=== PATIENT | female | born 1965 | race Caucasian/White ===

== ENCOUNTER 2020-11-24 08:58 | Outpatient (CLI) | payer BC, SELFPAY ==
--- NOTE | ~2020-11-24 | US_ITS ---
US abdomen limited DATE: 11/24/2020 09:23 INDICATION: Epigastric and right upper quadrant abdominal pain TECHNIQUE: Real-time imaging of liver, pancreas, gallbladder areas COMPARISON: 02/21/[address] abdomen pelvis FINDINGS: There is no evidence of gallstones, gallbladder wall thickening or abnormal pericholecystic fluid collection. Negative sonographic Burns's sign. The common bile duct measures 5 mm, within nor mal limits. Hepatic steatosis. No hepatic space-occupying mass lesion is evident. Normal hepatopedal portal venou s flow direction. The pancreatic tail is obscured. The pancreas is otherwise unremarkable. IMPRESSION: Hepatic steatosis Negative gallbladder The pancreatic tail is obscured by bowel gas and not evaluated Reviewed, dictated and finalized at [facility]. Reviewed, dictated and finalized at [facility].
== END 2020-11-24 08:59 | disposition home or self-care (01) ==
PROVIDERS: PCP Internal Medicine; Visit Provider Internal Medicine
DX: R10.13 Epigastric pain (principal); K76.0 Fatty (change of) liver, not elsewhere classified
CPT/HCPCS: 76705

== ENCOUNTER → 2021-05-04 12:10 | Outpatient (CLI) | payer BC, SELFPAY ==
--- NOTE | ~2021-05-04 | MM_ITS ---
EXAMINATION: MM scrn blake implant BI w latanya HISTORY: Screening mammogram TECHNIQUE: Craniocaudal and mediolateral oblique 3-D tomosynthesis images with implant displacement a nd synthetic 2-D images were generated. Craniocaudal and mediolateral oblique views of the breasts wi thout implant displacement were obtained using full field digital mammography. CAD analysis was submi tted and interpreted. COMPARISON: 07/2011 bilateral implant screening mammogram BREAST PARENCHYMAL COMPOSITION: The breasts are heterogeneously dense, which may obscure small masses . FINDINGS: There are bilateral collapsed breast implants with some adjacent calcifications. Biopsy marker is present in the left breast; history of benign left breast stereotactic biopsy in 201 0. There is no evidence of suspicious mass, calcification, or architectural distortion to suggest mal ignancy in either breast. There has been no suspicious interval change. IMPRESSION: 1. No mammographic evidence of malignancy. 2. Recommend routine screening mammography in one year. BI-RADS Category 1: Negative Reviewed, dictated and finalized at location [facility].
== END ==
PROVIDERS: PCP Internal Medicine; Visit Provider Internal Medicine
DX: Z12.31 Encounter for screening mammogram for malignant neoplasm of breast (principal)
CPT/HCPCS: 77063; 77067

== ENCOUNTER 2021-08-16 00:08 | Day surgery (SDC) | payer OTHER, SELFPAY ==
[2021-08-11 09:38] VITALS: BMI 24.3
--- NOTE | 2021-08-11 09:39 | PC.NURSE ---
Report to the Outpatient Waiting Room, entrance under the green pavilion located off [facility], at time __1100__ on date __[id number]_. OR Time: _1300__. - You and your visitor will be asked a series of questions to screen for COVID 19 for your protection. - A mask is required within the hospital. - Only one visitor is allowed at this time. Patient visitors will be guided where to wait when not with patient. Preoperative COVID Testing Requirements: No COVID Test needed if: (proof is required; if not received patient will have Rapid Test prior to entry) - Patient has received COVID Vaccine at least 14 days prior to procedure date or - Patient has positive COVID test result within last 90 days of surgery date. COVID Test needed if above criteria is not met If not COVID vaccinated a COVID test must be conducted within 72 hours of surgery and patient is asked to isolate self from time of testing until procedure. You will go to the [facility] for your COVID testing. The [facility] site is located at the corner of [address] [facility]. You will only be called if COVID results are positive and your surgeon may reschedule your elective surgery date. Patients may have clear liquids (water, carbonated beverages, clear teas, apple juice) until 3 hours prior to surgery with a maximum of 20 ounces. - No food from midnight until time of surgery - Infants may have breast milk until 4 hours before surgery, infant formula 6 hours prior to surgery. - Children will be allowed to drink immediately following surgery. If applicable, please bring a bottle or sippy cup to assist with drinking. Juice, water, soda, and popsicles are readily available. For infants on formula, please bring formula the day of surgery. Pacifiers are allowed. Take the following medications with a SIP of water the morning of surgery: Medications to discontinue per physician Date to take last dose Please no make-up, nail bengali, hairspray, perfume, deodorant, or body powder the day of surgery. No jewelry (including any body piercings) or valuables the day of surgery, leave them at home. Please take a shower or bath the night before, or the morning of, surgery with an antibacterial soap. Wear comfortable, loose fitting clothing. Children are encouraged to wear pajamas. - Jewelry must be removed prior to entering the operating room. Rings and piercings that are not removed may be cut off. - The hospital will not accept responsibility for valuables. - Please leave all valuables, including medications, at home the day of surgery. If you are going home after surgery, a licensed delivery driver must drive you home. - NO public transportation without another adult. - We recommend that an adult stay with you for 24 hours following discharge. - We also recommend that you do not drive, make important decision, drink alcoholic beverages, or take any drugs that were not prescribed by your health care provider for at least 24 hours after your discharge time. For Pediatric surgeries, we recommend two adults accompany the child home (only one inside the building at this time). Follow any additional instructions given to you from your surgeon. Telephone instructions given to patient___and asked if any additional questions and then verbalized understanding. Patient advised to call surgeon office or pre surgery nurse liaison [phone] if any additional questions.
[2021-08-16] VITALS (9 sets, daily range): BP systolic 116–142; BP diastolic 74–87; PULSE 91–103; RESP 12–18; TEMP 36.4–36.9; O2SAT 93–100
[2021-08-16] MEDS: LACTATED RINGERS 1,000 ML 30 ML IV CONT ×2 (11:25→14:45)
[2021-08-16] MEDS: ONDANSETRON INJ 4 MG/2 ML VIAL IV PUSH (11:36)
[2021-08-16] MEDS: FAMOTIDINE 20 MG/2 ML VIAL IV PUSH (11:36)
--- NOTE | 2021-08-16 12:37 | P.PNAN_ITS ---
Anes - Initial Pre Proc Eval Procedure: Operation Date: 08/16/21 13:00 Proposed Procedures p Bilateral Breast Implant Exchange - Rey Stern MD Date/Time: 08/16/21 12:37 Surgeon: Rey Stern MD Pre Op Diagnosis: right breast implant rupture Patient Data Age: 56 Gender: F Height: 1.73 m Weight: 72 kg Last Vital Signs Temp 36.9 C 08/16/21 11:40 Pulse 97 08/16/21 11:40 Resp 16 08/16/21 11:40 BP 132/85 08/16/21 11:40 Pulse Ox 100 08/16/21 11:40 Allergies Allergy/AdvReac Type Severity Reaction Status Date / Time codeine AdvReac Mild Nausea Verified 08/16/21 11:05 prednisone AdvReac Mild Headache Verified 08/16/21 11:05 Home Medications Medication Instructions Recorded Confirmed Type meloxicam 15 mg tablet 15 mg PO DAILY tablet 07/29/20 08/11/21 History fenofibrate 160 mg tablet 160 mg PO DAILY #90 tablet 04/25/21 08/11/21 Rx acamprosate 333 mg tablet,delayed 666 mg PO TID #180 tablet 06/20/21 08/11/21 Rx release duloxetine 60 mg capsule,delayed 60 mg PO DAILY #30 cap 06/30/21 08/16/21 Rx release doxepin 10 mg capsule See Rx Instructions .ROUTE 07/18/21 08/11/21 Rx .COMPLEX #60 cap docusate sodium 100 mg capsule 100 mg PO DAILY #14 cap 08/02/21 08/11/21 Rx chlordiazepoxide HCl 25 mg capsule 25 mg PO BID PRN #50 cap 08/09/21 08/11/21 Rx Patient hx anesthesia problems: post op nausea/vomiting Family hx anesthesia problems: none Results Review: All pre-operative results and documents have been reviewed as part of the pre-operative evaluation. [facility] Past Medical History Medical History Alcoholism Anemia Colonic inertia Generalized anxiety disorder Hyperlipidemia Hypertension Liver lesion Vitamin D deficiency Surgical History Surgical History H/O breast augmentation 08/16/2021 H/O colectomy 2002 Family History Family History Father Family history of thyroid disease Mother Patient's mother is Sibling Asthma Social History Social History Social History: caffeine-daily Smoking status: Never smoker Alcohol intake: former Alcohol use details: Pt last drink was 06/25/2019 Living arrangements: alone Spiritual care concerns: No Anes - Eval Final PreProcedure Day of Procedure 08/16/21 12:37 Patient weight: normal Heart: regular rate and rhythm Lungs: clear to auscultation Airway: Mallampati scale class II Neurological: alert and oriented Last oral intake: >/= 8 hours ASA classification: III Emergent: no Anesthetic plan: proceed Anesthesia type and monitoring: general LMA and standard monitoring Results Review: All pre-operative results and documents have been reviewed as part of the pre-operative evaluation. Informed Consent: The patient's anesthetic plan and its attendant risks and benefits were discussed with the patient/family/POA. Questions were solicited and answers provided to the satisfaction of the patient/family/POA.
[2021-08-16] MEDS: SCOPOLAMINE 1.5 MG PATCH TRANSDERM (12:53)
--- NOTE | 2021-08-16 12:56 | WPDHPUPDATE1 ---
History and Physical Update Update Date/Time: 08/16/21 12:56 History and Physical has been reviewed, including an updated exam of the patient. There are NO changes in the patient's condition. Risks, benefits, and alternatives have been discussed and questions answered. Patient agrees to proceed with procedure.
--- NOTE | 2021-08-16 13:05 | W.PM.PROC2 ---
Procedure Note - Detailed Date of Procedure 08/16/21 Pre-op Diagnosis right breast implant rupture Post-op Diagnosis same Procedure Performed Bilateral breast implant exchange Surgeon Rey Stern MD Anesthesia general Findings Previous implants: Textured 300cc saline. Bilateral ruptured. New Implants: Bilateral Natrelle Saline Smooth 325cc filled to 340cc Right - REF# [id number] SN [id number] - REF# [id number] SN [id number] Description of Procedure Preoperatively the risks, benefits, alternatives were discussed in extensive detail. I wanted her to be very realistic about the risks involved as well as expectations. Made sure answered all of her questions to her satisfaction. She understands she has ptosis and will still have this ptosis. This does not correct that. We are simply replacing her previous implants. Further she understands I can never guarantee final size as we do not know her current implant size. There can be discrepancy because we do not have this information available. She would like to send capsules (at her expense) to pathology if textured. All questions were answered to her satisfaction today. Consent obtained. She was marked in the preoperative holding area with her verification. She was taken to the operating room placed supine on the operating table. Anesthesia provided by anesthesiology and prepped and draped in a standard sterile fashion. Surgical time-out was taken. 1% lidocaine and 0.25% Marcaine with epinephrine was used anesthetize as a field block. Fifteen blade used to make an incision at the previous IMF incision dissection was continued down to the pocket was identified. Implants removed. I copiously irrigated with 3 L of saline solution. Capsulotomy is were performed as necessary (subtotal) due to textured implants. The capsules were sent to pathology. No worrisome features. I then copiously irrigated with triple antibiotic Betadine solution. Wash my gloves. Throughout the procedure we had Tegaderm nipple Adam in place. On the back table I prepared the saline implant this was introduced into the pocket. We filled using a fill kit to the volumes as above. This was closed using 2-0 Vicryl followed by 3-0 Monocryl in a running subcuticular 4-0 Monocryl. Final closure was tissue glue. Estimated Blood Loss 30 Drains No Packing Yes (Bilateral capsules) Pathology none sent Complications No immediate complications Condition stable Disposition PACU
[2021-08-16] MEDS: MIDAZOLAM HCL (*CRX) 2 MG/2 ML VIAL IV PUSH (13:06)
[2021-08-16] MEDS: ceFAZolin 2 GM/D5W 50 ML 2 GM/50 ML BAG IVPB (13:33)
[2021-08-16] MEDS: BUPIVACAINE HCL 0.25% PF 30 ML VIAL INFILTRATE (14:00)
[2021-08-16] MEDS: LIDO 1%/EPINEPHRINE 1:100,000 50 ML VIAL INFILTRATE (14:00)
== END 2021-08-16 16:45 | disposition home or self-care (01) ==
PROVIDERS: PCP Internal Medicine; Visit Provider Surgery Plastic and Reconstructive Surgery
PROC: (CPT 19342; principal; 2021-08-16 13:00)
DX: T85.41XA Breakdown (mechanical) of breast prosthesis and implant, initial encounter (principal); Y83.8 Other surgical procedures as the cause of abnormal reaction of the patient, or of later complication, without mention of misadventure at the time of the procedure; I10 Essential (primary) hypertension; E78.5 Hyperlipidemia, unspecified; D64.9 Anemia, unspecified; F41.1 Generalized anxiety disorder; Z90.49 Acquired absence of other specified parts of digestive tract; F10.21 Alcohol dependence, in remission
CPT/HCPCS: 19370; 19325; 88304; A9270; J0171; J0690; J1580; J2250; J2270; J2405; J2704; J7120

== ENCOUNTER 2021-11-19 09:53 | Outpatient (CLI) | payer BC, SELFPAY ==
[2021-11-19 10:16] LABS: Basophils Percent Auto 1.2 % (0.2-1.2); Eosinophils Absolute Auto 0.2 K/mm3 (0-0.3); Eosinophils Percent Auto 5.6 % (0-4.4); Hematocrit 26.6 % (37.0-47.0); Hemoglobin 7.9 g/dL (12.0-15.0); Lymphocytes Absolute Auto 1.12 K/mm3 (0.9-3.2); Lymphocytes Percent Auto 33.1 % (18.3-44.2); Mean Corpuscular HGB Conc 29.7 g/dl (32-36); Mean Corpuscular Hemoglobin 22.6 pg (26-34); Monocytes Absolute Auto 0.5 K/mm3 (0.1-0.6); Monocytes Percent Auto 14.8 % (2.6-8.5); Neutrophils Absolute Auto 1.5 K/mm3 (1.3-6.7); Neutrophils Percent Auto 45.3 % (45.5-73.1); Platelet Count Result 213 k/mm3 (150-375); Red Cell Distribution Width 18.7 % (11.5-14.5); Reticulocyte Hemoglobin Conten 22.6 pg (28.2-35.7); Reticulocyte Percent 1.52 % (0.7-4.3); Reticulocytes Absolute 0.05 B/L (32.2-175.7); White Blood Count 3.4 K/mm3 (4.5-10.0)
[2021-11-19 10:30] LABS: Anisocytosis 1+ (NORMAL); Hypochromasia 2+ (NORMAL); Platelet Estimate Adequate (Adequate)
== END 2021-11-19 09:54 | disposition home or self-care (01) ==
LOC: ANHLAB 09:55
PROVIDERS: PCP Internal Medicine; Visit Provider Internal Medicine
DX: D64.9 Anemia, unspecified (principal)
CPT/HCPCS: 36415; 85025; 85046; 86850; 86900; 86901

== ENCOUNTER 2021-12-13 12:09 | Outpatient (CLI) | payer BC, SELFPAY ==
[2021-12-13 12:33] LABS: Basophils Absolute Auto 0.1 K/mm3 (0.0-0.1); Basophils Percent Auto 1.6 % (0.2-1.2); Eosinophils Absolute Auto 0.2 K/mm3 (0-0.3); Eosinophils Percent Auto 4.6 % (0-4.4); Hematocrit 23.6 % (37.0-47.0); Hemoglobin 7.3 g/dL (12.0-15.0); Immature Granulocyte Absolute 0.01 K/mm3 (0.00-0.031); Immature Granulocyte Percent A 0.2 % (0-0.5); Lymphocytes Absolute Auto 1.23 K/mm3 (0.9-3.2); Lymphocytes Percent Auto 24.5 % (18.3-44.2); Mean Corpuscular HGB Conc 30.9 g/dl (32-36); Mean Corpuscular Hemoglobin 23.6 pg (26-34); Mean Corpuscular Volume 76.4 fl (80-100); Mean Platelet Volume 9.2 fl (7.4-10.4); Monocytes Absolute Auto 0.8 K/mm3 (0.1-0.6); Monocytes Percent Auto 15.7 % (2.6-8.5); Neutrophils Absolute Auto 2.7 K/mm3 (1.3-6.7); Neutrophils Percent Auto 53.4 % (45.5-73.1); Platelet Count Result 330 k/mm3 (150-375); Red Blood Count 3.09 M/mm3 (4.2-5.4); Red Cell Distribution Width 21.4 % (11.5-14.5)
== END 2021-12-13 12:10 | disposition home or self-care (01) ==
LOC: ANHLAB 12:11
PROVIDERS: PCP Internal Medicine; Visit Provider Internal Medicine
DX: D64.9 Anemia, unspecified (principal)
CPT/HCPCS: 36415; 85025

== ENCOUNTER 2021-12-14 08:49 | Outpatient (RCR) | payer BC, SELFPAY ==
[2021-12-14 09:08] LABS: Hematocrit 26.7 % (37.0-47.0); Hemoglobin 7.7 g/dL (12.0-15.0)
[2021-12-14] MEDS: SODIUM CHLORIDE 0.9% IV 250 ML 30 ML IV CONT (10:33)
[2021-12-14 10:38] VITALS: BP 141/91; PULSE 85; RESP 18; TEMP 36.4; O2SAT 100
[2021-12-14 10:53] VITALS: BP 140/89; PULSE 87; RESP 18; TEMP 36.7; O2SAT 100
[2021-12-14 11:53] VITALS: BP 142/91; PULSE 84; RESP 16; TEMP 36.8; O2SAT 100
[2021-12-14 12:53] VITALS: BP 144/92; PULSE 79; RESP 18; TEMP 36.5; O2SAT 100
[2021-12-14 13:32] VITALS: BP 147/88; PULSE 81; RESP 18; TEMP 36.7; O2SAT 100
== END 2022-03-14 23:59 | disposition home or self-care (01) ==
LOC: ANHCPCTRAN 08:49
PROVIDERS: PCP Internal Medicine; Visit Provider Internal Medicine
DX: D64.9 Anemia, unspecified (principal)
CPT/HCPCS: 36415; 36430; 85014; 85018; 86850; 86900; 86901; 86920; J7050; P9016

== ENCOUNTER 2021-12-15 01:01 | Day surgery (SDC) | payer BC, SELFPAY ==
[2021-11-30 10:35] VITALS: BMI 24.5
--- NOTE | 2021-11-30 10:38 | PC.NURSE ---
Patient has not received a call from [facility] yet. Provided phone number of pharmacy for patient to follow up.
[2021-12-15 09:35] VITALS: BP 166/81; PULSE 97; RESP 18; TEMP 36.6; O2SAT 99; BMI 24.7
[2021-12-15] MEDS: LACTATED RINGERS 1,000 ML 150 ML IV CONT (10:03)
--- NOTE | 2021-12-15 10:21 | PM.HPGS ---
History of Present Illness History of Present Illness Consent: Risks, benefits, and alternatives have been discussed and questions answered. Patient agrees to proceed with procedure. Chief complaint: anemia Narrative: Rama Sol is a 56 year old female was found to be anemic. Her hemoglobin has dropped to 7.3. Last year her hemoglobin was greater than 11. At that time a ferritin level was normal. She does have a history of heavy alcohol abuse Review of Systems Review of Systems: All systems reviewed & are unremarkable except as noted in HPI and below PMFSH Past Medical History Medical History Alcoholism Anemia Colonic inertia Generalized anxiety disorder Hyperlipidemia Hypertension Liver lesion Vitamin D deficiency Surgical History Surgical History H/O breast augmentation 08/16/2021 H/O colectomy 2002 Family History Family History Father Family history of thyroid disease Mother Patient's mother is Sibling Asthma Social History Social History Social History: caffeine-daily Smoking status: Never smoker Alcohol intake: former Substance use: never Substance use type: does not use Living arrangements: alone Spiritual care concerns: No Meds Home Medications and Allergies Home Medications Medication Instructions Recorded Confirmed Type meloxicam 15 mg tablet 15 mg PO DAILY 07/29/20 12/15/21 History fenofibrate 160 mg tablet 160 mg PO DAILY #90 tabs 04/25/21 12/15/21 Rx acamprosate 333 mg tablet,delayed 666 mg PO TID #180 tabs 09/19/21 12/15/21 Rx release duloxetine 60 mg capsule,delayed 60 mg PO DAILY #90 caps 10/19/21 12/15/21 Rx release chlordiazepoxide HCl 25 mg capsule 25 mg PO TID PRN anxiety and 11/01/21 12/15/21 Rx alcohol cravings #50 caps sodium sul 1.479 gram-potas ch See Rx Instructions PO PER PKG DIR 11/21/21 12/15/21 Rx 0.188 gram-magnes sul 0.225 gram #24 tabs tablet (Sutab) doxepin 10 mg capsule 20 mg PO HS PRN Insomnia 11/30/21 12/15/21 History Allergies Allergy/AdvReac Type Severity Reaction Status Date / Time propofol AdvReac Intermediate Confusion Verified 12/15/21 09:49 codeine AdvReac Mild Nausea Verified 12/15/21 09:49 prednisone AdvReac Mild Headache Verified 12/15/21 09:49 Vital Signs Vital Signs - 24 hr 12/15/21 09:35 Temperature 36.6 C Pulse Rate 97 Respiratory Rate 18 Blood Pressure 166/81 H Pulse Oximetry 99 Oxygen Delivery Room Air Exam Const: General: alert Orientation/consciousness: patient oriented x3 Resp: Auscultation: clear to auscultation bilaterally Cardio: Rhythm: regular rhythm GI: GI Palp: Yes Soft to palpation and No Tenderness to palpation present (GI) Neuro: General: patient oriented x3 Assessment and Plan Assessment and plan (1) Iron deficiency anemia: Code(s): D50.9 - Iron deficiency anemia, unspecified Status: Acute Assessment and Plan: EGD with possible biopsy or dilatation or cautery. Colonoscopy with possible biopsy or polypectomy or cautery or injection of substances.
--- NOTE | 2021-12-15 10:24 | WPDANESEPPF ---
Anes - Initial Pre Proc Eval Procedure: Operation Date: 12/15/21 11:00 Proposed Procedures p Esophagogastroduodenoscopy & Colonoscopy - Ross Peacock MD Date/Time: 12/15/21 10:24 Surgeon: Ross Peacock MD Pre Op Diagnosis: anemia Patient Data Age: 56 Gender: F Height: 1.73 m Weight: 73.8 kg Last Vital Signs Temp 97.9 F 12/15/21 09:35 Pulse 97 12/15/21 09:35 Resp 18 12/15/21 09:35 BP 166/81 H 12/15/21 09:35 Pulse Ox 99 12/15/21 09:35 O2 Del Method Room Air 12/15/21 09:35 Allergies Allergy/AdvReac Type Severity Reaction Status Date / Time propofol AdvReac Intermediate Confusion Verified 12/15/21 09:49 codeine AdvReac Mild Nausea Verified 12/15/21 09:49 prednisone AdvReac Mild Headache Verified 12/15/21 09:49 Home Medications Medication Instructions Recorded Confirmed Type meloxicam 15 mg tablet 15 mg PO DAILY 07/29/20 12/15/21 History fenofibrate 160 mg tablet 160 mg PO DAILY #90 tabs 04/25/21 12/15/21 Rx acamprosate 333 mg tablet,delayed 666 mg PO TID #180 tabs 09/19/21 12/15/21 Rx release duloxetine 60 mg capsule,delayed 60 mg PO DAILY #90 caps 10/19/21 12/15/21 Rx release chlordiazepoxide HCl 25 mg capsule 25 mg PO TID PRN anxiety and 11/01/21 12/15/21 Rx alcohol cravings #50 caps sodium sul 1.479 gram-potas ch See Rx Instructions PO PER PKG DIR 11/21/21 12/15/21 Rx 0.188 gram-magnes sul 0.225 gram #24 tabs tablet (Sutab) doxepin 10 mg capsule 20 mg PO HS PRN Insomnia 11/30/21 12/15/21 History Patient hx anesthesia problems: none Family hx anesthesia problems: none Results Review: All pre-operative results and documents have been reviewed as part of the pre-operative evaluation. [facility] Past Medical History Medical History Alcoholism Anemia Colonic inertia Generalized anxiety disorder Hyperlipidemia Hypertension Liver lesion Vitamin D deficiency Surgical History Surgical History H/O breast augmentation 08/16/2021 H/O colectomy 2002 Family History Family History Father Family history of thyroid disease Mother Patient's mother is Sibling Asthma Social History Social History Social History: caffeine-daily Smoking status: Never smoker Alcohol intake: former Substance use: never Substance use type: does not use Living arrangements: alone Spiritual care concerns: No Anes - Eval Final PreProcedure Day of Procedure 12/15/21 10:24 Patient weight: overweight Heart: regular rate and rhythm Lungs: clear to auscultation Neurological: alert and oriented Last oral intake: >/= 8 hours ASA classification: II Emergent: no Anesthetic plan: proceed Anesthesia type and monitoring: general GIVS and standard monitoring Results Review: All pre-operative results and documents have been reviewed as part of the pre-operative evaluation. Informed Consent: The patient's anesthetic plan and its attendant risks and benefits were discussed with the patient/family/POA. Questions were solicited and answers provided to the satisfaction of the patient/family/POA.
--- NOTE | 2021-12-15 10:44 | SUR.OPER ---
EGD ended at 1042, Colonoscopy began at 1048.
[2021-12-15 10:56] VITALS: BP 134/83; PULSE 76; RESP 17; O2SAT 99
[2021-12-15 11:06] VITALS: BP 137/90; PULSE 76; RESP 19; O2SAT 100
[2021-12-15 11:16] VITALS: BP 150/88; PULSE 73; RESP 15; O2SAT 100
== END 2021-12-15 11:25 | disposition home or self-care (01) ==
PROVIDERS: PCP Internal Medicine; Visit Provider Internal Medicine Gastroenterology
PROC: 0DJ08ZZ Inspection of Upper Intestinal Tract, Via Natural or Artificial Opening Endoscopic (ICD-10-PCS; CPT 43235; principal; 2021-12-15 11:00)
DX: D50.9 Iron deficiency anemia, unspecified (principal); K64.8 Other hemorrhoids; Z98.0 Intestinal bypass and anastomosis status; Z90.49 Acquired absence of other specified parts of digestive tract; K21.9 Gastro-esophageal reflux disease without esophagitis; K29.70 Gastritis, unspecified, without bleeding; K31.7 Polyp of stomach and duodenum; I10 Essential (primary) hypertension; E78.5 Hyperlipidemia, unspecified; E55.9 Vitamin D deficiency, unspecified; F41.1 Generalized anxiety disorder; F10.20 Alcohol dependence, uncomplicated
CPT/HCPCS: 43239; 45330; 87081; 88305; J2704; J7120

== ENCOUNTER 2022-01-12 13:47 | Outpatient (CLI) | payer BC, SELFPAY ==
[2022-01-12 14:04] LABS: Basophils Absolute Auto 0.1 K/mm3 (0.0-0.1); Basophils Percent Auto 1.6 % (0.2-1.2); Eosinophils Absolute Auto 0.3 K/mm3 (0-0.3); Eosinophils Percent Auto 4.8 % (0-4.4); Hematocrit 29.1 % (37.0-47.0); Hemoglobin 8.8 g/dL (12.0-15.0); Immature Granulocyte Absolute 0.01 K/mm3 (0.00-0.031); Immature Granulocyte Percent A 0.2 % (0-0.5); Lymphocytes Absolute Auto 1.71 K/mm3 (0.9-3.2); Lymphocytes Percent Auto 30.7 % (18.3-44.2); Mean Corpuscular HGB Conc 30.2 g/dl (32-36); Mean Corpuscular Hemoglobin 25.3 pg (26-34); Mean Corpuscular Volume 83.6 fl (80-100); Mean Platelet Volume 9.9 fl (7.4-10.4); Monocytes Absolute Auto 0.9 K/mm3 (0.1-0.6); Monocytes Percent Auto 16.2 % (2.6-8.5); Neutrophils Absolute Auto 2.6 K/mm3 (1.3-6.7); Neutrophils Percent Auto 46.5 % (45.5-73.1); Platelet Count Result 277 k/mm3 (150-375); Red Blood Count 3.48 M/mm3 (4.2-5.4); Red Cell Distribution Width 20.9 % (11.5-14.5); White Blood Count 5.6 K/mm3 (4.5-10.0)
[2022-01-12 17:02] LABS: Iron 32 ug/dL (37-170)
[2022-01-12 17:04] LABS: Alanine Aminotransferase 16 U/L (6-35); Albumin Level 4.8 g/dL (3.5-5.1); Alkaline Phosphatase 36 U/L (38-126); Anion Gap 11 mmol/L (8-16); Aspartate Amino Transferase 29 U/L (14-36); Bilirubin,Total 0.3 mg/dL (0.2-1.3); Blood Urea Nitrogen 13 mg/dL (7-17); Calcium 9.5 mg/dL (8.4-10.2); Carbon Dioxide 22 mmol/L (22-30); Chloride 107 mmol/L (98-107); Estimated Glomerular Filt Rate > 60; Glucose 86 mg/dL (65-110); Lactate Dehydrogenase 555 U/L (313-618); Sodium 140 mmol/L (137-145)
[2022-01-12 17:14] LABS: Percent Iron Saturation 6 % (20-50)
[2022-01-12 19:38] LABS: Folic Acid 6.5 ng/mL (2.76->20)
== END 2022-01-12 13:48 | disposition home or self-care (01) ==
LOC: ANHLAB 13:48
PROVIDERS: PCP Internal Medicine; Visit Provider Internal Medicine Hematology & Oncology
DX: D64.9 Anemia, unspecified (principal)
CPT/HCPCS: 36415; 80053; 82607; 82728; 82746; 83540; 83550; 83615; 85025

== ENCOUNTER 2022-01-14 09:20 | Emergency (ER) | payer BC, SELFPAY ==
[2022-01-14 09:30] VITALS: BP 152/91; PULSE 77; RESP 18; TEMP 36.4; O2SAT 100
[2022-01-14 09:46] LABS: Basophils Absolute Auto 0.1 K/mm3 (0.0-0.1); Eosinophils Absolute Auto 0.3 K/mm3 (0-0.3); Eosinophils Percent Auto 5.6 % (0-4.4); Hematocrit 29.7 % (37.0-47.0); Hemoglobin 8.8 g/dL (12.0-15.0); Immature Granulocyte Absolute 0.01 K/mm3 (0.00-0.031); Immature Granulocyte Percent A 0.2 % (0-0.5); Lymphocytes Absolute Auto 1.31 K/mm3 (0.9-3.2); Lymphocytes Percent Auto 26.4 % (18.3-44.2); Mean Corpuscular HGB Conc 29.6 g/dl (32-36); Mean Corpuscular Volume 84.4 fl (80-100); Mean Platelet Volume 9.8 fl (7.4-10.4); Monocytes Absolute Auto 0.8 K/mm3 (0.1-0.6); Monocytes Percent Auto 16.1 % (2.6-8.5); Neutrophils Absolute Auto 2.5 K/mm3 (1.3-6.7); Neutrophils Percent Auto 49.7 % (45.5-73.1); Platelet Count Result 318 k/mm3 (150-375); Red Blood Count 3.52 M/mm3 (4.2-5.4); Red Cell Distribution Width 20.5 % (11.5-14.5)
[2022-01-14 09:56] LABS: Alanine Aminotransferase 13 U/L (6-35); Albumin Level 4.6 g/dL (3.5-5.1); Alkaline Phosphatase 32 U/L (38-126); Anion Gap 9 mmol/L (8-16); Aspartate Amino Transferase 27 U/L (14-36); Bilirubin,Total 0.2 mg/dL (0.2-1.3); Blood Urea Nitrogen 11 mg/dL (7-17); Calcium 9.4 mg/dL (8.4-10.2); Carbon Dioxide 24 mmol/L (22-30); Chloride 109 mmol/L (98-107); Estimated CRCL calculation 62 ml/min; Estimated Glomerular Filt Rate > 60; Glucose 88 mg/dL (65-110); Potassium 4.1 mmol/L (3.4-5.0); Sodium 142 mmol/L (137-145)
[2022-01-14 10:08] LABS: Anisocytosis 1+ (NORMAL); Platelet Estimate Adequate (Adequate); Spherocytes 1+ (NORMAL)
[2022-01-14 10:20] VITALS: BP 149/61; PULSE 69; PULSE 70; RESP 18; O2SAT 100
--- NOTE | 2022-01-14 10:30 | ED.WEAKNESS ---
HPI - Weakness General Chief complaint: Weakness Stated complaint: low hgb Time Seen by Provider: 01/14/22 10:25 History of Present Illness HPI Narrative: pt long h/o anemia and iron defiency sent in by Dr Horn for infusion due to weakness labs 01/12 hgb low and iron low no other new issues long h/o black stools recent w/u neg for lesions Related Data Home Medications Medication Instructions Recorded Confirmed meloxicam 15 mg tablet 15 mg PO DAILY 07/29/20 12/15/21 Allergies Allergy/AdvReac Type Severity Reaction Status Date / Time propofol AdvReac Intermediate Confusion Verified 12/15/21 09:49 codeine AdvReac Mild Nausea Verified 12/15/21 09:49 prednisone AdvReac Mild Headache Verified 12/15/21 09:49 Review of Systems Constitutional: Comments: CONSTITUTIONAL: Denies fever, chills, or sweats. EYES: Denies visual changes, redness, or discharge. ENT: Denies rhinorrhea, congestion, sore throat, or otalgia. CARDIOVASCULAR: Denies chest pain, palpitations, or edema. RESPIRATORY: Denies cough or dyspnea. GASTROINTESTINAL: Denies abdominal pain, nausea, vomiting, or diarrhea. GENITOURINARY: Denies dysuria or hematuria. SKIN: Denies rash or itching. MUSCULOSKELETAL: Denies back pain, joint pain, or myalgia. NEUROLOGIC: Denies headache, numbness, has weakness. PSYCHIATRIC: Denies anxiety or depression. [facility] Past Medical History Medical History Alcoholism Anemia Colonic inertia Generalized anxiety disorder Hyperlipidemia Hypertension Liver lesion Vitamin D deficiency Surgical History Surgical History H/O breast augmentation 08/16/2021 H/O colectomy 2002 Family History Family History Father Family history of thyroid disease Mother Patient's mother is Sibling Asthma Social History Social History Social History: caffeine-daily Smoking status: Never smoker Alcohol intake: former Substance use: never Substance use type: does not use Spiritual care concerns: No Exam Const: Other: APPEARANCE: Well appearing, no pain in distress, well-nourished. Head normocephalic atraumtaic. EYES: PERRLA/EOMI, conjunctivae very clear. NOSE: Normal no drainage EARS:TMS clear Irene Sigala, with good light reflex. THROAT: Pharynx clear, no exudate. NECK: Supple. No adenopathy, no masses. RESPIRATORY: Airway patent, repsirations nonlabored. Clear to auscultation bilaterally, no rales, rhonchi, wheezing. CARDIOVASCULAR: Regular rate and rhythm without murmurs rubs or gallops. ABDOMINAL: Soft, nontender, nondistended, no hepatosplenomegally MUSCULOSKELETAl: Moves all extremities. Strenght/ROM intact, No edema, No calf tenderness. NEURO: Alert. Cranial nerves II through XII intact. Good gait. Good coordination SKIN:: Warm, dry. Normal Color PSYCHIATRIC: Normal affect/mood, normal interaction with parents. Course Course Emergency Course: taked with Dr Horn says with hgb same just give 500mg iv iron then send home and he will f/u in office at [facility] explkained to pt good with plan Vital Signs Vital signs: Vital Signs Temperature 36.4 C L 01/14/22 09:30 Pulse Rate 77 01/14/22 09:30 Respiratory Rate 18 01/14/22 09:30 Blood Pressure 152/91 H 01/14/22 09:30 Pulse Oximetry 100 01/14/22 09:30 Oxygen Delivery Room Air 01/14/22 09:30 Temperature 36.4 C L 01/14/22 09:30 Pulse Rate 69 01/14/22 10:20 Respiratory Rate 18 01/14/22 10:20 Blood Pressure 149/61 H 01/14/22 10:20 Pulse Oximetry 100 01/14/22 10:20 Oxygen Delivery Room Air 01/14/22 09:30 MDM - Weakness Lab Data Result diagrams: 01/14/22 09:39 01/14/22 09:39 Labs: Lab Results 01/14/22 01/14/22 01/14/22 Range/Units 09:39 09:39 09:39 WBC 5.0 (4.5
[2022-01-14] MEDS: IRON SUCROSE COMPLEX 500 MG in SODIUM CHLORIDE 0.9% IV 250 ML 78.57 MG IVPB (11:38)
[2022-01-14 12:17] LABS: Appearance Urine Clear (Clear); Bilirubin Urine Negative (Negative); Blood Urine Negative (Negative); Color Urine Yellow (Yellow); Glucose Urine UA Negative (Negative); Ketones Urine Negative (Negative); Leukocyte Esterase Ur Negative LEU/UL (Negative); Nitrate Urine Negative (Negative); Protein Urine Negative (Negative); Urobilinogen Urine 0.2 mg/dL (<2.0)
[2022-01-14 12:23] LABS: Add Urine Microscopic? NO
[2022-01-14 14:20] LABS: SARS-CoV-2 RNA PCR Negative
[2022-01-14 16:19] VITALS: PULSE 82; RESP 18; O2SAT 98
== END 2022-01-14 16:20 | disposition home or self-care (01) ==
PROVIDERS: Emergency Provider Emergency Medicine; PCP Internal Medicine
DX: D50.9 Iron deficiency anemia, unspecified (principal); R53.1 Weakness; E78.5 Hyperlipidemia, unspecified; I10 Essential (primary) hypertension; Z79.1 Long term (current) use of non-steroidal anti-inflammatories (NSAID); Z20.822 Contact with and (suspected) exposure to COVID-19
CPT/HCPCS: 36415; 80053; 81003; 84443; 85025; 86850; 86900; 86901; 96365; 96366; 99284; C9803; J1756; J7050; U0003; U0005

== ENCOUNTER 2022-02-07 19:05 | Emergency (ER) | payer BC, SELFPAY ==
--- NOTE | ~2022-02-07 | XR_ITS ---
EXAMINATION: XR chest 2V Exam Date/Time: 02/07/2022 19:35 CDT HISTORY: chest pain Comparison: None available. RESULT: Lines, tubes, and devices: None. Lungs and pleura: Subsegmental bibasilar opacities. Cardiomediastinal silhouette: Unremarkable. Other: No acute osseous or upper abdominal finding. IMPRESSION: Likely bibasilar atelectasis. Otherwise no acute cardiac pulmonary process. Infection not excluded. Reviewed, dictated and finalized at location K. IMPRESSION: Likely bibasilar atelectasis. Otherwise no acute cardiac pulmonary process. Inf ection not excluded.
[2022-02-07 19:07] VITALS: BP 138/92; PULSE 96; RESP 18; TEMP 36.3; O2SAT 98
--- NOTE | 2022-02-07 19:17 | ECG_ITS ---
Measurements Intervals [place] Rate: 85 P: 24 FL: 161 QRS: 19 QRSD: 95 T: 57 QT: 383 QTc: 458 Interpretive Statements SINUS RHYTHM BORDERLINE ST-T WAVE ABNORMALITY- ANT/HIGH LAT LEADS BASELINE WANDER- III, V2 BORDERLINE ECG Electronically Signed On 02-07-2022 20:15:21 CDT by Qasim Coto D.O.
[2022-02-07 19:35] VITALS: PULSE 86
[2022-02-07] MEDS: ASPIRIN 81 MG CHEWABLE TABLET 324 MG PO (19:39)
[2022-02-07 19:45] LABS: Basophils Absolute Auto 0.1 K/mm3 (0.0-0.1); Basophils Percent Auto 1.6 % (0.2-1.2); Eosinophils Absolute Auto 0.3 K/mm3 (0-0.3); Eosinophils Percent Auto 3.5 % (0-4.4); Hematocrit 32.6 % (37.0-47.0); Hemoglobin 10.6 g/dL (12.0-15.0); Immature Granulocyte Absolute 0.03 K/mm3 (0.00-0.031); Immature Granulocyte Percent A 0.4 % (0-0.5); Lymphocytes Absolute Auto 1.49 K/mm3 (0.9-3.2); Mean Corpuscular HGB Conc 32.5 g/dl (32-36); Mean Corpuscular Hemoglobin 28.3 pg (26-34); Mean Corpuscular Volume 87.2 fl (80-100); Mean Platelet Volume 11.3 fl (7.4-10.4); Monocytes Absolute Auto 1.1 K/mm3 (0.1-0.6); Monocytes Percent Auto 14.6 % (2.6-8.5); Neutrophils Absolute Auto 4.5 K/mm3 (1.3-6.7); Neutrophils Percent Auto 59.9 % (45.5-73.1); Platelet Count Result 204 k/mm3 (150-375); Red Blood Count 3.74 M/mm3 (4.2-5.4); Red Cell Distribution Width 24.3 % (11.5-14.5); White Blood Count 7.5 K/mm3 (4.5-10.0)
--- NOTE | 2022-02-07 19:53 | ED.GENADULT ---
HPI - General Adult General Chief complaint: Chest Pain <Arron Cabral MD - Last Filed: 02/07/22 22:10> Stated complaint: chest pain <Arron Cabral MD - Last Filed: 02/07/22 22:10> Time Seen by Provider: 02/07/22 19:19 <Arron Cabral MD - Last Filed: 02/07/22 22:10> History of Present Illness HPI narrative: 56-year-old female presented to the emergency department for evaluation of a perioral rash and chest pain. Patient states she has had a very stressful week due to loss of a close friend. Patient states approximately 3 days ago, immediately after the news of the loss of her friend, she began developing both the rash and the chest pain. Patient states she has been using Aquaphor, Blistex and Vaseline on her lips. Patient reports epigastric chest pain without radiation to her neck or back. Patient denies any prior cardiac history. Patient denies any new medications. <Arron Cabral MD - Last Filed: 02/07/22 22:10> Related Data Home medications: Home Medications Medication Instructions Recorded Confirmed meloxicam 15 mg tablet 15 mg PO DAILY 07/29/20 01/27/22 <Arron Cabral MD - Last Filed: 02/07/22 22:10> Allergies/adverse reactions: Allergies Allergy/AdvReac Type Severity Reaction Status Date / Time propofol AdvReac Intermediate Confusion Verified 02/07/22 19:37 codeine AdvReac Mild Nausea Verified 02/07/22 19:37 prednisone AdvReac Mild Headache Verified 02/07/22 19:37 <Arron Cabral MD - Last Filed: 02/07/22 22:10> Review of Systems Review of Systems: CONSTITUTIONAL: Denies fever, chills, or sweats. EYES: Denies visual changes, redness, or discharge. ENT: Denies rhinorrhea, congestion, sore throat, or otalgia. CARDIOVASCULAR: See HPI RESPIRATORY: Denies cough or dyspnea. GASTROINTESTINAL: Denies abdominal pain, nausea, vomiting, or diarrhea. GENITOURINARY: Denies dysuria or hematuria. SKIN: Denies rash or itching. MUSCULOSKELETAL: Denies back pain, joint pain, or myalgia. NEUROLOGIC: Denies headache, numbness, or weakness. PSYCHIATRIC: Anxiety <Arron Cabral MD - Last Filed: 02/07/22 22:10> [facility] Past Medical History Medical History: Medical History Alcoholism Anemia Colonic inertia Generalized anxiety disorder Hyperlipidemia Hypertension Liver lesion Vitamin D deficiency <Arron Cabral MD - Last Filed: 02/07/22 22:10> Surgical History Surgical History: Surgical History H/O breast augmentation 08/16/2021 H/O colectomy 2002 <Arron Cabral MD - Last Filed: 02/07/22 22:10> Family History Family History: Family History Father Family history of thyroid disease Mother Patient's mother is Sibling Asthma <Arron Cabral MD - Last Filed: 02/07/22 22:10> Social History Social History: Social History Social History: caffeine-daily Smoking status: Never smoker Alcohol intake: former Substance use: never Substance use type: does not use Spiritual care concerns: No <Arron Cabral MD - Last Filed: 02/07/22 22:10> Exam Narrative: APPEARANCE: Well appearing, no pain, no distress, well-nourished. HEAD: normocephalic, atraumatic. EYES: PERRLA/EOMI, conjunctivae clear. NOSE: Normal no drainage EARS:TMS clear with good light reflex. THROAT: Pharynx clear, no exudate. NECK: Supple. No adenopathy, no masses. RESPIRATORY: Airway patent, respirations nonlabored. Clear to auscultation bilaterally, no rales, rhonchi, wheezing. CARDIOVASCULAR: Regular rate and rhythm without murmurs rubs or gallops. ABDOMINAL: Soft, nontender, nondistended, normal bowel sounds MUSCULOSKELETAL: Moves all extremities. Strength/ROM intact, No edema, No calf tenderness. NEURO: Alert.
[2022-02-07 19:56] LABS: Alanine Aminotransferase 24 U/L (6-35); Albumin Level 5.3 g/dL (3.5-5.1); Alkaline Phosphatase 44 U/L (38-126); Anion Gap 15 mmol/L (8-16); Aspartate Amino Transferase 50 U/L (14-36); Bilirubin,Total 0.5 mg/dL (0.2-1.3); Blood Urea Nitrogen 8 mg/dL (7-17); Calcium 9.4 mg/dL (8.4-10.2); Carbon Dioxide 22 mmol/L (22-30); Chloride 102 mmol/L (98-107); Estimated CRCL calculation 78 ml/min; Estimated Glomerular Filt Rate > 60; Glucose 100 mg/dL (65-110); Lipase 258 U/L (23-300); Potassium 4.2 mmol/L (3.4-5.0); Sodium 139 mmol/L (137-145)
[2022-02-07 19:58] LABS: Partial Thromboplastin Time 24.3 SECONDS (22.3-36.8)
[2022-02-07 20:07] LABS: Anisocytosis 1+ (NORMAL); Hypochromasia 1+ (NORMAL); Ovalocytes 1+ (NORMAL); Platelet Estimate Adequate (Adequate); Target Cells 1+ (NORMAL); Troponin I 0.013 ng/mL (0.000-0.034)
[2022-02-07] MEDS: LORazepam INJ (*CRX) 2 MG/ML VIAL 1 MG IV PUSH (20:08)
--- NOTE | 2022-02-07 20:15 | PC.NURSE ---
Pt calling out stating she her lips her are hurting really bad. No new orders at this time
[2022-02-07 20:22] LABS: SARS-CoV-2 RNA PCR Negative
[2022-02-07 20:40] VITALS: BP 119/85; PULSE 83; RESP 18; O2SAT 97
--- NOTE | 2022-02-07 21:00 | PC.NURSE ---
Pt calling out c/o of severe burning and pain to her lips
--- NOTE | 2022-02-07 21:20 | PC.NURSE ---
Pt c/o severe lip pain. notified
[2022-02-07] MEDS: HYDROmorphone HCL INJ (*CRX) 1 MG/ML SYR IV PUSH (21:28)
[2022-02-07 22:46] VITALS: BP 115/77; PULSE 90; RESP 18; O2SAT 94
[2022-02-07 22:59] LABS: Troponin I < 0.012 ng/mL (0.000-0.034)
== END 2022-02-07 23:14 | disposition home or self-care (01) ==
PROVIDERS: Emergency Provider Emergency Medicine; PCP Internal Medicine
DX: L71.0 Perioral dermatitis (principal); R07.9 Chest pain, unspecified; Z20.822 Contact with and (suspected) exposure to COVID-19; D64.9 Anemia, unspecified; E78.5 Hyperlipidemia, unspecified; I10 Essential (primary) hypertension; E55.9 Vitamin D deficiency, unspecified; Z90.49 Acquired absence of other specified parts of digestive tract; R94.31 Abnormal electrocardiogram [ECG] [EKG]
CPT/HCPCS: 36415; 71046; 80053; 83690; 84484; 85025; 85610; 85730; 93005; 96374; 96375; 99284; A9270; C9803; J1170; J2060; U0003; U0005

== ENCOUNTER 2022-04-07 12:26 | Emergency (ER) | payer BC, SELFPAY ==
[2022-04-07] VITALS (15 sets, daily range): BP systolic 114–132; BP diastolic 82–95; PULSE 87–106; RESP 11–22; TEMP 36.6; O2SAT 96–100
--- NOTE | ~2022-04-07 | XR_ITS ---
XR chest 2V DATE: 04/07/2022 13:40 INDICATION: Chest pain. History of alcoholism. TECHNIQUE: PA and lateral views COMPARISON: 02/07/2022 PA and lateral views FINDINGS: Normal heart size. No hilar or mediastinal enlargement. No pulmonary infiltrate or consolid ation, pleural effusion or pulmonary vascular congestion or pneumothorax. IMPRESSION: No active cardiopulmonary disease Reviewed, dictated and finalized at location B.
--- NOTE | 2022-04-07 12:29 | ECG_ITS ---
Measurements Intervals [place] Rate: 100 P: 42 CT: 138 QRS: 50 QRSD: 87 T: 66 QT: 363 QTc: 468 Interpretive Statements SINUS TACHYCARDIA BASELINE WANDER- AVF BORDERLINE ECG COMPARED TO ECG 02/07/2022 19:25:32 SINUS TACHYCARDIA NOW PRESENT Electronically Signed On 04-07-2022 13:00:33 CDT by Qasim Coto D.O.
[2022-04-07 12:54] LABS: Basophils Absolute Auto 0.1 K/mm3 (0.0-0.1); Basophils Percent Auto 1.1 % (0.2-1.2); Eosinophils Absolute Auto 0.1 K/mm3 (0-0.3); Eosinophils Percent Auto 1.9 % (0-4.4); Hematocrit 34.2 % (37.0-47.0); Hemoglobin 11.5 g/dL (12.0-15.0); Immature Granulocyte Absolute 0.02 K/mm3 (0.00-0.031); Immature Granulocyte Percent A 0.4 % (0-0.5); Lymphocytes Absolute Auto 1.36 K/mm3 (0.9-3.2); Lymphocytes Percent Auto 28.8 % (18.3-44.2); Mean Corpuscular HGB Conc 33.6 g/dl (32-36); Mean Corpuscular Volume 92.2 fl (80-100); Mean Platelet Volume 11.1 fl (7.4-10.4); Monocytes Absolute Auto 0.5 K/mm3 (0.1-0.6); Monocytes Percent Auto 10.1 % (2.6-8.5); Neutrophils Absolute Auto 2.7 K/mm3 (1.3-6.7); Neutrophils Percent Auto 57.7 % (45.5-73.1); Platelet Count Result 113 k/mm3 (150-375); Red Blood Count 3.71 M/mm3 (4.2-5.4); Red Cell Distribution Width 17.1 % (11.5-14.5); White Blood Count 4.7 K/mm3 (4.5-10.0)
[2022-04-07 13:04] LABS: Alanine Aminotransferase 32 U/L (6-35); Albumin Level 4.8 g/dL (3.5-5.1); Alkaline Phosphatase 38 U/L (38-126); Anion Gap 15 mmol/L (8-16); Aspartate Amino Transferase 52 U/L (14-36); Bilirubin,Total 0.3 mg/dL (0.2-1.3); Blood Urea Nitrogen 12 mg/dL (7-17); Carbon Dioxide 24 mmol/L (22-30); Chloride 105 mmol/L (98-107); Estimated Glomerular Filt Rate > 60; Glucose 102 mg/dL (65-110); Lipase 355 U/L (23-300); Potassium 4.3 mmol/L (3.4-5.0); Sodium 144 mmol/L (137-145)
[2022-04-07 13:08] LABS: INR 1.1; Prothrombin Time 13.3 Seconds (11.1-14.7)
[2022-04-07 13:09] LABS: Partial Thromboplastin Time 25.3 SECONDS (22.3-36.8)
[2022-04-07 13:15] LABS: Troponin I < 0.012 ng/mL (0.000-0.034)
--- NOTE | 2022-04-07 13:17 | PC.NURSE ---
EDP at bedside to assess pt.
--- NOTE | 2022-04-07 13:33 | ED.GENADULT ---
HPI - General Adult General Chief complaint: Chest Pain Stated complaint: chest pain Time Seen by Provider: 04/07/22 13:08 History of Present Illness HPI narrative: This is a 57-year-old female with a history of alcohol use disorder presenting to the ED with multiple complaints. Patient states that for last 2 days she has been feeling weak. she has also been having intermittent chest pain that she says started 2 days ago but has been going on for months. Feels like someone is sitting on her chest, it is nonradiating, 8/10 intensity and comes and goes. His experiences many times in the past was never had it checked out. There are no exacerbating or alleviating factors. She has had multiple episodes of nausea and vomiting. She has also had some diarrhea. It is not associated with diaphoresis or exertion. It is heavily associated with drinking and anxiety. Patient also notes that she has some epigastric abdominal discomfort. patient has no history of pancreatitis. Patient drank 2 bottles of wine this morning. She was found sleeping in the bathroom of our lobby. Patient notes that she has withdrawal when she stops drinking. Related Data Home Medications Medication Instructions Recorded Confirmed meloxicam 15 mg tablet 15 mg PO DAILY 07/29/20 04/06/22 Allergies Allergy/AdvReac Type Severity Reaction Status Date / Time No Known Allergies Allergy Unverified 04/06/22 13:14 Review of Systems Review of Systems: CONSTITUTIONAL: Denies night sweats. EYES: No eye pain ENT: Denies rhinorrhea CARDIOVASCULAR: Denies palpitations RESPIRATORY: Denies hemoptysis GASTROINTESTINAL: Denies hematemesis GENITOURINARY: Denies hematuria. SKIN: Denies rash MUSCULOSKELETAL: Denies myalgia. NEUROLOGIC: Denies weakness. PSYCHIATRIC: Denies delusions PMFSH Past Medical History Medical History Alcoholism Anemia Colonic inertia Generalized anxiety disorder Hyperlipidemia Hypertension Liver lesion Vitamin D deficiency Surgical History Surgical History H/O breast augmentation 08/16/2021 H/O colectomy 2002 Family History Family History Father Family history of thyroid disease Mother Patient's mother is Sibling Asthma Social History Social History Social History: caffeine-daily Smoking status: Never smoker Alcohol intake: former Substance use: never Substance use type: does not use Spiritual care concerns: No Exam Narrative: APPEARANCE: No apparent distress. Patient is intoxicated Head atraumatic. EYES: PERRLA/EOMI, NOSE: Normal no drainage NECK: Supple, Trachea midline RESPIRATORY: CTAB, No increased work of breathing. CARDIOVASCULAR: S1S2 appreciated , normal heart rate, no peripheral edema ABDOMINAL: patient has mild tenderness in the epigastric area. The rest her abdomen is soft nontender with no guarding or rebound. MUSCULOSKELETAl: No obvious deformities NEURO: Alert. Moving 4/4 extremities SKIN:: Warm, dry. Normal color PSYCHIATRIC: Normal affect Course Vital Signs Vital signs: Vital Signs Temperature 97.8 F 04/07/22 12:59 Pulse Rate 102 H 04/07/22 12:59 Respiratory Rate 16 04/07/22 12:59 Blood Pressure 132/83 04/07/22 12:59 Pulse Oximetry 100 04/07/22 12:59 Temperature 97.8 F 04/07/22 12:59 Pulse Rate 97 04/07/22 13:18 Respiratory Rate 16 04/07/22 12:59 Blood Pressure 132/83 04/07/22 12:59 Pulse Oximetry 97 04/07/22 13:20 Oxygen Delivery Room Air 04/07/22 13:20 Medical Decision Making MDM Narrative Medical decision making narrative: this is a 57-year-old female with alcohol use disorder presenting to ED with multiple complaints. Patient is complaining of chest pain although that has now resolved.
--- NOTE | 2022-04-07 13:36 | PC.NURSE ---
Patient off unit to radiology.
[2022-04-07] MEDS: chlordiazePOXIDE (*CRX) 25 MG CAPSULE PO (13:54)
[2022-04-07 14:46] LABS: Ethanol 416 mg/dL (<10)
[2022-04-07] MEDS: HALOPERIDOL LACTATE 5 MG/ML VIAL IM (15:16)
[2022-04-07 15:57] LABS: Troponin I 0.014 ng/mL (0.000-0.034)
== END 2022-04-07 16:20 | disposition home or self-care (01) ==
PROVIDERS: Emergency Medicine; Emergency Provider Emergency Medicine; PCP Internal Medicine
DX: K86.0 Alcohol-induced chronic pancreatitis (principal); F10.20 Alcohol dependence, uncomplicated; Y90.8 Blood alcohol level of 240 mg/100 ml or more; D64.9 Anemia, unspecified; E78.5 Hyperlipidemia, unspecified; I10 Essential (primary) hypertension; E55.9 Vitamin D deficiency, unspecified; F41.1 Generalized anxiety disorder; R00.0 Tachycardia, unspecified
CPT/HCPCS: 36415; 71046; 80053; 80307; 83690; 84484; 85025; 85610; 85730; 93005; 96372; 99284; A9270; J1630

== ENCOUNTER 2022-05-22 08:40 | Outpatient (CLI) | payer BC, SELFPAY ==
[2022-05-22 12:07] LABS: Cholesterol 287 mg/dL (0-200); HDL Direct 96 mg/dL; Triglycerides 99 mg/dL (<150)
[2022-05-22 12:18] LABS: LDL Cholesterol Direct 150 mg/dL
[2022-05-22 12:29] LABS: Vitamin D 25 Hydroxy 44.8 ng/mL
== END 2022-05-22 08:41 | disposition home or self-care (01) ==
LOC: ANHLAB 08:41
PROVIDERS: PCP Internal Medicine; Visit Provider Nurse Practitioner
DX: E78.5 Hyperlipidemia, unspecified (principal); E55.9 Vitamin D deficiency, unspecified
CPT/HCPCS: 36415; 80061; 82306

== ENCOUNTER 2023-10-23 08:42 | Outpatient (CLI) | payer BC, SELFPAY ==
[2023-10-23 18:52] LABS: Basophils Absolute Auto 0.1 K/mm3 (0.0-0.1); Basophils Percent Auto 1.1 % (0.2-1.2); Eosinophils Absolute Auto 0.5 K/mm3 (0-0.3); Eosinophils Percent Auto 7.7 % (0-4.4); Hemoglobin 9.4 g/dL (12.0-15.0); Immature Granulocyte Absolute 0.01 K/mm3 (0.00-0.031); Immature Granulocyte Percent A 0.2 % (0-0.5); Lymphocytes Absolute Auto 1.68 K/mm3 (0.9-3.2); Lymphocytes Percent Auto 26.8 % (18.3-44.2); Mean Corpuscular HGB Conc 30.3 g/dl (32-36); Mean Corpuscular Hemoglobin 25.5 pg (26-34); Mean Corpuscular Volume 84.2 fl (80-100); Mean Platelet Volume 10.5 fl (7.4-10.4); Monocytes Absolute Auto 0.7 K/mm3 (0.1-0.6); Monocytes Percent Auto 11.5 % (2.6-8.5); Neutrophils Absolute Auto 3.3 K/mm3 (1.3-6.7); Neutrophils Percent Auto 52.7 % (45.5-73.1); Platelet Count Result 369 k/mm3 (150-375); Red Blood Count 3.68 M/mm3 (4.2-5.4); Red Cell Distribution Width 16.3 % (11.5-14.5); White Blood Count 6.3 K/mm3 (4.5-10.0)
[2023-10-23 20:06] LABS: Alanine Aminotransferase 14 U/L (6-35); Albumin Level 4.9 g/dL (3.5-5.1); Alkaline Phosphatase 73 U/L (38-126); Anion Gap 13 mmol/L (4-12); Aspartate Amino Transferase 34 U/L (14-36); Bilirubin,Total 0.3 mg/dL (0.2-1.3); Blood Urea Nitrogen 15 mg/dL (7-17); Calcium 10.2 mg/dL (8.4-10.2); Carbon Dioxide 22 mmol/L (22-30); Chloride 108 mmol/L (98-107); Cholesterol 204 mg/dL (0-200); Estimated Glomerular Filt Rate 57; Glucose 73 mg/dL (65-110); HDL Direct 80 mg/dL; Potassium 4.4 mmol/L (3.4-5.0); Sodium 143 mmol/L (137-145); Triglycerides 78 mg/dL (<150)
[2023-10-23 20:17] LABS: LDL Cholesterol Direct 101 mg/dL
[2023-10-23 21:16] LABS: Hemoglobin A1C 5.5 % (<5.7)
[2023-10-23 21:18] LABS: Vitamin D 25 Hydroxy 15.5 ng/mL
== END 2023-10-23 08:43 | disposition home or self-care (01) ==
PROVIDERS: PCP Internal Medicine; Visit Provider Nurse Practitioner
DX: F10.20 Alcohol dependence, uncomplicated (principal); E78.5 Hyperlipidemia, unspecified; D50.9 Iron deficiency anemia, unspecified; E55.9 Vitamin D deficiency, unspecified
CPT/HCPCS: 36415; 80053; 80061; 82306; 82728; 83036; 85025

== ENCOUNTER 2024-02-19 15:08 | Outpatient (CLI) | payer BC, SELFPAY ==
[2024-02-19 15:24] LABS: Basophils Absolute Auto 0.1 K/mm3 (0.0-0.1); Basophils Percent Auto 1.1 % (0.2-1.2); Eosinophils Absolute Auto 0.3 K/mm3 (0-0.3); Eosinophils Percent Auto 3.6 % (0-4.4); Hematocrit 30.6 % (37.0-47.0); Hemoglobin 9.7 g/dL (12.0-15.0); Immature Granulocyte Absolute 0.04 K/mm3 (0.00-0.031); Immature Granulocyte Percent A 0.5 % (0-0.5); Lymphocytes Absolute Auto 2.52 K/mm3 (0.9-3.2); Lymphocytes Percent Auto 28.6 % (18.3-44.2); Mean Corpuscular HGB Conc 31.7 g/dl (32-36); Mean Corpuscular Hemoglobin 24.1 pg (26-34); Mean Corpuscular Volume 76.1 fl (80-100); Monocytes Absolute Auto 0.8 K/mm3 (0.1-0.6); Monocytes Percent Auto 9.4 % (2.6-8.5); Neutrophils Percent Auto 56.8 % (45.5-73.1); Platelet Count Result 390 k/mm3 (150-375); Red Blood Count 4.02 M/mm3 (4.2-5.4); Red Cell Distribution Width 18.3 % (11.5-14.5); White Blood Count 8.8 K/mm3 (4.5-10.0)
[2024-02-19 15:30] LABS: Hypochromasia 1+; Platelet Estimate Adequate (Adequate); Schistocytes None Seen
[2024-02-19 16:36] LABS: Iron 30 ug/dL (37-170)
[2024-02-19 16:44] LABS: Alanine Aminotransferase 11 U/L (6-35); Albumin Level 4.5 g/dL (3.5-5.1); Alkaline Phosphatase 45 U/L (38-126); Anion Gap 12 mmol/L (4-12); Aspartate Amino Transferase 21 U/L (14-36); Bilirubin,Total 0.2 mg/dL (0.2-1.3); Blood Urea Nitrogen 16 mg/dL (7-17); Calcium 9.5 mg/dL (8.4-10.2); Carbon Dioxide 23 mmol/L (22-30); Chloride 102 mmol/L (98-107); Estimated Glomerular Filt Rate 57; Glucose 115 mg/dL (65-110); Sodium 137 mmol/L (137-145)
[2024-02-19 16:46] LABS: Percent Iron Saturation 6 % (20-50)
[2024-02-19 17:12] LABS: Ferritin 8.73 ng/mL (11.1-264)
[2024-02-19 23:14] LABS: Folic Acid 5.4 ng/mL (2.76->20)
== END 2024-02-19 15:09 | disposition home or self-care (01) ==
LOC: ANHLAB 15:10
PROVIDERS: PCP Internal Medicine; Visit Provider Internal Medicine Hematology & Oncology
DX: D64.9 Anemia, unspecified (principal)
CPT/HCPCS: 36415; 80053; 82607; 82728; 82746; 83540; 83550; 85025

== ENCOUNTER 2025-01-14 07:52 | Outpatient (CLI) | payer BC, SELFPAY ==
--- NOTE | ~2025-01-14 | US_ITS ---
EXAMINATION: US carotid duplex BI DATE: 01/14/2025 14:01 CDT INDICATION: Syncope TECHNIQUE: Grayscale, color Doppler, and pulsed Doppler images of the cervical carotid arteries were obtained. The degree of vessel stenosis is placed in one of the following categories: normal, <50%, 50-69%, >=7 0% but less than near-occlusion, near-occlusion, or total occlusion. Note that percent stenosis relative to normal distal artery lumen diameter is indirectly measured fro m velocity measurements as described originally by Guille, et al. Radiology 2003; 229:340-346 and upda jolene by Fabio Quigley et al STROKE 2012;43(3);915-921. COMPARISON: None. FINDINGS: There is mild atherosclerosis of both carotid arteries. Peak systolic velocity (in cm/s) is detailed below RIGHT: Right common carotid artery (CCA): 80 cm/s. Right internal carotid artery (ICA) PSV: 69 cm/s. Right ICA end-diastolic velocity (EDV): 29 cm/s. Right ICA/CCA PSV ratio is 0.9. Right external carotid artery (ECA): 61cm/s. There is antegrade flow in the right vertebral artery LEFT: Left common carotid artery (CCA): 66 cm/s. Left internal carotid artery (ICA) PSV: 65 cm/s. Left ICA end-diastolic velocity (EDV): 31 cm/s. Left ICA/CCA PSV ratio is 1.0. Left external carotid artery (ECA): 61cm/s. There is antegrade flow in the left vertebral artery. IMPRESSION: 1. Less than 50% stenosis in the right internal carotid artery. 2. Less than 50% stenosis in the left internal carotid artery. Reviewed, dictated and finalized at location A.
--- OUTSIDE RECORDS SUMMARY | 2025-01-14 07:55 | XMS_ITS | Clinical Summary ---
Demographics Address [address] [place] [address] [address] [place] [address] Home Phone Email Address m Preferred Language Unknown Marital Status Yazidism Affiliation Unknown Race White Ethnic Group Unknown Author Organization [facility] Address [address] [place] [address] [place] [id number] Care Team Providers Care Human Resources Office Assistant Name Role Phone Unavailable Primary Care Provider Unavailabl e Allergies Active Allergy Reactions Criticality Noted Date Comments Prednisone Nausea and Vomiting,Other (See Comments) Medium 08/08/2016 Shaky and anxiety Shaky and anxiety, elevated BP, migraine Medications pantoprazole (PROTONIX) 40 mg Tablet, Delayed Release (E.C.) Take 40 mg by mouth daily. Active Fenofibrate Nanocrystallized 160 mg Tablet Take by mouth. Active DULoxetine (CYMBALTA) 30 mg Capsule, Delayed Release(E.C.) Take 30 mg by mouth daily. Active Phentermine 15 mg Capsule Take by mouth. Active acamprosate (CAMPRAL) 333 mg Tablet, Delayed Release (E.C.) TAKE 2 TABLETS BY MOUTH THREE TIMES DAILY 12/21/19 22 Active chlordiazePOXIDE (LIBRIUM) 25 mg capsule TAKE 1 CAPSULE BY MOUTH THREE TIMES DAILY NEEDED FOR ANXIETY AND ALCOHOL CRAVING. NOT FOR EVERY DAY USE 01/03/20 22 Active clindamycin phosphate (CLEOCIN) 1 % Lotion APPLY TOPICALLY TO THE AFFECTED AREA TWICE DAILY 10/26/19 22 Active donepeziL (ARICEPT) 5 mg tablet Take 5 mg by mouth. 08/25/19 20 Active doxepin (SINEquan) 10 mg capsule 01/14/20 22 Active famotidine (PEPCID) 20 mg tablet Take 20 mg by mouth 2 times daily. 07/02/20 19 Active fenofibrate (LOFIBRA) 160 mg Tablet Take 160 mg by mouth daily. 11/23/19 22 Active meloxicam (MOBIC) 15 mg tablet Take 15 mg by mouth daily. 01/13/20 Active minocycline (MINOCIN) 50 mg capsule Take 50 mg by mouth daily. 12/10/19 Active naltrexone (DEPADE) 50 mg tablet Take 50 mg by mouth daily. 11/02/19 Active folic acid (FOLVITE) 1 mg tablet 02/18/20 Active hydrocortisone (HYTONE) 2.5 % Cream APPLY TOPICALLY TO THE AFFECTED AREA TWICE DAILY FOR 5 DAYS 02/18/20 Active hydrocortisone (HYTONE) 2.5 % Ointment APPLY TOPICALLY TO THE AFFECTED AREA OF LIPS TWICE DAILY UNTIL GONE. RUB IN WELL 02/10/20 Active hydrOXYzine HCL (ATARAX) 25 mg tablet Take 25 mg by mouth 3 times daily as needed. 03/03/20 Active hydrOXYzine pamoate (VISTARIL) 25 mg capsule 02/18/20 Active LORazepam (ATIVAN) 0.5 mg tablet 02/25/20 Active ondansetron (ZOFRAN) 4 mg Tablet 02/26/20 Active predniSONE (DELTASONE) 10 mg tablet TAKE 1 TABLET BY MOUTH EVERY MORNING FOR 14 DAYS 02/25/20 Active sertraline (ZOLOFT) 50 mg tablet Take 50 mg by mouth daily. 02/25/20 Active sertraline (ZOLOFT) 25 mg tablet Take 25 mg by mouth daily. 02/25/20 Active tacrolimus (PROTOPIC) 0.1 % Ointment 02/25/20 Active triamcinolone acetonide (KENALOG) 0.1 % Ointment APPLY TOPICALLY TO THE AFFECTED AREA TWICE DAILY FOR 5 DAYS 02/18/20 Active Active Problems Problem Noted Date Diagnosed Date Iron deficiency anemia 01/12/2022 Other dietary vitamin B12 deficiency anemia 12/16 S/P colectomy 05/01/2013 Abdominal pain 05/01/2013 Chest pain 05/01/2013 Encounters Date Type Department Care Team Description 01/06/2025 External Device Data [facility] Provider, Abstract 12/09/2024 External Device Data [facility] Provider, Abstract 12/02/2024 External Device Data [facility] Provider, Abstract from Last 3 Months Family History Medical History Relation Name Comments Healthy Father Hypertension Mother Other Mother COPD Relation Name Status Comments Father Alive Mother Alive Social History Tobacco Use Types Packs/Day Years Used Date Smoking Tobacco: Never Tobacco Cessation:Counseling Given: Not Answered Alcohol Use Standard Drinks/Week Comments Not Asked 11.7 (1 standard drink = 0.6 oz pure alcohol) 2 glasses wine daily Comments No Sex and Gender Information Value Date Recorded Sex Assigned at Not on file Legal Sex Female 3:41 AM [employer] Gender Identity Not on file Sexual Orientation Not on file Occupation Industry Job Start Date Job End Date Not on file Not on file Not on file Not on file Last Filed Vital Signs Vital Sign Reading Time Taken Comments Blood Pressure 121/79 02/21/2024 9:43 AM CDT Pulse 106 02/21/2024 9:43 AM CDT Temperature 36.8 C (98.2 F) 02/21/2024 9:43 AM CDT Respiratory Rate 16 02/21/2024 9:43 AM CDT Oxygen Saturation 96% 02/21/2024 9:43 AM CDT Inhaled Oxygen Concentration - - Weight 82.6 kg (182 lb) 02/21/2024 9:43 AM CDT Height 172.7 cm (5' 8) 03/07/2022 3:00 PM CDT Body Mass Index 27.67 03/07/2022 3:00 PM CDT Plan of Treatment Health Maintenance Due Date Last Done Comments Pre-Diabetes and Diabetes Screening 1965 DTAP/TDAP/TD VACCINES (1 - Tdap) 1984 HEPATITIS B VACCINES (1 of 3 - 19+ 3-dose series) 11/1983 HPV/Cotest (21-29) 1986 CERVICAL CANCER SCREENING 1995 HPV/Cotest (30-65) 1995 PAP SMEAR 1995 BREAST CANCER SCREENING 2005 COLORECTAL SCREENING 2010 Colorectal Cancer Screening 2010 FIT-DNA Q 3 years 2010 FIT/FOBT Q 1 year 2010 Flex Sig/CT Colonography Q 5 years 2010 ZOSTER VACCINE (1 of 2) 2015 INFLUENZA VACCINE (#1) 2024 Insurance BC[employer] BLUE ACCESS/TRUE BLUE PPO BC[employer] BLUE ACCESS/TRUE BLUE PPO Advance Directives For more information, please contact: [phone] * Full Code (Latest Code Status on File) Date Activated Date Inactivated Comments 05/01/2013 5:12 PM 05/02/2013 3:24 PM
--- OUTSIDE RECORDS SUMMARY | 2025-01-14 07:55 | XMS_ITS | Clinical Summary ---
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 11/23/2024 3:14 PM CDT [facility] ABS. LYMPHOCYTES 1.85 0.80 - 4.70 x10'3/uL 11/23/2024 3:14 PM CDT [facility] ABS. MONOCYTES 0.76 0.00 - 1.50 x10'3/uL 11/23/2024 3:14 PM CDT [facility] ABS. EOSINOPHILS 0.21 0.00 - 0.40 x10'3/uL 11/23/2024 3:14 PM CDT [facility] ABS. BASOPHILS 0.06 0.00 - 0.20 x10'3/uL 11/23/2024 3:14 PM CDT [facility] ABS. IMMATURE GRANULOCYTES 0.03 0.00 - 0.03 x10'3/uL 11/23/2024 3:14 PM CDT [facility] ABS. NUCLEATED RBC'S 0.00 0.00 - 0.01 x10'3/uL 11/23/2024 3:14 PM CDT [facility] NRBC % 0.0 % 11/23/2024 3:14 PM CDT [facility] ALCOHOL S/P/B ZERO 0 G/DL 11/23/2024 3:28 PM CDT [facility] SODIUM S/P/B 138 136 - 145 MMOL/L 11/23/2024 3:30 PM CDT [facility] POTASSIUM S/P/B 3.7 3.5 - 5.1 MMOL/L 11/23/2024 3:30 PM CDT [facility] CHLORIDE S/P/B 108 97 - 115 MMOL/L 11/23/2024 3:30 PM CDT [facility] CO2 21.5 21.0 - 32.0 MMOL/L 11/23/2024 3:30 PM CDT [facility] GLUCOSE 102 74 - 106 MG/DL 11/23/2024 3:30 PM CDT [facility] BUN 15 7 - 18 MG/DL 11/23/2024 3:30 PM CDT [facility] CREATININE S/P/B 0.73 0.55 - 1.02 MG/DL 11/23/2024 3:30 PM CDT [facility] CALCIUM S/P/B 9.0 8.5 - 10.1 MG/DL 11/23/2024 3:30 PM CDT [facility] ANION GAP 8.5 2.0 - 10.0 MMOL/L 11/23/2024 3:30 PM T [facility] OSMOLALITY (CALC) 287 MOSM/KG 11/23/2024 3:30 PM T [facility] Comment:REFERENCE RANGE NOT ESTABLISHED GFR ESTIMATE >90 >90 ML/MIN/1 .73 M2 11/23/2024 3:30 PM T [facility] GFR NOTES GFR REFERENCES: 3:30 PM T [facility] Comment: THE ESTIMATED GFR IS CALCULATED USING THE 2020 CKD-EPI EQUATION. THE FOLLOWING CATEGORIES FOR GRADING RENAL FUNCTION ARE RECOMMENDED BY THE INTERNATIONAL SOCIETY OF NEPHROLOGY (KDIGO 2012 CLINICAL PRACTICE GUIDELINE). G1,NORMAL OR HIGH: >89 ml/min/1.73 m2 G2,MILDLY DECREASED: 60-89 ml/min/1.73 m2 G3A,MILDLY TO MODERATELY DECREASED: 45-59 ml/min/1.73 m2 G3B,MODERATELY TO SEVERELY DECREASED: 30-44 ml/min/1.73 m2 G4,SEVERELY DECREASED: 15-29 ml/min/1.73 m2 G5,KIDNEY FAILURE: <15 ml/min/1.73 m2 11/23/2024 2:48 PM CDT us Reed Dyson MD LABORATORY Final Result Performing Organization Address [facility] Co de Phone Number [facility] [address] [place] [address], [place] [phone] * TYPE & SCREEN (11/23/2024 2:48 PM CDT) Pathologist [facility] ABO/RH A POSITIVE 11/23/2024 3:51 PM CDT [facility] ANTIBODY SCREEN NEGATIVE 11/23/2024 3:51 PM CDT [facility] SAMPLE EXPIRATION 11/26/2024,2 359 11/23/2024 3:10 PM CDT [facility] 11/23/2024 2:48 PM CDT Jean Scruggs MD BLOOD BANK TEST ORDERABLES Final Result Performing Organization Address [facility] de Phone Number [facility] [address] [place] [address], [place] [phone] * HEPATITIS PANEL,ACUTE (01/27/2018 4:28 AM CDT) HEPATITIS B SURFACE AG NON-REACTI VE NON-REACTI VE 01/27/2018 5:55 AM CDT [facility] HEP B CORE IGM NON-REACTI VE NON-REACTI VE 01/27/2018 6:28 AM CDT [facility] HAV IGM NON-REACTI VE NON-REACTI VE 01/27/2018 6:28 AM CDT [facility] HEPATITIS C AB NON-REACTI VE NON-REACTI VE 01/27/2018 6:28 AM CDT [facility] 01/27/2018 4:28 AM CDT Natalia Hogan SIGNAL INTELLIGENCE ANALYST LABORATORY Final Resul t [facility] [address] [place] [address], from Last 3 Months or Most Recently Relevant to Health Maintenance Insurance [facility] Member Subscriber Plan / Payer ( fective 2017-Present) Name:AMAIRANI SOL Relation to Subscriber:Self Name:Rama Sol Payer ID:Not on file Type:Not on file Address: [address] [employer] Advance Directives * Full Code (Latest Code Status on File) Date Activated Date Inactivated Comments 02/14/2022 4:50 PM 02/17/2022 12:02 PM * Full Code Date Activated Date Inactivated Comments 01/07/2019 7:36 AM 01/08/2019 2:53 PM Care Teams Metal Bonder Relationship Specialty Start Date End Date Sachin Nguyen, [address] [place] [address] PCP - General INTERNAL MEDICINE 06/12/17
--- OUTSIDE RECORDS SUMMARY | 2025-01-14 07:56 | XMS_ITS | Patient Health Record ---
Author Organization [employer] Address [address] [facility] [address] [place] [address] Care Team Providers Care Boat Builder And Repairer Name Role Phone Sachin Nguyen DO Primary Care Provider Dane elkins Juan Barrios Unavailable [phone] Reason For Referral No Information Medications Medication SIG (Take, Route, Frequency, Duration) Notes Start Date End Date Status Fenofibrate Active Cymbalta Active Desipramine HCl 10 MG 1 tablet Orally On ce a day for 30 day(s) Unknown Lopreeza Active Omeprazole Unknown Ibuprofen Unknown Lopreeza Active Dexilant 60 MG 1 capsule Orally Onc e a day for 30 day(s) Unknown Protonix 40 MG 1 tablet Orally Once a day Active Esomeprazole Magnesium 40 MG 1 capsule Orally Once a day for 30 day(s) 12/04/2016 Unknown Social History Tobacco Use: Social History Observation Description Date Details (start date - stop date) Never Smoker NA - NA Tobacco Use/Smoking Question Answer Notes Are you a nonsmoker Problems Problem Type SNOMED Code ICD Code Onset Dates Problem Status W/U Status Risk Notes Problem 38386406 Slow transit constipation (K59.01) Active confirmed Problem 084029033 Right upper quadrant pain (R10.11) Active confirmed Problem 24996868 Epigastric pain (R10.13) Active confirmed Problem 897443908 Fatty liver (K76.0) Active confirmed Problem 129125789 Colon cancer screening (Z12.11) Active confirmed Problem 78323957 Nausea and vomiting (R11.2) Active confirmed Problem 440765262 Hepatic lesion (K76.9) Active confirmed Plan Of Treatment Pending Test Test Name Order Date Flexible Sigmoidoscopy 11/27/2016 Insurance Providers Payer Name Payer Address Payer Phone Subscriber Number Group Number Insured Name Patient Relationship to Insured Coverage Start Date Coverage End Date Blue Access PPO E2 [address] [place] [address] [id number] Rama Sol Self - patient is the insured Medical (General) History Medical History History ICD Code Ulcers GERD Fatty liver disease Bacterial overgrowth 2014- negative Surgical History Surgery Date(Month/Year) Flexible sigmoidoscopy 11/2016 Upper GI Endoscopy 12/2014 Colectomy 2003 Sinus surgery
--- OUTSIDE RECORDS SUMMARY | 2025-01-14 07:56 | XMS_ITS | Encounter Summary ---
Author Organization [facility] Address 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 Gender Identity Not on file Sexual Orientation Not on file documented as of this encounter Plan of Treatment Not on file documented as of this encounter Procedures Procedure Name Priority Date/Time Associated Diagnosis Comments US ABDOMEN LIMITED Timed Study 08/10/2008 8: 43 AM BUILDING RENTAL SUPERINTENDENT documented in this encounter Results * US ABDOMEN LIMITED (08/10/2008 8:43 AM BUILDING RENTAL SUPERINTENDENT) Anatomical Region Laterality Modality Abdomen Other 08/10/2008 8:43 AM BUILDING RENTAL SUPERINTENDENT Narrative 08/10/2008 3:10 PM BUILDING RENTAL SUPERINTENDENT [facility] [address] [place], [place] [address] Admit Date: 08/10/2008 JORDEN SOL Sex: F Admit Prov: JUAN ARAMBULA Date: 1965 Primary Care Prov: PCP , NONE CMRN: [id number] Room: [facility] SSN: [id number] IMAGING SERVICES Ordering Prov: N/A Accession Number: [id number] Interpretation ULTRASOUND ABDOMEN LIMITED, 08/10/2008 Clinical History: Midepigastric pain and nausea. Sagittal and transverse real-time examination reveals the visualized portions of the pancreas to appear normal. The gallbladder appears sonographically normal without evidence for gallstones or gallbladder wall thickening. The common bile duct is 4 mm in diameter and is not dilated. Occluded images of the right kidney were normal. Within the periphery of the right lobe of the liver adjacent to the diaphragm, there is an ill-defined hypoechoic area measuring about 2.1 x 1.9 cm in size. Hemangiomas can occasionally have this appearance. However, the patient's recent CT with contrast of 07/02/2008 was carefully evaluated in the region of the suspected ultrasound abnormality and no CT abnormality could be discerned. The significance of the questioned ultrasound abnormality is therefore uncertain. The liver otherwise appears unremarkable. Included images of the right kidney fail to reveal hydronephrosis. There is normal color-flow signal in the portal and hepatic veins. Conclusion: Normal gallbladder ultrasound. Ill-defined 2 cm lucency at the periphery of the liver, not reproduced on recent CT of 07/02/08, and therefore of questionable significance. Consider MRI if further investigation is thought to be indicated. . Dictated by: CHYNA ALMEIDA 08/10/2008 09:30 Electronically signed by: CHYNA ALMEIDA 08/10/2008 15:09 Transcribed: 08/10/2008 13:10 SMM Procedure Note Provider, Historical - 08/10/2008 [facility] [address] [place], [place] [address] Admit Date: 08/10/2008 JORDEN SOL Sex: F Admit Prov: JUAN ARAMBULA Date: 1965 Primary Care Prov: PCP , NONE CMRN: [id number] Room: [facility] SSN: [id number] IMAGING SERVICES Ordering Prov: N/A Interpretation ULTRASOUND ABDOMEN LIMITED, 08/10/2008 Clinical History: Midepigastric pain and nausea. Sagittal and transverse real-time examination reveals thevisualized portions of the pancreas to appear normal. The gallbladder appears sonographically normal without evidence for gallstones or gallbladderwall thickening. The common bile duct is 4 mm in diameter and is notdilated. Occluded images of the right kidney were normal. Within the periphery of the right lobe of the liver adjacent to the diaphragm, there is an ill-defined hypoechoic area measuring about2.1 x 1.9 cm in size. Hemangiomas can occasionally have this appearance.However, the patient's recent CT with contrast of 07/02/2008 was carefullyevaluated in the region of the suspected ultrasound abnormality and no CTabnormality could be discerned. The significance of the questioned ultrasound abnormality is therefore uncertain. The liver otherwise appears unremarkable. Included images of the right kidney fail to reveal hydronephrosis. There is normal color-flow signal in the portal andhepatic veins. Conclusion: Normal gallbladder ultrasound. Ill-defined 2 cm lucency at the periphery of the liver, notreproduced on recent CT of 07/02/08, and therefore of questionable significance. Consider MRI if further investigation is thought to be indicated. . Dictated by: CHYNA ALMEIDA 08/10/2008 09:30 Electronically signed by: CHYNA ALMEIDA 08/10/2008 15:09 Transcribed: 08/10/2008 13:10 [facility] us Juan Arambula MD ORDERABLES Final Result documented in this encounter Visit Diagnoses Diagnosis Nausea with vomiting documented in this encounter Care Teams Chaperone Relationship Specialty Start Date End Date Sachin Nguyen DO PCP - General Internal Medicine 05/01/13 documented as of this encounter
--- OUTSIDE RECORDS SUMMARY | 2025-01-14 07:56 | XMS_ITS | Encounter Summary ---
Author Organization [facility] Address [address] [place] [address] Care Team Providers Care Paratransit Operator Name Role Phone Sachin Nguyen DO Primary Care Provider Unavailable Encounter Details Date Type Department Care Team (Latest Contact Info) Description 07/30/2008 Outpatient Historical [facility], [address] Juan Arambula MD [address] [place] [address] Other Specified Gastritis without Mention of Hemorrhage Social History Tobacco Use Types Packs/Day Years Used Date Smoking Tobacco: Never Assessed Comments Unknown Sex and Gender Information Value Date Recorded Sex Assigned at Not on file Legal Sex Female 3:41 AM INSTALLATION COORDINATOR Gender Identity Not on file Sexual Orientation Not on file documented as of this encounter Plan of Treatment Not on file documented as of this encounter Procedures Procedure Name Priority Date/Time Associated Diagnosis Comments PATHOLOGY Routine 07/30/2008 3:35 PM INSTALLATION COORDINATOR documented in this encounter Results * PATHOLOGY (07/30/2008 3:35 PM INSTALLATION COORDINATOR) FINAL REPORT [address] [address] Patient: JORDEN SOL : 1965 Procedure Date: 07/30/2008 Accession Date: 07/30/2008 Case No: [id number] Ordering Dr: JUAN ARAMBULA Case types AW, BW, FW, NW and SH are performed by [facility], [place], [place] SURGICAL PATHOLOGY & NON-GYNECOLOGIC CYTOPATHOLOGY REPORT DIAGNOSIS STOMACH, ANTRUM, ENDOSCOPIC BIOPSY: - CHRONIC GASTRITIS, MILD. Specimen Description: Antrum. Operative Procedure: EGD. Patient Information/Histor y/Diagnosis: Abdominal pain, rule out H. pylori infection. Gross: Received in a single container and labeled Jorden Sol, antrum is a 0.2 x 0.1 x 0.1-cm egan piece of tissue. The entire specimen is submitted in cassette A1. LWL/PJS 07.31.2008 06:42 am Microscopic: Received are slides labeled [id number] Jorden Sol. Sections of antrum sample antral mucosa. There are mild, reactive epithelial changes. Surface epithelium is intact. There are patchy, mild subepithelial infiltrates of chronic inflammatory cells. Substantial acute inflammatory changes are absent. Organisms characteristics of Helicobacter pylori are not identified on H&E-stained sections. PJC/SREE 07.31.2008 11:39 am Staging Form: No. ELECTRONIC SIGNATURE FOR LISSY GALLO M.D.- 07/31/08 12:18 pm INTERFACE SYSTEM 07/30/2008 3:35 PM INSTALLATION COORDINATOR us Juan Arambula MD PATHOLOGY/CYTOLOGY ORDERABLE S Final Result INTERFACE SYSTEM Refer to clinic/hospital department documented in this encounter Visit Diagnoses Diagnosis Other specified gastritis without mention of hemorrhage documented in this encounter Care Teams Paratransit Operator Relationship Specialty Start Date End Date Sachin Nguyen DO PCP - General Internal Medicine 05/01/13 documented as of this encounter
--- OUTSIDE RECORDS SUMMARY | 2025-01-14 07:56 | XMS_ITS | Encounter Summary ---
Author Organization [facility] Address [address] [place] [address] Care Team Providers Care Facilities Plant Engineer Name Role Phone Neida Nguyen DO Primary Care Provider Unavailable Encounter Details Date Type Department Care Team (Late st Contact Info) Description 07/02/2008 Outpatient Historical [facility] [place], Authorized P NO ADDRESS ON FILE Leoncio Pham MD [address] [place] [address] Farrah Corbin [place] [id number] [address] Unspecified Intestinal Obstruction (CMS/HCC) Social History Tobacco Use Types Packs/Day Years Used Date Smoking Tobacco: Never Assessed Comments Unknown Sex and Gender Information Value Date Recorded Sex Assigned at Not on file Legal Sex Female 3:41 AM TANK CALIBRATOR Gender Identity Not on file Sexual Orientation Not on file documented as of this encounter Plan of Treatment Not on file documented as of this encounter Procedures Procedure Name Priority Date/Time Associated Diagnosis Comments CBC WITH DIFFERENTIAL Routine 07/04/2008 6:45 AM TANK CALIBRATOR BASIC METABOLIC PANEL Routine 07/04/2008 6:45 AM TANK CALIBRATOR XR SMALL BOWEL Routine 07/03/2008 8:05 AM TANK CALIBRATOR CBC WITH DIFFERENTIAL Routine 07/03/2008 4:55 AM TANK CALIBRATOR C-REACTIVE PROTEIN Timed Study 07/03/2008 4: 55 AM TANK CALIBRATOR BASIC METABOLIC PANEL Routine 07/03/2008 4:[address] ABDOMEN PELVIS W CONTRAST Stat 07/02/2008 8:11 PM TANK CALIBRATOR URINALYSIS WITH REFLEX CULTURE Stat 07/02/2008 5:56 PM TANK CALIBRATOR URINALYSIS W/REFLEX MICROSCOPIC Stat 07/02/2008 5:56 PM TANK CALIBRATOR CBC WITH DIFFERENTIAL Stat 07/02/2008 5:40 PM TANK CALIBRATOR C-REACTIVE PROTEIN Stat 07/02/2008 5: 40 PM TANK CALIBRATOR LIPASE Stat 07/02/2008 5:40 PM TANK CALIBRATOR AMYLASE Stat 07/02/2008 5:40 PM TANK CALIBRATOR COMPREHENSIVE METABOLIC PANEL Stat 07/02/2008 5:40 PM TANK CALIBRATOR documented in this encounter Results * (ABNORMAL) BASIC METABOLIC PANEL (07/04/2008 6:45 AM TANK CALIBRATOR) CALCIUM 9.1 8.6 - 10.2 mg/dL [facility] CO2 26 22 - 30 mmol/L [facility] POTASSIUM 4.2 3.5 - 4.9 mmol/L [facility] GLUCOSE 106(H) 65 - 99 mg/dL [facility] BUN 3(L) 6 - 20 mg/dL [facility] CHLORIDE 102 96 - 108 mmol/L [facility] CREATININE 0.63 0.51 - 0.95 mg/dL [facility] SODIUM 136 135 - 145 mmol/L [facility] GFR, >60 >=60 mL/min/1. 7 sq meter [facility] GFR >60 >=60 mL/min/1. 7 sq meter [facility] Comment: ansiModification of Diet in Renal Disease (MDRD) study formula. Estimated GFR rate interpretative information for both Americans and non- Americans is available on the [facility] Intranet at: [email or web address] Select: Lab Policies and Procedures Select: Reference Ranges - GFR Blood specimen (specimen) 07/04/2008 6:45 AM TANK CALIBRATOR 07/04/2008 7:34 AM TANK CALIBRATOR us Leoncio Pham MD CHEMISTRY ORDERABLES Edited INTERFACE SYSTEM Refer to clinic/hospital department [facility] CLIA# [id number] [address] [place] [address] * (ABNORMAL) CBC WITH DIFFERENTIAL (07/04/2008 6:45 AM TANK CALIBRATOR) HEMATOCRIT 36.5 35.5 - 44.0 % [facility] RDW-STDEV 43.4 37.1 - 48.7 fL [facility] RBC 3.80(L) 3.90 - 4.90 M/uL [facility] MCHC 33.4 31.5 - 35.5 % [facility] MCV 96.1 82.0 - 99.0 fL [facility] PLATELETS 242 140 - 350 K/uL [facility] HEMOGLOBIN 12.2 11.8 - 14.8 g/dL [facility] RDW 12.6 11.5 - 14.5 % [facility] WBC 6.7 4.0 - 9.8 K/uL [facility] MCH 32.1 27.2 - 32.6 pg [facility] MPV 10.7 9.3 - 12.4 fL [facility] BASOPHILS 0 0 - 2 % [facility] BASOPHILS ABSOLUTE 0.01 0.00 - 0.20 K/uL [facility] MONOCYTES 12 3 - 13 % [facility] MONOCYTE ABSOLUTE 0.83 0.10 - 1.30 K/uL [facility] NEUTROPHILS 63 45 - 70 % [facility] NEUTROPHIL ABSOLUTE 4.25 1.90 - 7.00 K/uL [facility] EOSINOPHILS 5 0 - 7 % [facility] EOSINOPHIL ABSOLUTE 0.34 0.00 - 0.70 K/uL [facility] LYMPHOCYTES 19 16 - 45 % [facility] LYMPHOCYTE ABSOLUTE 1.30 0.70 - 4.50 K/uL [facility] Blood specimen (specimen) 07/04/2008 6:45 AM TANK CALIBRATOR 07/04/2008 7:34 AM TANK CALIBRATOR us Leoncio Pham MD HEMATOLOGY ORDERABLES Edited INTERFACE SYSTEM Refer to clinic/hospital department [facility] CLIA# [id number] [address] [facility] [place] [address] * XR SMALL BOWEL (07/03/2008 8:05 AM TANK CALIBRATOR) Anatomical Region Laterality Modality Abdomen Other 07/03/2008 8:05 AM TANK CALIBRATOR Narrative 07/03/2008 11:16 AM TANK CALIBRATOR [facility] [address] [place], [place] [address] Admit Date: 07/02/2008 JORDEN SOL Sex: F Admit Prov: LEONCIO PHAM Date: 1965 Primary Care Prov: PCP , NONE CMRN: [id number] Room: [address] [place] [address] SSN: [id number] IMAGING SERVICES Ordering Prov: N/A Accession Number: [id number] Interpretation Small bowel follow-through Jul 03, 2008 10:46:24 AM History: 43-year-old female with history of colonic resection with chronic abdominal pain. CT from the previous day suggested a small bowel obstruction. A steel inspector radiograph reveals oral contrast in the rectum and distal small bowel. There is contrast in the urinary bladder. This is presumably from previous CT. A nasogastric tube is present in the stomach. There is mild dilatation of the mid small bowel loops, but contrast does reach the distal small bowel within 90 minutes and reaches the rectum within 2 hours. There is mild gaseous distention of the rectum. No obvious filling defects are seen, aside from the expected stool. There is change from near-complete colectomy with only the distal rectosigmoid remaining. The surgical anastomosis is grossly unremarkable. Impression: Contrast reaches the rectum within 2 hours suggesting absence of high-grade bowel obstruction. . Dictated by: NEIDA NJ 07/03/2008 11:10 Electronically signed by: NEIDA NJ 07/03/2008 11:14 Procedure Note Neida Nj - 07/03/2008 [id number] [place], [place] [address] Admit Date: 07/02/2008 JORDEN SOL Sex: F Admit Prov: LEONCIO PHAM Date: 1965 Primary Care Prov: PCP , NONE CMRN: [id number] Room: [address] [place] [address] SSN: [id number] IMAGING SERVICES Ordering Prov: N/A Interpretation Small bowel follow-through Jul 03, 2008 10:46:24 AM History: 43-year-old female with history of colonic resection withchronic abdominal pain. CT from the previous day suggested a small bowel obstruction. A steel inspector radiograph reveals oral contrast in the rectum and distalsmall bowel. There is contrast in the urinary bladder. This is presumablyfrom previous CT. A nasogastric tube is present in the stomach. There ismild dilatation of the mid small bowel loops, but contrast does reach thedistal small bowel within 90 minutes and reaches the rectum within 2 hours.There is mild gaseous distention of the rectum. No obvious filling defectsare seen, aside from the expected stool. There is change fromnear-complete colectomy with only the distal rectosigmoid remaining. The surgical anastomosis is grossly unremarkable. Impression: Contrast reaches the rectum within 2 hours suggesting absence ofhigh-grade bowel obstruction. . Dictated by: NEIDA NJ 07/03/2008 11:10 Electronically signed by: NEIDA NJ 07/03/2008 11:14 us Leoncio Pham MD DIAGNOSTIC IMAGING ORDERABLES Final Result * C-REACTIVE PROTEIN (07/03/2008 4:55 AM TANK CALIBRATOR) Pathologist [facility] CRP <0.2 0.0 - 0.8 mg/dL [facility] Blood specimen (specimen) 07/03/2008 4:55 AM TANK CALIBRATOR 07/03/2008 5:48 AM TANK CALIBRATOR us Authorized P Er CHEMISTRY ORDERABLES Final Resul t INTERFACE SYSTEM Refer to clinic/hospital department [facility] CLIA# [id number] [address] [place] [address] * (ABNORMAL) BASIC METABOLIC PANEL (07/03/2008 4:55 AM TANK CALIBRATOR) Pathologist [facility] CALCIUM 8.9 8.6 - 10.2 mg/dL [facility] CO2 25 22 - 30 mmol/L [facility] CREATININE 0.64 0.51 - 0.95 mg/dL [facility] POTASSIUM 4.0 3.5 - 4.9 mmol/L [facility] BUN 7 6 - 20 mg/dL [facility] CHLORIDE 102 96 - 108 mmol/L [facility] GLUCOSE 148(H) 65 - 99 mg/dL [facility] SODIUM 137 135 - 145 mmol/L [facility] GFR, >60 >=60 mL/min/1. 7 sq meter [facility] GFR >60 >=60 mL/min/1. 7 sq meter [facility] Comment: Modification of Diet in Renal Disease (MDRD) study formula. Estimated GFR rate interpretative information for both Americans and non- Americans is available on the [facility] Intranet at: [email or web address] Select: Lab Policies and Procedures Select: Reference Ranges - GFR Blood specimen (specimen) 07/03/2008 4:55 AM TANK CALIBRATOR 07/03/2008 5:48 AM TANK CALIBRATOR us Authorized P Er CHEMISTRY ORDERABLES Edited INTERFACE SYSTEM Refer to clinic/hospital department [facility] CLIA# [id number] [address] [place] [address] * (ABNORMAL) CBC WITH DIFFERENTIAL (07/03/2008 4:55 AM TANK CALIBRATOR) MCV 93.8 82.0 - 99.0 fL [facility] PLATELETS 268 140 - 350 K/uL [facility] HEMOGLOBIN 12.6 11.8 - 14.8 g/dL [facility] RDW 12.4 11.5 - 14.5 % [facility] WBC 10.0(H) 4.0 - 9.8 K/uL [facility] MCH 32.3 27.2 - 32.6 pg [facility] MPV 11.0 9.3 - 12.4 fL [facility] HEMATOCRIT 36.6 35.5 - 44.0 % [facility] RDW-STDEV 42.3 37.1 - 48.7 fL [facility] RBC 3.90 3.90 - 4.90 M/uL [facility] MCHC 34.4 31.5 - 35.5 % [facility] EOSINOPHILS 2 0 - 7 % [facility] EOSINOPHIL ABSOLUTE 0.22 0.00 - 0.70 K/uL [facility] LYMPHOCYTES 18 16 - 45 % [facility] LYMPHOCYTE ABSOLUTE 1.79 0.70 - 4.50 K/uL [facility] BASOPHILS 0 0 - 2 % [facility] BASOPHILS ABSOLUTE 0.03 0.00 - 0.20 K/uL [facility] MONOCYTES 8 3 - 13 % [facility] MONOCYTE ABSOLUTE 0.83 0.10 - 1.30 K/uL [facility] NEUTROPHILS 71(H) 45 - 70 % [facility] NEUTROPHIL ABSOLUTE 7.15(H) 1.90 - 7.00 K/uL [facility] Blood specimen (specimen) 07/03/2008 4:55 AM TANK CALIBRATOR 07/03/2008 5:48 AM TANK CALIBRATOR us Authorized P Er HEMATOLOGY ORDERABLES Edited INTERFACE SYSTEM Refer to clinic/hospital department [facility] CLIA# [id number] [address] [place] [address] * CT ABDOMEN PELVIS W CONTRAST (07/02/2008 8:11 PM TANK CALIBRATOR) Anatomical Region Laterality Modality Abdomen Other 07/02/2008 8:11 PM TANK CALIBRATOR Narrative 07/03/2008 1:34 AM TANK CALIBRATOR [facility] [address] [place], [place] [address] Admit Date: 07/02/2008 JORDEN SOL Sex: F Admit Prov: LEONCIO PHAM Date: 1965 Primary Care Prov: PCP , NONE CMRN: [id number] Room: [address] [place] [address] SSN: [id number] IMAGING SERVICES Ordering Prov: N/A Accession Number: [id number] Interpretation CT ABDOMEN AND PELVIS WITH INTRAVENOUS CONTRAST 07/02/2008 History: Abdominal pain. Technique: Helical images through the abdomen and pelvis following oral and intravenous contrast administration. Findings: Bilateral breast prostheses are present. The lung bases, liver, gallbladder, spleen, pancreas, kidneys and adrenal glands are normal. There is no hydronephrosis, hydroureter or free intraperitoneal air. There is a trace amount of free pelvic fluid. Moderately distended loops of proximal jejunum are present. Transition point is noted in the left midabdomen. Distal loops of small bowel are not distended. Surgical bowel anastomosis is noted at the sigmoid colon. The patient appears status post subtotal colectomy. There is no abnormal mass or fluid collection. Impression: 1. High grade mid small bowel obstruction with transition point, likely secondary to adhesions. 2. No significant abnormality otherwise. . Dictated by: WILLIAM KATZ 07/02/2008 20:34 Electronically signed by: WILLIAM KATZ 07/03/2008 01:32 Transcribed: 07/02/2008 20:45 SJ Procedure Note William Katz MD - 07/03/2008 [facility] [address] [place], [place] [address] Admit Date: 07/02/2008 JORDEN SOL Sex: F Admit Prov: LEONCIO PHAM Date: 1965 Primary Care Prov: PCP , NONE CMRN: [id number] Room: [address] [place] [address] SSN: [id number] IMAGING SERVICES Ordering Prov: N/A Interpretation CT ABDOMEN AND PELVIS WITH INTRAVENOUS CONTRAST 07/02/2008 History: Abdominal pain. Technique: Helical images through the abdomen and pelvis followingoral and intravenous contrast administration. Findings: Bilateral breast prostheses are present. The lung bases,liver, gallbladder, spleen, pancreas, kidneys and adrenal glands are normal.There is no hydronephrosis, hydroureter or free intraperitoneal air. Thereis a trace amount of free pelvic fluid. Moderately distended loops ofproximal jejunum are present. Transition point is noted in the leftmidabdomen. Distal loops of small bowel are not distended. Surgical bowelanastomosis is noted at the sigmoid colon. The patient appears status postsubtotal colectomy. There is no abnormal mass or fluid collection. Impression: 1. High grade mid small bowel obstruction with transition point,likely secondary to adhesions. 2. No significant abnormality otherwise. . Dictated by: WILLIAM KATZ 07/02/2008 20:34 Electronically signed by: WILLIAM KATZ 07/03/2008 01:32 Transcribed: 07/02/2008 20:45 SJ O[address] Young MD CT ORDERABLES Final Result * (ABNORMAL) URINALYSIS (07/02/2008 5:56 PM TANK CALIBRATOR) PH UA 5.0 5.0 - 8.0 [facility] KETONES UA Trace(A) Negative [facility] RBC UA <1 0 - 4 /HPF [facility] CLARITY UA Clear Clear [facility] PROTEIN UA Negative Negative [facility] BILIRUBIN UA Negative Negative [facility] LEUKOCYTE ESTERASE UA Negative Negative [facility] BACTERIA UA 1+(A) None Seen /HPF [facility] SPECIFIC GRAVITY UA 1.005 1.001 - 1.035 [facility] BLOOD UA Trace(A) Negative [facility] GLUCOSE UA Negative Negative [facility] COLOR UA Pale Yellow [facility] NITRITE UA Negative Negative [facility] UROBILINOGEN UA <1 <=1 mg/dL [facility] EPITHELIAL CELLS, URINE 2-5 /HPF [facility] 07/02/2008 5:56 PM TANK CALIBRATOR 07/02/2008 7:23 PM TANK CALIBRATOR Omid Young MD URINE ORDERABLES Final Resul t INTERFACE SYSTEM Refer to clinic/hospital department [facility] CLIA# [id number] [address] [place] [address] * URINALYSIS WITH REFLEX CULTURE (07/02/2008 5:56 PM TANK CALIBRATOR) URINE CULTURE ORDER Not indicated [facility] Comment: Criteria for a reflex culture include one or more of the following: Abnormal nitrite, leukocyte esterase, WBCs or RBCs. Lack of qualifying criteria does not exclude the possiblity of a urinary tract infection. Dilute urine, drug interference, etc. may decrease the sensitivity of the criteria analytes. Urine specimen (specimen) 07/02/2008 5:56 PM TANK CALIBRATOR 07/02/2008 7:23 PM TANK CALIBRATOR Omid Young MD URINE ORDERABLES Final Resul t Performing Organization Address [facility] Phone Number INTERFACE SYSTEM Refer to clinic/hospital department [facility] CLIA# [id number] [address] [place] [address] * LIPASE (07/02/2008 5:40 PM TANK CALIBRATOR) LIPASE 47 13 - 60 U/L [facility] Blood specimen (specimen) 07/02/2008 5:40 PM TANK CALIBRATOR 07/02/2008 6:01 PM TANK CALIBRATOR Omid Young MD CHEMISTRY ORDERABLES Final R esult Performing Organization Address [facility] Phone Number INTERFACE SYSTEM Refer to clinic/hospital department [facility] CLIA# [id number] [address] [place] [address] * C-REACTIVE PROTEIN (07/02/2008 5:40 PM TANK CALIBRATOR) CRP <0.2 0.0 - 0.8 mg/dL [facility] Blood specimen (specimen) 07/02/2008 5:40 PM TANK CALIBRATOR 07/02/2008 6:01 PM TANK CALIBRATOR Omid Young MD CHEMISTRY ORDERABLES Final R esult INTERFACE SYSTEM Refer to clinic/hospital department [facility] CLIA# [id number] [address] [place] [address] * (ABNORMAL) COMPREHENSIVE METABOLIC PANEL (07/02/2008 5:40 PM TANK CALIBRATOR) POTASSIUM 3.4(L) 3.5 - 4.9 mmol/L [facility] TOTAL PROTEIN 7.3 6.3 - 8.6 g/dL [facility] GLUCOSE 81 65 - 99 mg/dL [facility] AST 21 12 - 32 U/L [facility] BUN 10 6 - 20 mg/dL [facility] CALCIUM 9.7 8.6 - 10.2 mg/dL [facility] ALBUMIN 4.5 3.4 - 4.8 g/dL [facility] CHLORIDE 100 96 - 108 mmol/L [facility] CREATININE 0.66 0.51 - 0.95 mg/dL [facility] ALT 17 0 - 31 U/L [facility] SODIUM 136 135 - 145 mmol/L [facility] ALKALINE PHOSPHATASE 59 35 - 104 U/L [facility] CO2 23 22 - 30 mmol/L [facility] BILIRUBIN TOTAL 0.3 0.2 - 1.0 mg/dL [facility] GFR, >60 >=60 mL/min/1. 7 sq meter [facility] GFR >60 >=60 mL/min/1. 7 sq meter [facility] Comment: Modification of Diet in Renal Disease (MDRD) study formula. Estimated GFR rate interpretative information for both Americans and non- Americans is available on the [facility] Intranet at: [email or web address] Select: Lab Policies and Procedures Select: Reference Ranges - GFR Blood specimen (specimen) 07/02/2008 5:40 PM TANK CALIBRATOR 07/02/2008 6:01 PM TANK CALIBRATOR Omid Young MD CHEMISTRY ORDERABLES Edited INTERFACE SYSTEM Refer to clinic/hospital department [facility] CLIA# [id number] [address] [place] [address] * (ABNORMAL) CBC WITH DIFFERENTIAL (07/02/2008 5:40 PM TANK CALIBRATOR) RBC 3.75(L) 3.90 - 4.90 M/uL [facility] MCHC 35.0 31.5 - 35.5 % [facility] MCV 92.3 82.0 - 99.0 fL [facility] PLATELETS 277 140 - 350 K/uL [facility] HEMOGLOBIN 12.1 11.8 - 14.8 g/dL [facility] RDW 12.2 11.5 - 14.5 % [facility] WBC 7.7 4.0 - 9.8 K/uL [facility] MCH 32.3 27.2 - 32.6 pg [facility] MPV 10.8 9.3 - 12.4 fL [facility] HEMATOCRIT 34.6(L) 35.5 - 44.0 % [facility] RDW-STDEV 41.4 37.1 - 48.7 fL [facility] MONOCYTE ABSOLUTE 0.93 0.10 - 1.30 K/uL [facility] NEUTROPHILS 56 45 - 70 % [facility] NEUTROPHIL ABSOLUTE 4.32 1.90 - 7.00 K/uL [facility] EOSINOPHILS 5 0 - 7 % [facility] EOSINOPHIL ABSOLUTE 0.36 0.00 - 0.70 K/uL [facility] LYMPHOCYTES 27 16 - 45 % [facility] LYMPHOCYTE ABSOLUTE 2.08 0.70 - 4.50 K/uL [facility] BASOPHILS 1 0 - 2 % [facility] BASOPHILS ABSOLUTE 0.04 0.00 - 0.20 K/uL [facility] MONOCYTES 12 3 - 13 % [facility] Blood specimen (specimen) 07/02/2008 5:40 PM TANK CALIBRATOR 07/02/2008 6:01 PM TANK CALIBRATOR Omid Young MD HEMATOLOGY ORDERABLES Edited Performing Organization Address [facility] de Phone Number INTERFACE SYSTEM Refer to clinic/hospital department [facility] CLIA# [id number] [address] [place] [address] * AMYLASE (07/02/2008 5:40 PM TANK CALIBRATOR) AMYLASE 77 28 - 100 U/L [facility] Blood specimen (specimen) 07/02/2008 5:40 PM TANK CALIBRATOR 07/02/2008 6:01 PM TANK CALIBRATOR Omid Young MD CHEMISTRY ORDERABLES Final R esult Performing Organization Address [facility] de Phone Number INTERFACE SYSTEM Refer to clinic/hospital department [facility] CLIA# [id number] [address] [place] [address] documented in this encounter Visit Diagnoses Diagnosis Unspecified intestinal obstruction (CMS/HCC) Unspecified intestinal obstruction documented in this encounter Care Teams Facilities Plant Engineer Relationship Specialty Start Date End Date Neida Nguyen DO PCP - General Internal Medicine 05/01/13 documented as of this encounter
--- OUTSIDE RECORDS SUMMARY | 2025-01-14 07:56 | XMS_ITS | Clinical Summary ---
Author Organization [facility] Address [address] [place] [address] Care Team Providers Care Engineer Conductor Name Role Phone Sachin Nguyen DO Primary Care Provider [phone] Allergies No known active allergies Medications fenofibrate (TRIGLIDE) 160 mg tablet Take 1 tablet (160 mg total) by mouth every morning 3 Active amitriptyline (ELAVIL) 50 mg tablet Take 2 tablets (100 mg total) by mouth nightly 3 Active hydrOXYzine (ATARAX) 50 mg tablet TAKE 2 TABLETS BY MOUTH DAILY NEEDED FOR ANXIETY 4 Active pregabalin (LYRICA) 100 mg capsule Take 1 capsule (100 mg total) by mouth 2 (two) times a day Active acetaminophen (TYLENOL) 325 mg tabletIndications: Fever,Pain Take 2 tablets (650 mg total) by mouth every 4 (four) hours as needed for pain, headaches or fever 4 Active amLODIPine (NORVASC) 5 mg tabletIndications: hypertension Take 1 tablet (5 mg total) by mouth daily 4 025 Active atorvastatin (LIPITOR) 20 mg tablet Take 1 tablet (20 mg total) by mouth daily 4 025 Active cetirizine (ZyrTEC) 10 mg tabletIndications: Allergic Rhinitis Take 1 tablet (10 mg total) by mouth daily 4 025 Active magnesium oxide (MAG-OX) 400 mg (241.3 mg elemental magnesium) tabletIndications: hypomagnesemia Take 2 tablets (800 mg total) by mouth 2 (two) times a day 4 Active miconazole 2 % powder Apply topically 2 (two) times a day 4 Active sodium chloride (OCEAN) 0.65 % nasal spray Administer 2 sprays into each nostril every hour as needed for congestion [address] (PROTONIX) 40 mg EC tabletIndications: Treatment of Non-Bleeding Gastric Disorder Take 1 tablet (40 mg total) by mouth daily 4 Active al & mag hydroxide simethicone-diphen hydramine-lidocain e-nystatin (MAGIC MOUTHWASH) suspension Swish and spit 15 mL every 4 (four) hours as needed (mucositis) [address] (CYMBALTA) 60 mg capsule Take 1 capsule (60 mg total) by mouth daily Active ergocalciferol (VITAMIN D) 50,000 unit capsule Take 1 capsule (50,000 Units total) by mouth once a week 8 capsule 5 Active benzocaine-menthoL (CHLORASEPTIC) 6-10 mg lozenge Take 1 lozenge by mouth every 4 (four) hours as needed for sore throat 100 tablet 1 5 Active chlordiazePOXIDE (LIBRIUM) 25 mg capsuleIndications :Alcohol Withdrawal Assessment Scale score Take 1 capsule (25 mg total) by mouth 3 (three) times a day as needed for withdrawal symptoms for up to 7 days 21 capsule 5 Active folic acid (FOLVITE) 1 mg tabletIndications: Treatment of known or suspected Wernicke's Encephalopathy Take 1 tablet (1 mg total) by mouth daily for 2 doses 2 tablet 5 Active naltrexone (DEPADE) 50 mg tablet Take 1 tablet (50 mg total) by mouth daily 30 tablet 11 5 026 Active thiamine (VITAMIN B1) 100 mg tablet Take 1 tablet (100 mg total) by mouth daily 30 tablet 11 5 026 Active Active Problems Problem Noted Date Diagnosed Date Alcoholic intoxication without complication 07/17 Unsteady gait 05/03/2024 Pre-syncope 05/03/2024 Hypokalemia 05/03/2024 Elevated liver enzymes 05/03/2024 Elevated lipase 05/03/2024 Leukopenia 05/03/2024 Thrombocytopenia 05/03/2024 Anxiety and depression 05/03/2024 Hyperlipidemia 05/03/2024 Bacteremia 05/03/2024 SBO (small bowel obstruction) 02/07/2024 Closed fracture of shaft of left humerus with no nunion 08/23/2023 Hypomagnesemia 07/10/2023 Fungal dermatitis 05/23/2023 Uncontrolled hypertension 05/23/2023 Alcohol withdrawal syndrome without complication 05/22/2023 Closed fracture of shaft of left humerus, unspecified fracture morphology, initial encounter 08/04/2022 Alcohol intoxication 02/14/2022 Iron deficiency anemia 01/12/2022 Other dietary vitamin B12 deficiency anemia 12/16 Major neurocognitive disorder 07/07/2019 Substance use disorder 06/26/2019 Vitamin D deficiency 01/10/2019 Alcohol use disorder, severe, dependence 019 Generalized anxiety disorder 01/09/2019 Recurrent major depressive disorder 01/09/2019 Anemia 01/25/2018 GERD (gastroesophageal reflux disease) 8 Hepatic steatosis 01/25/2018 Hydronephrosis 01/25/2018 Pyelonephritis 01/25/2018 Ureteropelvic junction (UPJ) obstruction, right 01/25/2018 Abdominal pain 05/01/2013 S/P colectomy 05/01/2013 Resolved Problems Problem Noted Date Diagnosed Date Resolved Date Acute cystitis without hematuria 08/06/2022 05/23/2023 Surgical History Surgery Date Site/Laterality Comments COLON SURGERY ROTATOR CUFF REPAIR Right Medical History Medical History Date Comments Chronic hypokalemia ETOH abuse 2001 Confusion 2013 Closed fracture of left humerus 08/03/2022 Sharft of left humerus Alcohol withdrawal syndrome without complication (HCC) 08/03/2022 Substance abuse (HCC) 02/2022 Depression 2019 Vertigo 2014 PONV (postoperative nausea and vomiting) nausea only Family History Medical History Relation Name Comments Asthma Brother Pulmonary embolism Father COPD Mother No Known Problems Sister Anesthesia problems Neg Hx Relation Name Status Comments Brother Alive Father Mother Sister Alive Social History Tobacco Use Types Packs/Day Years Used Date Smoking Tobacco: Never Smokeless Tobacco: Never Tobacco Cessation:Counseling Given: Not Answered OASIS D0700: Social Isolation Answer Da te Recorded Frequency of experiencing loneliness or isolatio n Rarely 05/19/2024 [facility] Utilities Answer Date Recorded In the past 12 months has th e electric, gas, oil, or water company threatened to shut off services in your home? No 08/11/2024 Social Connection and Isolat ion Panel [NHANES] Answer Date Recorded In a typical week, how many times do you talk on the phone with family, friends, or neighbors? More than three times a week 08/11/2024 How often do you get togethe r with friends or relatives? More than three times a week 08/11/2024 How often do you attend chur ch or taoist services? Never 08/11/2024 Do you belong to any clubs o r organizations such as rastafari groups, unions, fraternal or athletic groups, or school groups? No 08/11/2024 How often do you attend meet ings of the clubs or organizations you belong to? Never 08/11/2024 Are you , , di vorced, , never , or living with a partner? 08/11/2024 AUDIT-C Answer Date Recorded Q1: How often do you have a drink containing alcohol? 4 or more times a week 08/10/2024 Q2: How many drinks containi ng alcohol do you have on a typical day when you are drinking? 10 or more Q3: How often do you have si x or more drinks on one occasion? Daily or almost daily 08/10/2024 Overall Financial Resource Strain (CARDIA) Answe r Date Recorded How hard is it for you to pa y for the very basics like food, housing, medical care, and heating? Not very hard 08/11/2024 PHQ-2 Answer Date Recorded PHQ-2 Total Score 6 05/06/2024 Hunger Vital Sign Answer Date Recorded Within the past 12 months, y ou worried that your food would run out before you got the money to buy more. Never true 08/11/19 25 Within the past 12 months, t he food you bought just didn't last and you didn't have money to get more. Never true 08/11/2024 PRAPARE - Transportation Answer Date Re corded In the past 12 months, has l ack of transportation kept you from medical appointments or from getting medications? No 07/17 In the past 12 months, has l ack of transportation kept you from meetings, work, or from getting things needed for daily living? No 08/11/2024 Housing Stability Vital Sign Answer Albert e Recorded In the last 12 months, was t here a time when you were not able to pay the mortgage or rent on time? No 07/10/2023 In the last 12 months, how many places have you lived? 1 07/10/2023 In the last 12 months, was t here a time when you did not have a steady place to sleep or slept in a longterm (including now)? No 07/10/2023 PHQ-9 Answer Date Recorded PHQ-9 Total Score 14 05/06/2024 Housing Stability Vital Sign Answer Albert e Recorded In the last 12 months, was t here a time when you were not able to pay the mortgage or rent on time? No 08/11/2024 In the past 12 months, how m any times have you moved where you were living? 0 08/11/2024 At any time in the past 12 m [facility], were you homeless or living in a longterm (including now)? No 08/11/2024 Personal Safety Answer Date Recorded Have you ever been in or are you currently in a harmful physical or emotional relationship or is someone making you feel afraid or unsafe? Denies 08/10/2024 Comments No Sex and Gender Information Value Date Recorded Sex Assigned at Not on file Legal Sex Female 3:57 AM SEED POTATO CUTTER Gender Identity Female 09/27/2023 5:34 PM CDT Sexual Orientation Straight 01/27/2024 10 :28 AM CDT Obstetrics History Last Filed Vital Signs Vital Sign Reading Time Taken Comments Blood Pressure 136/91 08/13/2024 12:26 PM SEED POTATO CUTTER Pulse 73 08/13/2024 12:26 PM SEED POTATO CUTTER Temperature 36.5 C (97.7 F) 08/13/2024 12:26 PM SEED POTATO CUTTER Respiratory Rate 18 08/13/2024 12:26 PM SEED POTATO CUTTER Oxygen Saturation 98% 08/13/2024 12:26 PM SEED POTATO CUTTER Inhaled Oxygen Concentration - - Weight 88.1 kg (194 lb 4.8 oz) 08/10/2024 9:36 P M SEED POTATO CUTTER Height 170.2 cm (5' 7) 08/10/2024 9:36 PM SEED POTATO CUTTER Body Mass Index 30.43 08/10/2024 9:36 PM SEED POTATO CUTTER Plan of Treatment Health Maintenance Due Date Last Done Comments Breast Cancer Screening-Mammogram 1965 Cervical Cancer Screening 1965 Colon Cancer Screening-Colonoscopy 1965 DTaP/Tdap/Td Vaccine (1 - Tdap) 1976 Hepatitis B Screening 1983 Regular Well Visit/Exam 18-64 1983 Pneumococcal vaccine <65 (1 of 2 - PCV) 1984 Zoster Vaccine (1 of 2) 2015 Influenza Vaccine (Season Ended) 2025 Depression Screening 05/03/2025 05/03/2024, 05/03/20 24 Hepatitis C Screening Completed 05/04/2024 Medical Devices Implanted Type Area Form Grader Operator Device Identifier Shelf Expiration Date Model / Serial / Lot Breast-08/04/19 18 Implanted:07/17 (Quantity not on file) Breast Bilateral: Breast Synthes 3.5mm 6mm 28mm 2.5mm Self Tap Small Hexagonal Socket Low Profile 204.828 - [id number] Implanted:Qty: 1 on 09/11/2023 by Berta Avalos MD at [facility] Left: Arm Synthes I 204.828 / / Synthes 3.5mm 2.9mm 28mm Self Tap Lock Stardrive Conical Head T15 Full 212.110 - [id number] Implanted:Qty: 2 on 09/11/2023 by Berta Avalos MD at [facility] Left: Arm Synthes I 212.110 / / Synthes 3.5mm 6mm 24mm 2.5mm Self Tap Small Hexagonal Socket Low Profile 204.824 - [id number] Implanted:Qty: 1 on 09/11/2023 by Berta Avalos MD at [facility] [place] Left: Arm Synthes I 204.824 / / Synthes Lcp 67mm 7 Hole Low Profile Cut To Length Plate Bone Stainless 249.683 - [id number] Implanted:Qty: 1 on 09/11/2023 by Berta Avalos MD at [facility] Left: Arm Synthes I 249.683 / / Synthes 2.7mm 5mm 34mm 2.5mm Self Tap Stardrive Cortical T8 Screw Bone 202.894 - [id number] Implanted:Qty: 2 on 09/11/2023 by Berta Avalos MD at [facility] Left: Arm Synthes I 202.894 / / Synthes 2.7mm 5mm 36mm 2.5mm Self Tap Stardrive Cortical T8 Screw Bone 202.896 - [id number] Implanted:Qty: 1 on 09/11/2023 by Berta Avalos MD at [facility] Left: Arm Synthes I 202.896 / / Synthes 2.7mm 5mm 28mm 2.5mm Self Tap Stardrive Cortical T8 Screw Bone 202.888 - [id number] Implanted:Qty: 1 on 09/11/2023 by Berta Avalos MD at [facility] Left: Arm Synthes I 202.888 / / Synthes Lcp Combi [id number] 12 Hole Limit Contact Taper End Plate Bone 223.621 - [id number] Implanted:Qty: 1 on 09/11/2023 by Berta Avalos MD at [facility] Left: Arm Synthes I 223.621 / / Synthes 3.5mm 6mm 26mm 2.5mm Self Tap Small Hexagonal Socket Low Profile 204.826 - [id number] Implanted:Qty: 1 on 09/11/2023 by Berta Avalos MD at [facility] Left: Arm Synthes I 204.826 / / Synthes 3.5mm 6mm 32mm 2.5mm Self Tap Small Hexagonal Socket Low Profile 204.832 - [id number] Implanted:Qty: 1 on 09/11/2023 by Berta Avalos MD at [facility] Left: Arm Synthes I 204.832 / / Synthes 3.5mm 6mm 22mm 2.5mm Self Tap Small Hexagonal Socket Low Profile 204.822 - [id number] Implanted:Qty: 1 on 09/11/2023 by Berta Avalos MD at [facility] Left: Arm Synthes I 204.822 / / Procedures Procedure Name Priority Date/Time Associated Diagnosis Comments HEPATITIS C ANTIBODY Routine 05/04/2024 3:32 PM CDT from Last 3 Months or Most Recently Relevant to Health Maintenance Results * Hepatitis C antibody Blood (05/04/2024 3:32 PM CDT) Hep C Ab Nonreactive Nonreactive Comment: Antibodies to HCV not detected. Does NOT exclude the possibility of recent exposure to HCV. Current interpretive data was last revised on 22 Interpretive Data Nonreactive: Antibodies to HCV not detected. Does NOT exclude the possibility of recent exposure to HCV. Equivocal: Equivocal for HCV antibodies. Supplemental molecular testing will be automatically performed to determine infection status in accordance with current CDC screening recommendations. Reactive: Positive for HCV antibodies. This may represent current or past HCV infection. Supplemental molecular testing will be automatically performed to determine current infection status in accordance with current CDC screening recommendations. Interpretive data was last revised on 2019. Blood 05/04/2024 3:32 PM CDT 05/04/2024 6:52 PM CDT us Sintia Shi NP LAB MICROBIOLOGY - GENERAL O RDERABLES Final Result [facility] [address] [facility] Department [place] [address] from Last 3 Months or Most Recently Relevant to Health Maintenance Insurance [employer] OOS BL CHOICE PRF [place] Advance Directives For more information, please contact: [phone] Documents on File Type Date Recorded Patient Supervisor Inspection Department Expl anation ADVANCE DIRECTIVE 08/11/2024 2:35 PM Power of Director Sales And Marketing-Medical ADVANCE DIRECTIVE 02/07/2024 2:35 PM Power of Director Sales And Marketing-Medical * Full Code (Latest Code Status on File) Date Activated Date Inactivated Comments 08/10/2024 7:57 AM 08/13/2024 6:36 PM * Full Code Date Activated Date Inactivated Comments 05/03/2024 5:59 PM 05/18/2024 6:46 PM * Full Code Date Activated Date Inactivated Comments 02/07/2024 7:09 AM 02/09/2024 4:21 PM * Full Code Date Activated Date Inactivated Comments 07/09/2023 1:05 AM 07/10/2023 7:22 PM * Full Code Date Activated Date Inactivated Comments 05/22/2023 9:52 PM 05/25/2023 2:09 PM Care Teams Engineer Conductor Relationship Specialty Start Date End Date Sachin Nguyen DO PCP - General 08/11/15
--- OUTSIDE RECORDS SUMMARY | 2025-01-14 07:56 | XMS_ITS | Encounter Summary ---
Author Organization [facility] Address [address] [place] [address] Care Team Providers Care K 9 Police Officer Name Role Phone Sachin Nguyen DO Primary Care Provider Unavailable Encounter Details Date Type Department Care Team (Late st Contact Info) Description 08/12/2008 Outpatient Historical [facility] Juan Arambula MD [address] [place] [address] Abdominal Pain, Epigastric Social History Tobacco Use Types Packs/Day Years Used Date Smoking Tobacco: Never Assessed Comments Unknown Sex and Gender Information Value Date Recorded Sex Assigned at Not on file Legal Sex Female 3:41 AM HOGSHEAD MAT ASSEMBLER Gender Identity Not on file Sexual Orientation Not on file documented as of this encounter Plan of Treatment Not on file documented as of this encounter Procedures Procedure Name Priority Date/Time Associated Diagnosis Comments XR SMALL BOWEL Timed Study 08/12/2008 8:50 AM HOGSHEAD MAT ASSEMBLER documented in this encounter Results * XR SMALL BOWEL (08/12/2008 8:50 AM HOGSHEAD MAT ASSEMBLER) Anatomical Region Laterality Modality Abdomen Other 08/12/2008 8:50 AM HOGSHEAD MAT ASSEMBLER Narrative 08/13/2008 7:47 AM HOGSHEAD MAT ASSEMBLER [address] [place], [place] [address] Admit Date: 08/12/2008 JORDEN SOL Sex: F Admit Prov: JUAN ARAMBULA Date: 1965 Primary Care Prov: CMRN: [id number] [id number] Ordering Prov: N/A Accession Number: [id number] Interpretation SMALL BOWEL SERIES 08/12/2008 Clinical history: Mid epigastric abdominal pain, previous colectomy. Findings: A preliminary abdominal cupola patcher helper radiograph is not remarkable. Following oral administration of barium a series of abdominal radiographs were obtained up to 2.5 hours at which time definitive contrast arrives within the patient's rectum. The patient has had a previous subtotal colectomy with a small bowel rectosigmoid anastomosis. The small bowel is normal in caliber and shows a normal mucosal pattern throughout. No intrinsic or extrinsic small bowel radiographic abnormality is seen. There is no evidence of obstruction. Impression: Previous subtotal colectomy. Radiographically normal small bowel findings with contrast in the rectum at 2.5 hours. No evidence of obstruction. . Dictated by: PERCY FRANCO 08/12/2008 11:45 Electronically signed by: PERCY FRANCO 08/13/2008 07:46 Transcribed: 08/12/2008 12:42 LE Procedure Note Percy Franco MD - 08/13/2008 [facility] [address] [place], [place] [address] Admit Date: 08/12/2008 JORDEN SOL Sex: F Admit Prov: JUAN ARAMBULA Date: 1965 Primary Care Prov: CMRN: [id number] [id number] IM[facility] Ordering Prov: N/A Interpretation SMALL BOWEL SERIES 08/12/2008 Clinical history: Mid epigastric abdominal pain, previouscolectomy. Findings: A preliminary abdominal cupola patcher helper radiograph is notremarkable. Following oral administration of barium a series of abdominalradiographs were obtained up to 2.5 hours at which time definitive contrastarrives within the patient's rectum. The patient has had a previoussubtotal colectomy with a small bowel rectosigmoid anastomosis. The smallbowel is normal in caliber and shows a normal mucosal pattern throughout. No intrinsic or extrinsic small bowel radiographic abnormality is seen.There is no evidence of obstruction. Impression: Previous subtotal colectomy. Radiographically normal small bowelfindings with contrast in the rectum at 2.5 hours. No evidence ofobstruction. . Dictated by: PERCY FRANCO 08/12/2008 11:45 Electronically signed by: PERCY FRANCO 08/13/2008 07:46 Transcribed: 08/12/2008 12:42 LE Juan Arambula MD DIAGNOSTIC IMAGING ORDERABLE S Final Result documented in this encounter Visit Diagnoses Diagnosis Abdominal pain, epigastric documented in this encounter Care Teams K 9 Police Officer Relationship Specialty Start Date End Date Sachin Nguyen DO PCP - General Internal Medicine 05/01/13 documented as of this encounter
--- OUTSIDE RECORDS SUMMARY | 2025-01-14 07:56 | XMS_ITS | Encounter Summary ---
Author Organization [facility] Address [facility] [place] [address] Care Team Providers Care Wrapper Hands Sprayer Name Role Phone Sachin Nguyen DO Primary Care Provider [phone] Encounter Details Date Type Department Care Team (Late st Contact Info) Description 01/17/2019 Hospital Follow-up Call [facility] Telemetry Unit B [facility] [address] [place] [address] Lara Pastrana Social History Tobacco Use Types Packs/Day Years Used Date Smoking Tobacco: Never Smokeless Tobacco: Never Alcohol Use Standard Drinks/Week Comments Yes 0 (1 standard drink = 0.6 oz pur e alcohol) Daily Comments No Sex and Gender Information Value Date Recorded Sex Assigned at Female 02/14/2022 5:52 PM CDT Legal Sex Female 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 Answer Date of Assessment Author Status No 01/07/2019 12:03 PM CDT Acti ve * Do you have serious difficulty walking or climbing stairs? Answer Date of Assessment Author Status No 01/07/2019 12:03 PM CDT Rama Jones RN Active * Do you have difficulty dressing or bathing? Answer Date of Assessment Author Status No 01/07/2019 12:03 PM Rama Palomino RN Active * Because of a physical, mental, or emotional condition, do you have difficulty doing errands alone such as visiting a doctor's office or shopping? Answer Date of Assessment Author Status No 01/07/2019 12:03 PM Rama Palomino RN Active documented as of this encounter Mental Status * Because of a physical, mental, or emotional condition, do you have serious difficulty concentrating, remembering, or making decisions? Answer Entry Date Author Status No 01/07/2019 12:03 PM Rama Palomino RN Active documented in this encounter Plan of Treatment Not on file documented as of this encounter Visit Diagnoses Not on filedocumented in this encounter Care Teams Wrapper Hands Sprayer Relationship Specialty Start Date End Date Sachin Nguyen DO [address] [place] [address] PCP - General INTERNAL MEDICINE 06/12/17 documented as of this encounter
--- OUTSIDE RECORDS SUMMARY | 2025-01-14 07:56 | XMS_ITS | Referral Summary ---
Author Organization [facility] Address [address] [place] [address] Care Team Providers Care Medical Or Surgical Instrument Maker Name Role Phone Sachin Nguyen DO Primary Care Provider [phone] Allergies No known active allergies Medications fenofibrate [...] Date Acute cystitis without hematuria 08/06/2022 05/23/2023 Social History Tobacco Use Types Packs/Day Years Used Date Smoking Tobacco: Never Smokeless Tobacco: Never Tobacco Cessation:Counseling Given: Not Answered OASIS D0700: Social Isolation Answer Da te Recorded Frequency of experiencing loneliness or isolatio n Rarely 05/19/2024 [facility] Utilities Answer Date Recorded In the past [...] often do you attend chur ch or amish services? Never 08/11/2024 Do you belong to any clubs o r organizations such as temple groups, unions, fraternal or athletic groups, or [...] place to sleep or slept in a fpc (including now)? No 07/10/2023 PHQ-9 Answer Date [...] any time in the past [address] [facility], were you homeless or living in a fpc (including now)? No 08/11/2024 Personal Safety Answer Date Recorded Have you ever been in or are you currently in a harmful physical or emotional relationship or is someone making you feel afraid or unsafe? Denies 08/10/2024 Comments No Sex and Gender Information Value Date Recorded Sex Assigned at Not on file Legal Sex Female 3:57 AM COUNTER TENDER Gender Identity Female 09/27/2023 5:34 PM CDT Sexual Orientation Straight 01/27/2024 10 :28 AM CDT Last Filed Vital Signs Vital Sign Reading Time Taken Comments Blood Pressure 136/91 08/13/2024 12:26 PM COUNTER TENDER Pulse 73 08/13/2024 12:26 PM COUNTER TENDER Temperature 36.5 C (97.7 F) 08/13/2024 12:26 PM COUNTER TENDER Respiratory Rate 18 08/13/2024 12:26 PM COUNTER TENDER Oxygen Saturation 98% 08/13/2024 12:26 PM COUNTER TENDER Inhaled Oxygen Concentration - - Weight 88.1 kg (194 lb 4.8 oz) 08/10/2024 9:36 P M COUNTER TENDER Height 170.2 cm (5' 7) 08/10/2024 9:36 PM COUNTER TENDER Body Mass Index 30.43 08/10/2024 9:36 PM COUNTER TENDER Plan of Treatment Not on file Medical Devices Implanted Type Area Segment Block Layer Device Identifier Shelf Expiration Date Model / Serial / Lot Breast-08/04/19 18 Implanted:07/17 (Quantity not on file) Breast Bilateral: Breast Synthes 3.5mm 6mm 28mm 2.5mm Self Tap Small Hexagonal Socket Low Profile 204.828 - [id number] Implanted:Qty: 1 on 09/11/2023 by Berta Avalos MD at [facility] Left: Arm Synthes I 204.828 / / Synthes 3.5mm 2.9mm 28mm Self Tap Lock Stardrive Conical Head T15 Full 212.110 - [id number] Implanted:Qty: 2 on 09/11/2023 by Berta Avalos MD at [facility] Left: Arm Synthes I 212.110 / / Synthes 3.5mm 6mm 24mm 2.5mm Self Tap Small Hexagonal Socket Low Profile 204.824 - [id number] Implanted:Qty: 1 on 09/11/2023 by Berta Avalos MD at [facility] Left: Arm Synthes I 204.824 / / Synthes Lcp 67mm 7 Hole Low Profile Cut To Length Plate Bone Stainless 249.683 - [id number] Implanted:Qty: 1 on 09/11/2023 by Berta Avalos MD at [facility] Left: Arm Synthes I 249.683 / / Synthes 2.7mm 5mm 34mm 2.5mm Self Tap Stardrive Cortical T8 Screw Bone 202.894 - [id number] Implanted:Qty: 2 on 09/11/2023 by Berta Avalos MD at [facility] Left: Arm Synthes I 202.894 / / Synthes 2.7mm 5mm 36mm 2.5mm Self Tap Stardrive Cortical T8 Screw Bone 202.896 - [id number] Implanted:Qty: 1 on 09/11/2023 by Berta Avalos MD at [facility] Left: Arm Synthes I 202.896 / / Synthes 2.7mm 5mm 28mm 2.5mm Self Tap Stardrive Cortical T8 Screw Bone 202.888 - [id number] Implanted:Qty: 1 on 09/11/2023 by Berta Avalos MD at [facility] Left: Arm Synthes I 202.888 / / Synthes Lcp Combi [id number] 12 Hole Limit Contact Taper End Plate Bone 223.621 - [id number] Implanted:Qty: 1 on 09/11/2023 by Berta Avalos MD at [facility] Left: Arm Synthes I 223.621 / / Synthes 3.5mm 6mm 26mm 2.5mm Self Tap Small Hexagonal Socket Low Profile 204.826 - [id number] Implanted:Qty: 1 on 09/11/2023 by Berta Avalos MD at [facility] Left: Arm Synthes I 204.826 / / Synthes 3.5mm 6mm 32mm 2.5mm Self Tap Small Hexagonal Socket Low Profile 204.832 - [id number] Implanted:Qty: 1 on 09/11/2023 by Berta Avalos MD at [facility] Left: Arm Synthes I 204.832 / / Synthes 3.5mm 6mm 22mm 2.5mm Self Tap Small Hexagonal Socket Low Profile 204.822 - [id number] Implanted:Qty: 1 on 09/11/2023 by Berta Avalos MD at [facility] Left: Arm Synthes I 204.822 / / [...] 3:32 PM CDT 05/04/2024 6:52 PM CDT Sintia Shi METAL SOLDERER LAB MICROBIOLOGY - GENERAL O RDERABLES Final Result [facility] [address] [facility] Department [place] [address] from Last 3 Months or Most Recently Relevant to Health Maintenance Insurance BLUE ACCESS OOS BL CHOICE [place]F [place] Advance Directives For more information, please contact: [phone] Documents on File Type Date Recorded Patient Drafter Chief Design Expl anation ADVANCE DIRECTIVE 08/11/2024 2:35 PM Power of Vp [employer] Partnerships-Medical ADVANCE DIRECTIVE 02/07/2024 2:35 PM Power of Vp [employer] Partnerships-Medical * Full Code (Latest Code Status on [...] 9:52 PM 05/25/2023 2:09 PM Care Teams Medical Or Surgical Instrument Maker Relationship Specialty Start Date End Date Sachin Nguyen DO PCP - General 08/11/15
--- OUTSIDE RECORDS SUMMARY | 2025-01-14 07:56 | XMS_ITS | Encounter Summary ---
Author Organization [facility] Address [address] [place] [address] Care Team Providers Care Dry Cleaning Supervisor Name Role Phone Sachin Nguyen DO Primary Care Provider Unavailable Encounter Details Date Type Department Care Team (Late st Contact Info) Description 11/17/2004 [facility] [address] [place] [id number] SURGERY FOLLOWUP, OTHER (Primary Dx) Social History Tobacco Use Types Packs/Day Years Used Date Smoking Tobacco: Never Assessed Comments Unknown Sex and Gender Information Value Date Recorded Sex Assigned at Not on file Legal Sex Female 3:41 AM PASTRY WRAPPER Gender Identity Not on file Sexual Orientation Not on file documented as of this encounter Plan of Treatment Not on file documented as of this encounter Visit Diagnoses Diagnosis Follow-up examination, following other surgery- Primary documented in this encounter Care Teams Dry Cleaning Supervisor Relationship Specialty Start Date End Date Sachin Nguyen DO PCP - General Internal Medicine 05/01/13 documented as of this encounter
--- OUTSIDE RECORDS SUMMARY | 2025-01-14 07:56 | XMS_ITS | Clinical Summary ---
Author Organization [facility] Address [address] [place] [address] Care Team Providers Care Energy Rater Name Role Phone Scahin Nguyen DO Primary Care Provider Source Comments [facility],non-owned Affiliates and Associated Physician Practices is amultiple site organization consisting of ambulatory clinics and hospital sitesin [place], [place], [place] and [place]. This disclosure is being madepursuant to the Care Everywhere program and may not contain all information available regarding this patient. Last updated 18.[facility] Allergies Active Allergy Reactions Criticality Noted Date Comments Augmentin Rash Medium 08/09/2016 Prednisone Psychiatric Medium 08/08/2016 Shaky and anxiety Medications * This document contains information received from the source organization and may not represent a complete record from that organization. * Be aware that medications may not be up to date on this document. Alwaysverify current medications with the patient. fenofibrate (LOFIBRA) 160 MG tabletIndicatio ns:Hyperlipidem ia Take 1 tablet by mouth once daily Take with largest meal of the day. Reasons: High Amount of Fats in the Blood 30 tablet 9 Active DULoxetine (CYMBALTA) 60 MG capsuleIndicati ons:Depression Take 1 capsule by mouth 2 times daily Reasons: Depression 60 capsule 9 Active folic acid (FOLVITE) 1 MG tabletIndicatio ns:Folate Deficiency Anemia Take 1 tablet by mouth once daily Reasons: Anemia From Inadequate Folic Acid 30 tablet 9 Active famotidine (PEPCID) 20 MG tabletIndicatio ns:Heartburn Take 1 tablet by mouth 2 times daily Reasons: Heartburn 60 tablet 9 Active thiamine 100 MGIndications:T hiamine Deficiency Take 1 tablet by mouth once daily Reasons: Deficiency of Vitamin B1 30 tablet 9 Active vitamin D3-cholecalcife rol (CHOLECALCIFERO L) 25 MCG (1000 UNITS) tabletIndicatio ns:Vitamin D Deficiency Take 1 tablet by mouth once daily Reasons: Vitamin D Deficiency 30 tablet 9 Active meloxicam (MOBIC) 7.5 MG tabletIndicatio ns:Osteoarthrit is Take 1 tablet by mouth once daily Reasons: Joint Damage causing Pain and Loss of Function 30 tablet 9 Active hydrOXYzine hcl (ATARAX) 25 MG tabletIndicatio ns:Anxiety Take 1 tablet by mouth at bedtime Reasons: Feeling Anxious 30 tablet 0 Active donepezil (ARICEPT) 5 MG tabletIndicatio ns:Alzheimer's Disease Take 1 tablet by mouth at bedtime Reasons: Alzheimer's Disease 30 tablet 0 Active acamprosate calcium EC (CAMPRAL) 333 MG tabletIndicatio ns:Alcoholism Take 2 tablets by mouth 3 times daily Reasons: Excessive Use of Alcohol 90 tablet 0 Active Active Problems Problem Noted Date Diagnosed Date Major neurocognitive disorder 07/07/2019 Substance use disorder 06/26/2019 Vitamin D deficiency 01/10/2019 Alcohol use disorder, severe, dependence 019 Recurrent major depressive disorder 01/09/2019 Generalized anxiety disorder 01/09/2019 Resolved Problems Problem Noted Date Diagnosed Date Resolved Date Alcohol dependence with with drawal with perceptual disturbance 01/11/2019 Family History Medical History Relation Name Comments Negative Family History Father Negative Family History Mother Relation Name Status Comments Father Mother Social History Tobacco Use Types Packs/Day Years Used Date Smoking Tobacco: Never Smokeless Tobacco: Never Tobacco Cessation:Counseling Given: Yes Alcohol Use Standard Drinks/Week Comments Yes 175 (1 standard drink = 0.6 oz p ure alcohol) Comments No Sex and Gender Information Value Date Recorded Sex Assigned at Not on file Legal Sex Female 6:19 AM PATTERN MECHANIC Gender Identity Not on file Sexual Orientation Not on file Last Filed Vital Signs Vital Sign Reading Time Taken Comments Blood Pressure 128/85 07/10/2019 7:10 AM PATTERN MECHANIC Pulse 82 07/10/2019 7:10 AM PATTERN MECHANIC Temperature 36.6 C (97.9 F) 07/10/2019 7:10 AM PATTERN MECHANIC Respiratory Rate 18 07/10/2019 7:10 AM PATTERN MECHANIC Oxygen Saturation 100% 07/10/2019 7:10 AM PATTERN MECHANIC Inhaled Oxygen Concentration - - Weight 74.4 kg (164 lb) 07/10/2019 10:31 AM PATTERN MECHANIC Height 172.7 cm (5' 8) 07/10/2019 10:31 AM PATTERN MECHANIC Body Mass Index 24.94 07/10/2019 10:31 AM PATTERN MECHANIC Plan of Treatment Health Maintenance Due Date Last Done Comments COLOGUARD (AGES 45-75) - COL ON CA SCREENING 1965 COLON MONITORING 1965 COLONOSCOPY - COLON CA SCREENING 1965 CT COLONOGRAPHY - COLON CA SCREENING 1965 Colorectal Cancer Screening 1965 FIT - COLON CA SCREENING 1965 FLEX SIG - COLON CA SCREENING 1965 MAMMOGRAM 1965 HIV SCREENING 1980 DTAP/TDAP/TD VACCINES (1 - Tdap) 1984 HEPATITIS B VACCINE (1 of 3 - 19+ 3-dose series) 1984 PAP SMEAR 1986 PNEUMOCOCCAL VACCINE 50+ (1 of 1 - PCV) 2015 ZOSTER VACCINE (1 of 2) 2015 COVID-19 VACCINE ( - 2023-2 5 season) 2024 LIPID TESTING 06/27/2024 06/27/2019, 01/10/2019 DEPRESSION SCREENING 07/16/2024 INFLUENZA VACCINE (Season Ended) 2025 HEPATITIS C SCREENING Completed 01/27/2018 , 01/26/2018 HIB VACCINE Aged Out No longer eligi ble based on patient's age to complete this topic HPV VACCINE Aged Out No longer eligi ble based on patient's age to complete this topic MENINGOCOCCAL (Group B) VACCINE SHARED DECISION-MAKING Aged Out No longer eligible based on patient's age to complete this topic MENINGOCOCCAL GROUPS A/C/Y/W VACCINE Aged Out No longer eligible b ased on patient's age to complete this topic Procedures Procedure Name Priority Date/Time Associated Diagnosis Comments LIPID PROFILE AM Draw 06/27/2019 5:44 AM PATTERN MECHANIC from Last 3 Months or Most Recently Relevant to Health Maintenance Results * (ABNORMAL) LIPID PROFILE (06/27/2019 5:44 AM PATTERN MECHANIC) Cholesterol 225(H) <200 mg/dL 06/27/2019 6:18 AM PATTERN MECHANIC [facility] Triglycerides 52 <150 mg/dL 06/27/2019 6:18 AM [facility] HDL Cholesterol 104 >40 mg/dL 9 6:18 AM PATTERN MECHANIC [facility] LDL Calculated 111 <130 mg/dL 06/27/2019 6:18 AM PATTERN MECHANIC [facility] VLDL Calculated 10 <=30 mg/dL 9 6:18 AM [facility] Chol HDL Ratio 2.2 <4.5 06/27/2019 6:18 AM [facility] LDL/HDL Ratio 1.1 <5.0 06/27/2019 6:18 AM [facility] Blood BLOOD SPECIMEN / Unknown Lab Venipuncture / Unknown 06/27/2019 5:44 AM PATTERN MECHANIC 06/27/2019 5:48 AM PATTERN MECHANIC us Peter Baez MD LAB - CHEMISTRY ORDERABLES Fin al Result [facility] [address] [place] [address] from Last 3 Months or Most Recently Relevant to Health Maintenance Advance Directives * Full Code (Latest Code Status on File) Date Activated Date Inactivated Comments 06/26/2019 12:15 PM 07/10/2019 5:02 PM * Full Code Date Activated Date Inactivated Comments 01/09/2019 12:03 PM 01/22/2019 7:13 PM Care Teams Energy Rater Relationship Specialty Start Date End Date Sachin Nguyen DO PCP - General Internal Medicine 08/08/16
--- OUTSIDE RECORDS SUMMARY | 2025-01-14 07:56 | XMS_ITS | Encounter Summary ---
Author Organization [facility] Address [address] [place] [address] Care Team Providers Care Travel Specialist Name Role Phone Sachin Nguyen DO Primary Care Provider Unavailable Encounter Details Date Type Department Care Team (Late st Contact Info) Description 12/13/2002 Outpatient Historical [facility] [place], Authorized P NO ADDRESS ON FILE DERMATITIS NOS (Primary Dx) Social History Tobacco Use Types Packs/Day Years Used Date Smoking Tobacco: Never Assessed Comments Unknown Sex and Gender Information Value Date Recorded Sex Assigned at Not on file Legal Sex Female 3:41 AM FORENSIC SCIENCE EXAMINER Gender Identity Not on file Sexual Orientation Not on file documented as of this encounter Plan of Treatment Not on file documented as of this encounter Visit Diagnoses Diagnosis Contact dermatitis and other eczema, due to unspecified cause- Primary documented in this encounter Care Teams Travel Specialist Relationship Specialty Start Date End Date Sachin Nguyen DO PCP - General Internal Medicine 05/01/13 documented as of this encounter
--- OUTSIDE RECORDS SUMMARY | 2025-01-14 07:56 | XMS_ITS | Encounter Summary ---
Author Organization [facility] Address [address] [place] [address] Care Team Providers Care Diversified Crops Ii Farmworker Name Role Phone Sachin Nguyen DO Primary Care Provider [phone] Encounter Details Date Type Department Care Team (Late st Contact Info) Description 01/30/2018 Hospital Follow-up Call [facility] Med/Surg [address] [place] [address] Angélica Andino, RN Social History Tobacco Use Types Packs/Day Years Used Date Smoking Tobacco: Never Smokeless Tobacco: Never Alcohol Use Standard Drinks/Week Comments Yes 0 (1 standard drink = 0.6 oz pur e alcohol) social Comments No Sex and Gender Information Value Date Recorded Sex Assigned at Female 02/14/2022 5:52 PM CDT Legal Sex Female 3:05 PM SCAFFOLD BUILDER Gender Identity Female 02/14/2022 5:52 PM CDT Sexual Orientation Straight 02/14/2022 5: 52 PM CDT documented as of this encounter Plan of Treatment Not on file documented as of this encounter Visit Diagnoses Not on filedocumented in this encounter Care Teams Diversified Crops Ii Farmworker Relationship Specialty Start Date End Date Sachin Nguyen DO [address] [place] [address] PCP - General INTERNAL MEDICINE 06/12/17 documented as of this encounter
--- NOTE | 2025-01-14 08:07 | ECHO_ITS ---
Patient Info Name: Rama Sol Age: 59 years : 1965 Gender: Female Ht: 67 in Wt: 200 lbs BSA: 2.10 m2 HR: 99 bpm BP: 149 / 117 mmHg Technical Quality: Good Exam Date: 01/14/2025 8:13 AM Patient Status: O Admit Date: 01/14/2025 Exam Type: CA echo doppler color flow Complete two-dimensional, color flow and Doppler transthoracic echocardiogram is performed. [place] Administrator: Camille Peraza Attending Provider: Hrariet Do Summary 1. Complete two-dimensional, color flow and Doppler transthoracic echocardiogram is performed. 2. Left ventricular chamber dimension is normal. 3. Left ventricular systolic function is normal, estimated at 55-60. 4. The left ventricular diastolic function is abnormal. 5. E/e' 17 is elevated. 6. There is trace aortic valve regurgitation. 7. There is trace mitral valve regurgitation. 8. There is trace tricuspid valve regurgitation. 9. No pulmonary hypertension, estimated pulmonary arterial systolic pressure is 24 mmHg. Left Ventricle E/e' 17 is elevated. Left ventricular chamber dimension is normal. Left ventricular systolic function is normal, estimated at 55-60. The left ventricular diastolic function is abnormal. Right Ventricle Right ventricular chamber dimension is normal. Right ventricular systolic function is normal. Left Atria Left atrial chamber dimension is normal. Right Atria Right atrial chamber dimension is normal. Aortic Valve The aortic valve is trileaflet. There is no aortic valve stenosis. There is trace aortic valve regurgitation. Pulmonic Valve There is no pulmonic regurgitation. Mitral Valve There is no mitral valve stenosis. There is trace mitral valve regurgitation. Tricuspid Valve There is trace tricuspid valve regurgitation. No pulmonary hypertension, estimated pulmonary arterial systolic pressure is 24 mmHg. Pericardium/Pleural There is no pericardial effusion. Inferior Vena Cava Normal inferior vena cava with >50% collapse upon inspiration consistent with normal right atrial pressure, 5 mmHg. Aorta The aortic root size at the sinus of Valsalva is normal. Left Ventricular Outflow Tract Name Value Normal LVOT 2D LVOT Diameter 2.0 cm LVOT Doppler LVOT Peak Velocity 93 cm/s LVOT Peak Gradient 3 mmHg LVOT Mean Gradient 2 mmHg LVOT VTI 17 cm LVOT VTI/AV VTI Ratio 0.7 LVOT Stroke Volume 50 ml LVOT CO 5.0 l/min LVOT CI 2.4 l/min/m2 Pulmonic Valve Name Value Normal RVOT Doppler RVOT Peak Velocity 71 cm/s RVOT Peak Gradient 2 mmHg PV Doppler PV Peak Velocity 76 cm/s PV Peak Gradient 2 mmHg Mitral Valve Name Value Normal MV Diastolic Function MV E Peak Velocity 90 cm/s MV A Peak Velocity 50 cm/s MV E/A 1.8 MV Decel Time (PW) 82 ms MV Annular TDI MV E/e' (Septal) 22.5 MV E/e' (Lateral) 14.6 MV E/e' (Average) 18.6 Tricuspid Valve Name Value Normal TV Regurgitation Doppler TR Peak Velocity 215 cm/s TR Peak Gradient 19 mmHg Estimated PAP/RSVP RA Pressure 5 mmHg <=5 PA Systolic Pressure 24 mmHg <36 RV Systolic Pressure 24 mmHg <36 TV Annular TDI TV Lateral Tawnya s' Velocity 11.5 cm/s >=9.5 Aortic Valve Name Value Normal AV Doppler AV Peak Velocity 145 cm/s AV Peak Gradient 8 mmHg AV Mean Gradient 5 mmHg AV VTI 23 cm AV Area (Cont Eq VTI) 2.2 cm2 >=3.0 AV Area (Cont Eq Tyrone) 1.9 cm2 AV DI (Tyrone) 0.64 AV Regurgitation 2D LVOT Area 3.0 cm2 Ventricles Name Value Normal LV Dimensions 2D/MM IVS Diastolic Thickness (2D) 1.0 cm 0.6-1.0 LVID Diastole (2D) 4.7 cm 3.8-5.2 LVIW Diastolic Thickness (2D) 0.9 cm 0.6-0.9 LVID Systole (2D) 3.5 cm 2.2-3.5 LVOT Diameter 2.0 cm LV Mass (2D Cubed) 149.17 g 67.00-162.00 LV Mass Index (2D Cubed) 71 g/m2 43-95 Relative Wall Thickness (2D) 0.38 <=0.42 LV Fractional Shortening/Ejection Fraction 2D/MM LV Fractional Shortening (2D) 27 % 27-45 LV EF (2D Teichholz) 52 % LV Diastolic Volume (4C MOD) 116 ml LV EF (4C MOD) 52 % LV Diastolic Volume (2C MOD) 80 ml LV EF (2C MOD) 45 % LV Diastolic Volume (BP MOD) 99 ml 46-106 LV Diastolic Volume Index (BP MOD) 47 ml/m2 29-61 LV Systolic Volume (BP MOD) 49 ml 14-42 LV Systolic Volume Index (BP MOD) 23 ml/m2 8-24 LV EF (BP MOD) 50 % 54-74 LV Diastolic Length (4C) 9.0 cm LV Systolic Length (4C) 7.8 cm LV Stroke Volume (4C MOD) 60 ml Atria Name Value Normal LA Dimensions LA Volume (4C A-L) 39 ml LA Volume (BP A-L) 43 ml RA Dimensions RA Systolic Major Quincy Length (4C) 5.5 cm 2.2-2.8 RA Area (4C) 12.5 cm2 <=18.0 Report Signatures
--- NOTE | 2025-01-14 08:09 | EST_ITS ---
Patient Info Name: Rama Sol Age: 59 years : 1965 Gender: Female Ht: 67 in Wt: 200 lbs BSA: 2.10 m2 HR: 101 bpm BP: 129 / 91 mmHg Exam Date: 01/14/2025 8:09 AM Patient Status: O Admit Date: 01/14/2025 Exam Type: CA stress test treadmill A treadmill exercise stress test was performed. Staff Referring Physician: Harriet Do Attending Provider: Harriet Do Exercise Technologist: Devi Rodriguez Exercise Physician: Qasim Coto DO Summary 1. 1. Negative Carlos Eduardo exercise stress test for ischemic ST changes by ECG criteria. 2. 2. Reduced functional capacity, achieving 6.5 METs of workload. 3. 3. Appropriate HR response to exercise. 4. 4. Appropriate HR recovery at 1 minute post exercise. 5. 5. No imaging with stress testing. 6. 6. Patient informed of the above results. Protocol: Carlos Eduardo Stress ECG Details Stage: REST Duration (min): 1 min : 12 sec Speed (mph): 0.0 Grade (%): 0 HR (bpm): 101 SBP (mmHg): 129 DBP (mmHg): 91 METS: --- Stage: REST Duration (min): 10 min : 58 sec Speed (mph): 0.0 Grade (%): 0 HR (bpm): 108 SBP (mmHg): 129 DBP (mmHg): 91 METS: --- Stage: STAGE 1 Duration (min): 1 min : 0 sec Speed (mph): 1.7 Grade (%): 10 HR (bpm): 129 SBP (mmHg): 129 DBP (mmHg): 91 METS: --- Stage: STAGE 1 Duration (min): 2 min : 0 sec Speed (mph): 1.7 Grade (%): 10 HR (bpm): 138 SBP (mmHg): 129 DBP (mmHg): 91 METS: --- Stage: STAGE 1 Duration (min): 3 min : 0 sec Speed (mph): 1.7 Grade (%): 10 HR (bpm): 141 SBP (mmHg): 154 DBP (mmHg): 78 METS: --- Stage: STAGE 2 Duration (min): 1 min : 0 sec Speed (mph): 2.5 Grade (%): 12 HR (bpm): 145 SBP (mmHg): 154 DBP (mmHg): 78 METS: --- Stage: STAGE 2 Duration (min): 1 min : 0 sec Speed (mph): 2.5 Grade (%): 12 HR (bpm): 145 SBP (mmHg): 154 DBP (mmHg): 78 METS: --- Stage: RECOVERY Duration (min): 0 min : 59 sec Speed (mph): 0.0 Grade (%): 0 HR (bpm): 140 SBP (mmHg): 151 DBP (mmHg): 76 METS: --- Stage: RECOVERY Duration (min): 1 min : 59 sec Speed (mph): 0.0 Grade (%): 0 HR (bpm): 119 SBP (mmHg): 151 DBP (mmHg): 76 METS: --- Stage: RECOVERY Duration (min): 2 min : 59 sec Speed (mph): 0.0 Grade (%): 0 HR (bpm): 118 SBP (mmHg): 176 DBP (mmHg): 105 METS: --- Stage: RECOVERY Duration (min): 3 min : 59 sec Speed (mph): 0.0 Grade (%): 0 HR (bpm): 113 SBP (mmHg): 176 DBP (mmHg): 105 METS: --- Stage: RECOVERY Duration (min): 4 min : 59 sec Speed (mph): 0.0 Grade (%): 0 HR (bpm): 114 SBP (mmHg): 179 DBP (mmHg): 95 METS: --- Stage: RECOVERY Duration (min): 5 min : 59 sec Speed (mph): 0.0 Grade (%): 0 HR (bpm): 111 SBP (mmHg): 179 DBP (mmHg): 95 METS: --- Stage: RECOVERY Duration (min): 6 min : 59 sec Speed (mph): 0.0 Grade (%): 0 HR (bpm): 111 SBP (mmHg): 162 DBP (mmHg): 95 METS: --- Stage: RECOVERY Duration (min): 7 min : 59 sec Speed (mph): 0.0 Grade (%): 0 HR (bpm): 112 SBP (mmHg): 162 DBP (mmHg): 95 METS: --- Stage: RECOVERY Duration (min): 8 min : 59 sec Speed (mph): 0.0 Grade (%): 0 HR (bpm): 111 SBP (mmHg): 150 DBP (mmHg): 97 METS: --- Stage: RECOVERY Duration (min): 9 min : 32 sec Speed (mph): 0.0 Grade (%): 0 HR (bpm): 112 SBP (mmHg): 150 DBP (mmHg): 97 METS: --- Rest HR: 108 bpm Peak HR: 147 bpm Rest Sys BP: 129 mmHg Peak Sys BP: 179 mmHg Max Pred HR: 161 bpm % Max Pred HR: 91 % Target HR: 137 bpm Max RPP: 26,313 bpm*mmHg Varela Score: 1 Termination Reason: Reached target heart rate or workload Cardiac Symptoms: Shortness of breath Max ST Seg Deviation: 0.60 mm Total Time: 4 min : 0 sec Rest Chiu BP: 91 mmHg Peak Chiu BP: 95 mmHg Angina Score: None Total METS: 6.5 Resting ECG Sinus tachycardia. Stress ECG No ST changes. Arrhythmias None. Report Signatures
[2025-01-14 11:23] LABS: Alanine Aminotransferase 64 U/L (6-35); Albumin Level 4.4 g/dL (3.5-5.1); Alkaline Phosphatase 102 U/L (38-126); Anion Gap 15 mmol/L (4-12); Aspartate Amino Transferase 82 U/L (14-36); Bilirubin,Total 0.5 mg/dL (0.2-1.3); Blood Urea Nitrogen 11 mg/dL (7-17); Calcium 9.0 mg/dL (8.4-10.2); Carbon Dioxide 23 mmol/L (22-30); Chloride 99 mmol/L (98-107); Estimated Glomerular Filt Rate > 60; Glucose 101 mg/dL (65-110); Potassium 3.4 mmol/L (3.4-5.0); Sodium 137 mmol/L (137-145); Total Protein 8.1 g/dL (6.3-8.2)
[2025-01-14 11:53] LABS: Thyroid Stimulating Hormone 2.940 uIU/mL (0.465-4.680)
[2025-01-14 13:02] LABS: MALB Creatinine Ratio 484.3 mg/g (0-30)
== END 2025-01-14 07:53 | disposition home or self-care (01) ==
PROVIDERS: PCP Internal Medicine; Visit Provider Nurse Practitioner
DX: R55 Syncope and collapse (principal); R60.9 Edema, unspecified; F10.20 Alcohol dependence, uncomplicated
CPT/HCPCS: 36415; 80053; 82043; 84443; 93017; 93306; 93880

== ENCOUNTER 2025-05-19 10:58 | Outpatient (CLI) | payer OTHER, SELFPAY ==
--- OUTSIDE RECORDS SUMMARY | 2025-05-19 13:07 | XMS_ITS | Patient Health Record ---
Author Organization [facility] As [employer] Address [address] [facility] [address] [place] [address] Care Team Providers Care Charge Entry Clerk Name Role Phone Abhinav De Oliveira Unavailable [phone] Reason For Referral No Information Medications Medication SIG (Take, Route, Frequency, Duration) Notes Start Date End Date Status Vivitrol 380 mg Suspension Reconstituted Intramuscular 06/19/2023 Active Pantoprazole Sodium 40 MG Tablet Delayed Release Oral 06/19/2023 Activ e Escitalopram Oxalate 10 MG Tablet Oral 06/19/2023 Active Amitriptyline HCl 25 MG Tablet Oral 06/19/2023 Active Naltrexone HCl 50 MG Tablet Oral 06/19/2023 Active DULoxetine HCl 30 MG Capsule Delayed Release Particles Oral 06/19/2023 Ac tive chlordiazePOXIDE HCl 25 MG Capsule Oral 06/19/2023 Active hydrOXYzine Pamoate 50 MG Capsule Oral 06/19/2023 Active Meloxicam 15 MG Tablet Oral 06/19/2023 Active Folic Acid 1 MG Tablet Oral 06/19/2023 Active DULoxetine HCl 60 MG Capsule Delayed Release Particles Oral 06/19/2023 Ac tive Amitriptyline HCl 50 MG Tablet Oral 06/19/2023 Active Social History Social History Additional Details Category Social Info Options Details Migrated Social History Migrated Social History Alcohol Intake: Heavy 05/18/2020,Tobacco Years: Never smoker 05/18/2020,Smoking Status: 0 05/18/2020 Plan Of Treatment No Information Insurance Providers Payer Name Payer Address Payer Phone Subscriber Number Group Number Insured Name Patient Relationship to Insured Coverage Start Date Coverage End Date [facility] [address] [place] [address] [id number] JORDEN MCDONALD Self - patient is the insured Medical (General) History Surgical History Surgery Date(Month/Year) Excision of colon ([id number]) 1998
[2025-05-19 13:08] LABS: Hematocrit 41.2 % (37.0-47.0); Hemoglobin 13.3 g/dL (12.0-15.0); Immature Granulocyte Percent A 0.3 % (0-0.5); Lymphocytes Absolute Auto 1.50 K/mm3 (0.9-3.2); Mean Corpuscular HGB Conc 32.3 g/dl (32-36); Mean Corpuscular Hemoglobin 30.4 pg (26-34); Mean Corpuscular Volume 94.3 fl (80-100); Nucleated Red Blood Cells Absolute Auto 0.000 K/mm3 (0.0-0.012); Nucleated Red Blood Cells Perc 0.0 % (0.0-0.2); Platelet Count Result 338 k/mm3 (150-375); Red Blood Count 4.37 M/mm3 (4.2-5.4); White Blood Count 9.0 K/mm3 (4.5-10.0)
--- OUTSIDE RECORDS SUMMARY | 2025-05-19 13:08 | XMS_ITS | Encounter Summary ---
Author Organization [facility] Address [facility] [place] [address] Care Team Providers Care Funding Specialist Name Role Phone Sachin Nguyen DO Primary Care Provider [phone] Encounter Details Date Type Department Care Team (Late st Contact Info) Description 01/17/2019 Hospital Follow-up Call [facility] Telemetry Unit [address] [place] [address] Lara Pastrana Social History Tobacco Use Types Packs/Day Years Used Date Smoking Tobacco: Never Smokeless Tobacco: Never Alcohol Use Standard Drinks/Week Comments Yes 0 (1 standard drink = 0.6 oz pur e alcohol) Daily Comments No Sex and Gender Information Value Date Recorded Sex Assigned at Female 02/14/2022 5:52 PM CDT Legal Sex Female 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
--- OUTSIDE RECORDS SUMMARY | 2025-05-19 13:08 | XMS_ITS | Encounter Summary ---
Author Organization [facility] Address 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
--- OUTSIDE RECORDS SUMMARY | 2025-05-19 13:08 | XMS_ITS | Clinical Summary ---
Demographics Address [address] [place] [address] [address] [place] [address] Home Phone Email Address Preferred Language Unknown Marital Status Voodoo Affiliation Unknown Race White Ethnic Group Unknown Author Organization [facility] Address [address] [place] [address] [place] [address] Care Team Providers Care Roof Truss Builder Name Role Phone Unavailable Primary Care Provider [...] Encounters Date Type Department Care Team Description 02/17/2025 External Device Data STL ABSTRACTION Provider, Abstract [...] on file Legal Sex Female 3:41 AM GLASS FITTER Gender Identity Not on file Sexual Orientation [...] Health Maintenance Due Date Last Done Comments DTAP/TDAP/TD VACCINES (1 - Tdap) 1984 HPV/Cotest (21-29) 1986 CERVICAL CANCER SCREENING 1995 HPV/Cotest (30-65) 1995 PAP SMEAR 1995 BREAST CANCER SCREENING 2005 COLORECTAL SCREENING 2010 Colorectal Cancer Screening 2010 FIT-DNA Q 3 years 2010 FIT/FOBT Q 1 year 2010 Flex Sig/CT Colonography Q 5 years 2010 ZOSTER VACCINE (1 of 2) 2015 INFLUENZA VACCINE (#1) 2025 RSV VACCINE (60+ or ) (1 - 1-dose 75+ series) 2040 HEPATITIS B VACCINES Aged Out No long er eligible based on patient's age to complete this topic Insurance BCBS BLUE ACCESS/TRUE BLUE PPO [employer] BLUE ACCESS/TRUE BLUE PPO Advance Directives For more information, please contact: [phone] * Full Code (Latest Code Status on File) Date Activated Date Inactivated Comments 05/01/2013 5:12 PM 05/02/2013 3:24 PM
--- OUTSIDE RECORDS SUMMARY | 2025-05-19 13:08 | XMS_ITS | Encounter Summary ---
Author Organization [facility] Address [address] [place] [address] Care Team Providers Care Glass Cutter Name Role Phone Sachin Nguyen DO Primary Care Provider Unavailable Encounter Details Date Type Department Care Team (Late st Contact Info) Description 08/10/2008 Outpatient Historical HIS [facility] Juan Arambula MD [address] [facility] [address] [place] [address] Nausea with Vomiting Social History Tobacco Use Types Packs/Day Years Used Date Smoking Tobacco: Never Assessed Comments Unknown Sex and Gender Information Value Date Recorded Sex Assigned at Not on file Legal Sex Female 3:41 AM ARTILLERY OFFICER Gender Identity Not on file Sexual Orientation Not on file documented as of this encounter Plan of Treatment Not on file documented as of this encounter Procedures Procedure Name Priority Date/Time Associated Diagnosis Comments US ABDOMEN LIMITED Timed Study 08/10/2008 8: 43 AM ARTILLERY OFFICER documented in this encounter Results * US ABDOMEN LIMITED (08/10/2008 8:43 AM ARTILLERY OFFICER) Anatomical Region Laterality Modality Abdomen Other 08/10/2008 8:43 AM ARTILLERY OFFICER Narrative 08/10/2008 3:10 PM ARTILLERY OFFICER [facility] [address], [place] [address] Admit Date: 08/10/2008 JORDEN SOL Sex: F Admit Prov: JUAN ARAMBULA Date: 1965 Primary Care Prov: PCP , NONE CMRN: [id number] [facility] SSN: [id number] IMAGING SERVICES Ordering Prov: N/A Accession Number: [id number] Interpretation ULTRASOUND ABDOMEN LIMITED, 08/10/2008 Clinical History: [...] SMM Procedure Note Provider, Historical - 08/10/2008 [facility] [address] [place], [place] [address] Admit Date: 08/10/2008 JORDEN SOL Sex: F Admit Prov: JUAN ARAMBULA Date: 1965 Primary Care Prov: PCP , NONE CMRN: [id number] [facility] SSN: [id number] IMAGING SERVICES Ordering Prov: N/A Interpretation ULTRASOUND [...] CHYNA ALMEIDA 08/10/2008 15:09 Transcribed: 08/10/2008 13:10 [facility] us Juan Arambula MD ORDERABLES Final Result documented in this encounter Visit Diagnoses Diagnosis Nausea with vomiting documented in this encounter Care Teams Glass Cutter Relationship Specialty Start Date End Date Sachin Nguyen DO PCP - General Internal Medicine 05/01/13 documented as of this encounter
--- OUTSIDE RECORDS SUMMARY | 2025-05-19 13:08 | XMS_ITS | Encounter Summary ---
Author Organization [facility] Address [address] [place] [address] Care Team Providers Care Drying Tunnel Operator Name Role Phone Sachin Nguyen DO Primary Care Provider Unavailable Encounter Details Date Type Department Care Team (Late st Contact Info) Description 11/17/2004 [facility] [address] [place] [address] SURGERY FOLLOWUP, OTHER (Primary Dx) Social History Tobacco Use Types Packs/Day Years Used Date Smoking Tobacco: Never Assessed Comments Unknown Sex and Gender Information Value Date Recorded Sex Assigned at Not on file Legal Sex Female 3:41 AM SUPPLY CLERK Gender Identity Not on file Sexual Orientation Not on file documented as of this encounter Plan of Treatment Not on file documented as of this encounter Visit Diagnoses Diagnosis Follow-up examination, following other surgery- Primary documented in this encounter Care Teams Drying Tunnel Operator Relationship Specialty Start Date End Date Sachin Nguyen DO PCP - General Internal Medicine 05/01/13 documented as of this encounter
--- OUTSIDE RECORDS SUMMARY | 2025-05-19 13:08 | XMS_ITS | Encounter Summary ---
Author Organization [facility] Address [address] [place] [address] Care Team Providers Care Senior Outside Sales Representative Name Role Phone Sachin Nguyen DO Primary Care Provider Unavailable Encounter Details Date Type Department Care Team (Late st Contact Info) Description 08/12/2008 Outpatient Historical [facility] Juan Arambula MD [address] [facility] [place] [address] Abdominal Pain, Epigastric Social History Tobacco Use Types Packs/Day Years Used Date Smoking Tobacco: Never Assessed Comments Unknown Sex and Gender Information Value Date Recorded Sex Assigned at Not on file Legal Sex Female 3:41 AM TRANSMISSION SYSTEMS OPERATOR Gender Identity Not on file Sexual Orientation Not on file documented as of this encounter Plan of Treatment Not on file documented as of this encounter Procedures Procedure Name Priority Date/Time Associated Diagnosis Comments XR SMALL BOWEL Timed Study 08/12/2008 8:50 AM TRANSMISSION SYSTEMS OPERATOR documented in this encounter Results * XR SMALL BOWEL (08/12/2008 8:50 AM TRANSMISSION SYSTEMS OPERATOR) Anatomical Region Laterality Modality Abdomen Other 08/12/2008 8:50 AM TRANSMISSION SYSTEMS OPERATOR Narrative 08/13/2008 7:47 AM TRANSMISSION SYSTEMS OPERATOR [address] [place], [place] [address] Admit Date: 08/12/2008 JORDEN SOL Sex: F Admit Prov: JUAN ARAMBULA Date: 1965 Primary Care Prov: CMRN: [id number] [id number] [facility] Ordering Prov: N/A Accession Number: [id number] Interpretation SMALL BOWEL SERIES 08/12/2008 Clinical history: Mid epigastric abdominal pain, previous colectomy. Findings: A preliminary abdominal crystal evaluator radiograph is not remarkable. Following oral administration [...] Procedure Note Percy Franco MD - 08/13/2008 [facility] [address] [place], [place] [address] Admit Date: 08/12/2008 JORDEN SOL Sex: F Admit Prov: JUAN ARAMBULA Date: 1965 Primary Care Prov: CMRN: [id number] [facility] [id number] IM[facility] Ordering Prov: N/A Interpretation SMALL BOWEL SERIES 08/12/2008 Clinical history: Mid epigastric abdominal pain, previouscolectomy. Findings: A preliminary abdominal crystal evaluator radiograph is notremarkable. Following oral administration of [...] epigastric documented in this encounter Care Teams Senior Outside Sales Representative Relationship Specialty Start Date End Date Sachin Nguyen DO PCP - General Internal Medicine 05/01/13 documented as of this encounter
--- OUTSIDE RECORDS SUMMARY | 2025-05-19 13:08 | XMS_ITS | Encounter Summary ---
Author Organization [facility] Address [address] [place] [address] Care Team Providers Care Model Maker Fiberglass Name Role Phone Sachin Nguyen DO Primary Care Provider [phone] Encounter Details Date Type Department Care Team (Late st Contact Info) Description 01/30/2018 Hospital Follow-up Call [facility] Med/Surg [address] [place] [address] Angélica Andino, RN Social History Tobacco Use Types Packs/Day Years Used Date Smoking Tobacco: Never Smokeless Tobacco: Never Alcohol Use Standard Drinks/Week Comments Yes 0 (1 standard drink = 0.6 oz pur e alcohol) social Comments No Sex and Gender Information Value Date Recorded Sex Assigned at Female 02/14/2022 5:52 PM CDT Legal Sex Female 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
--- OUTSIDE RECORDS SUMMARY | 2025-05-19 13:08 | XMS_ITS | Patient Health Record ---
Author Organization [employer] Address [address] [facility] [address] [place] [address] Care Team Providers Care Food Manager Name Role Phone Sachin Nguyen DO Primary Care Provider Dane Juan Rubio Unavailable [phone] Reason For Referral No Information Medications Medication SIG (Take, Route, Frequency, Duration) Notes Start Date End Date Status Fenofibrate Active Cymbalta Active Desipramine HCl 10 MG 1 tablet Orally On ce a day; Duration: 30 day(s) Unknown Lopreeza Active Omeprazole Unknown Ibuprofen Unknown Lopreeza Active Dexilant 60 MG 1 capsule Orally Onc e a day; Duration: 30 day(s) Unknown Protonix 40 MG 1 tablet Orally Once a day Active Esomeprazole Magnesium 40 MG 1 capsule Orally Once a day; Duration: 30 day(s) 12/04/2016 Unknown Social History Tobacco Use: Social History Observation Description Date Details (start date - stop date) Never Smoker NA - NA Tobacco Use/Smoking Question Answer Notes Are you a nonsmoker Problems Problem Type SNOMED Code ICD Code Onset Dates Problem Status W/U Status Risk Notes Problem Slow transit constipation (28185141) Slow transit constipation (K59.01) Active confirmed Problem Right upper quadrant pain (008686573) Right upper quadrant pain (R10.11) Active confirmed Problem Epigastric pain (22456802) Epigastric pain (R10.13) Active confirmed Problem Fatty liver (961983088) Fatty liver (K76.0) Active confirmed Problem Colon cancer screening (719027698) Colon cancer screening (Z12.11) Active confirmed Problem Nausea and vomiting (37537709) Nausea and vomiting (R11.2) Active confirmed Problem Liver disease (808233970) Hepatic lesion (K76.9) Active confirmed Plan Of Treatment Pending Test Test Name Order Date Flexible Sigmoidoscopy 11/27/2016 Insurance Providers Payer Name Payer Address Payer Phone Subscriber Number Group Number Insured Name Patient Relationship to Insured Coverage Start Date Coverage End Date Blue Access PPO E2 [address] [place] [address] [id number] Rama Sol Self - patient is the insured Medical (General) History Medical History History ICD Code Ulcers GERD Fatty liver disease Bacterial overgrowth 2014- negative Surgical History Surgery Date(Month/Year) Flexible sigmoidoscopy 11/2016 Upper GI Endoscopy 12/2014 Colectomy 2003 Sinus surgery
--- OUTSIDE RECORDS SUMMARY | 2025-05-19 13:08 | XMS_ITS | Clinical Summary ---
Author Organization [facility] Address [address] [place] [address] Care Team Providers Care Facilities Technician Name Role Phone Sachin Nguyen DO Primary Care Provider Allergies No known active allergies Medications fenofibrate (TRIGLIDE) 160 mg tablet Take 1 tablet (160 mg total) by mouth every morning 07/13/20 23 Active amitriptyline (ELAVIL) 50 mg tablet Take 2 tablets (100 mg total) by mouth nightly 07/13/20 23 Active hydrOXYzine (ATARAX) 50 mg tablet TAKE 2 TABLETS BY MOUTH DAILY NEEDED FOR ANXIETY 08/22/19 24 Active pregabalin (LYRICA) 100 mg capsule Take 1 capsule (100 mg total) by mouth 2 (two) times a day Active acetaminophen (TYLENOL) 325 mg tabletIndications: Fever,Pain Take 2 tablets (650 mg total) by mouth every 4 (four) hours as needed for pain, headaches or fever 05/18/20 24 Active amLODIPine (NORVASC) 5 mg tabletIndications: hypertension Take 1 tablet (5 mg total) by mouth daily 05/19/20 24 Active atorvastatin (LIPITOR) 20 mg tablet Take 1 tablet (20 mg total) by mouth daily 05/19/20 24 Active cetirizine (ZyrTEC) 10 mg tabletIndications: Allergic Rhinitis Take 1 tablet (10 mg total) by mouth daily 05/19/20 24 Active magnesium oxide (MAG-OX) 400 mg (241.3 mg elemental magnesium) tabletIndications: hypomagnesemia Take 2 tablets (800 mg total) by mouth 2 (two) times a day 05/18/20 24 Active miconazole 2 % powder Apply topically 2 (two) times a day 05/18/[address] (PROTONIX) 40 mg EC tabletIndications: Treatment of Non-Bleeding Gastric Disorder Take 1 tablet (40 mg total) by mouth daily 05/19/20 24 Active al & mag hydroxide simethicone-diphen hydramine-lidocain e-nystatin (MAGIC MOUTHWASH) suspension Swish and spit 15 mL every 4 (four) hours as needed (mucositis) 05/18/[address] (CYMBALTA) 60 mg capsule Take 1 capsule (60 mg total) by mouth daily Active ergocalciferol (VITAMIN D) 50,000 unit capsule Take 1 capsule (50,000 Units total) by mouth once a week 8 capsule 08/13/19 25 Active benzocaine-menthoL (CHLORASEPTIC) 6-10 mg lozenge Take 1 lozenge by mouth every 4 (four) hours as needed for sore throat 100 tablet 1 08/13/19 25 Active chlordiazePOXIDE (LIBRIUM) 25 mg capsuleIndications :Alcohol Withdrawal Assessment Scale score Take 1 capsule (25 mg total) by mouth 3 (three) times a day as needed for withdrawal symptoms for up to 7 days 21 capsule 08/13/19 25 Active folic acid (FOLVITE) 1 mg tabletIndications: Treatment of known or suspected Wernicke's Encephalopathy Take 1 tablet (1 mg total) by mouth daily for 2 doses 2 tablet 08/14/19 25 Active naltrexone (DEPADE) 50 mg tablet Take 1 tablet (50 mg total) by mouth daily 30 tablet 11 08/13/19 25 026 Active thiamine (VITAMIN B1) 100 mg tablet Take 1 tablet (100 mg total) by mouth daily 30 tablet 11 08/13/19 25 026 Active sodium chloride (OCEAN) 0.65 % nasal spray Administer 2 sprays into each nostril every hour as needed for congestion 05/18/20 24 025 Active Problems Problem Noted Date Diagnosed Date [...] (HCC) 08/03/2022 Substance abuse (HCC) 02/2022 Depression 2018 Vertigo 2013 PONV (postoperative nausea and vomiting) nausea only [...] experiencing loneliness or isolatio n Rarely 05/19/2024 [facility] Utilities Answer Date Recorded In the past 12 months has th e electric, gas, oil, or water company threatened to shut off services in your home? No 08/11/2024 Social Connection and Isolation Panel Answer Date Recorded In a typical week, how many times do you talk on the phone with family, friends, or neighbors? More than three times a week 08/11/2024 How often do you get togethe r with friends or relatives? More than three times a week 08/11/2024 How often do you attend chur ch or mosque services? Never 08/11/2024 Do you belong to any clubs o r organizations such as restoration groups, unions, fraternal or athletic groups, or [...] place to sleep or slept in a fdc (including now)? No 07/10/2023 PHQ-9 Answer Date [...] any time in the past 12 m [facility], were you homeless or living in a fdc (including now)? No 08/11/2024 Personal Safety Answer Date Recorded Have you ever been in or are you currently in a harmful physical or emotional relationship or is someone making you feel afraid or unsafe? Denies 08/10/2024 Comments No Sex and Gender Information Value Date Recorded Sex Assigned at Not on file Legal Sex Female 3:57 AM DRY MOP MAKER Gender Identity Female 09/27/2023 5:34 PM CDT Sexual Orientation Straight 01/27/2024 10 :28 AM CDT Last Filed Vital Signs Vital Sign Reading Time Taken Comments Blood Pressure 136/91 08/13/2024 12:26 PM DRY MOP MAKER Pulse 73 08/13/2024 12:26 PM DRY MOP MAKER Temperature 36.5 C (97.7 F) 08/13/2024 12:26 PM DRY MOP MAKER Respiratory Rate 18 08/13/2024 12:26 PM DRY MOP MAKER Oxygen Saturation 98% 08/13/2024 12:26 PM DRY MOP MAKER Inhaled Oxygen Concentration - - Weight 88.1 kg (194 lb 4.8 oz) 08/10/2024 9:36 P M DRY MOP MAKER Height 170.2 cm (5' 7) 08/10/2024 9:36 PM DRY MOP MAKER Body Mass Index 30.43 08/10/2024 9:36 PM DRY MOP MAKER Plan of Treatment Health Maintenance Due Date Last Done Comments Breast Cancer Screening-Mammogram 1965 Cervical Cancer Screening 1965 Colon Cancer Screening-Colonoscopy 1965 DTaP/Tdap/Td Vaccine (1 - Tdap) 1976 Hepatitis B Screening 1983 Regular Well Visit/Exam 18-64 1983 Pneumococcal vaccine <65 (1 of 2 - PCV) 1984 Zoster Vaccine (1 of 2) 2015 Influenza Vaccine (#1) 2025 Depression Screening 05/03/2025 05/03/2024, 05/03/20 Hepatitis C Screening Completed 05/04/2024 Medical Devices Implanted Type Area Traffic Ii Manager Device Identifier Shelf Expiration Date Model / Serial / Lot Breast-08/04/19 18 Implanted:07/17 (Quantity not on file) Breast Bilateral: Breast Synthes 3.5mm 6mm 28mm 2.5mm Self Tap Small Hexagonal Socket Low Profile 204.828 - [id number] Implanted:Qty: 1 on 09/11/2023 by Berta Avalos MD at [facility] Left: Arm Synthes I 204.828 / / Synthes 3.5mm 2.9mm 28mm Self Tap Lock Stardrive Conical Head T15 Full 212.110 - [id number] Implanted:Qty: 2 on 09/11/2023 by Berta Avalos MD at [facility] Left: Arm Synthes I 212.110 / / Synthes 3.5mm 6mm 24mm 2.5mm Self Tap Small Hexagonal Socket Low Profile 204.824 - [id number] Implanted:Qty: 1 on 09/11/2023 by Berta Avalos MD at [facility] Left: Arm Synthes I 204.824 / / Synthes Lcp 67mm 7 Hole Low Profile Cut To Length Plate Bone Stainless 249.683 - [id number] Implanted:Qty: 1 on 09/11/2023 by Berta Avaols MD at [facility] Left: Arm Synthes I 249.683 / / Synthes 2.7mm 5mm 34mm 2.5mm Self Tap St[employer]rive Cortical T8 Screw Bone 202.894 - [id number] Implanted:Qty: 2 on 09/11/2023 by Berta Avalos MD at [facility] Left: Arm Synthes I 202.894 / / Synthes 2.7mm 5mm 36mm 2.5mm Self Tap St[employer]rive Cortical T8 Screw Bone 202.896 - [id number] Implanted:Qty: 1 on 09/11/2023 by Berta Avalos MD at [facility] Left: Arm Synthes I 202.896 / / Synthes 2.7mm 5mm 28mm 2.5mm Self Tap St[employer]rive Cortical T8 Screw Bone 202.888 - [id number] Implanted:Qty: 1 on 09/11/2023 by Berta Avalos MD at [facility] Left: Arm Synthes I 202.888 / / Synthes Lcp Combi [id number] 12 Hole Limit Contact Taper End Plate Bone 223.621 - [id number] Implanted:Qty: 1 on 09/11/2023 by Berta Avalos MD at [facility] Left: Arm Synthes I 223.621 / / Synthes 3.5mm 6mm 26mm 2.5mm Self Tap Small Hexagonal Socket Low Profile 204.826 - [id number] Implanted:Qty: 1 on 09/11/2023 by Berta Avalos MD at [facility] Left: Arm Synthes I 204.826 / / Synthes 3.5mm 6mm 32mm 2.5mm Self Tap Small Hexagonal Socket Low Profile 204.832 - [id number] Implanted:Qty: 1 on 09/11/2023 by Berta Avalos MD at [facility] Left: Arm Synthes I 204.832 / / Synthes 3.5mm 6mm 22mm 2.5mm Self Tap Small Hexagonal Socket Low Profile 204.822 - [id number] Implanted:Qty: 1 on 09/11/2023 by Berta Avalos MD at [facility] Left: Arm Synthes I 204.822 / / [...] CDT 05/04/2024 6:52 PM CDT Sintia Shi NP LAB MICROBIOLOGY - GENERAL O RDERABLES Final Result [facility] [address] [facility] Department [place] [address] from Last 3 Months or Most Recently Relevant to Health Maintenance Insurance [employer] ACCESS OOS Advance Directives For more information, please contact: [phone] Documents on File Type Date Recorded Patient Re Dye Hand Expl anation ADVANCE DIRECTIVE 08/11/2024 2:35 PM Power of Post Office Manager-Medical ADVANCE DIRECTIVE 02/07/2024 2:35 PM Power of Post Office Manager-Medical * Full Code (Latest Code Status on [...] 9:52 PM 05/25/2023 2:09 PM Care Teams Facilities Technician Relationship Specialty Start Date End Date Sachin Nguyen DO PCP - General 08/11/15
--- OUTSIDE RECORDS SUMMARY | 2025-05-19 13:08 | XMS_ITS | Clinical Summary ---
Author Organization [facility] Address [address] [facility] [place] [address] Care Team Providers Care Batch Records Clerk Name Role Phone Sachin Nguyen DO Primary Care Provider Source Comments [facility],non-owned Affiliates and Associated Physician Practices is amultiple site organization consisting of ambulatory clinics and hospital sitesin [place], [place], [place] and [place]. This disclosure is being madepursuant to the Care Everywhere program and may not contain all information available regarding this patient. Last updated 18.[facility] Allergies Active Allergy Reactions Criticality Noted Date [...] on file Legal Sex Female 6:19 AM TEXTILE PIN WORKER Gender Identity Not on file Sexual Orientation Not on file Last Filed Vital Signs Vital Sign Reading Time Taken Comments Blood Pressure 128/85 07/10/2019 7:10 AM TEXTILE PIN WORKER Pulse 82 07/10/2019 7:10 AM TEXTILE PIN WORKER Temperature 36.6 C (97.9 F) 07/10/2019 7:10 AM TEXTILE PIN WORKER Respiratory Rate 18 07/10/2019 7:10 AM TEXTILE PIN WORKER Oxygen Saturation 100% 07/10/2019 7:10 AM TEXTILE PIN WORKER Inhaled Oxygen Concentration - - Weight 74.4 kg (164 lb) 07/10/2019 10:31 AM TEXTILE PIN WORKER Height 172.7 cm (5' 8) 07/10/2019 10:31 AM TEXTILE PIN WORKER Body Mass Index 24.94 07/10/2019 10:31 AM TEXTILE PIN WORKER Plan of Treatment Health Maintenance Due Date Last Done Comments COLOGUARD (AGES 45-75) - COL ON CA SCREENING 1965 COLON MONITORING 1965 COLONOSCOPY - COLON CA SCREENING 1965 CT COLONOGRAPHY - COLON CA SCREENING 1965 Colorectal Cancer Screening 1965 FIT - COLON CA SCREENING 1965 FLEX SIG - COLON CA SCREENING 1965 MAMMOGRAM 1965 HIV SCREENING 1980 HEPATITIS C SCREENING 03/16/1983 DTAP/TDAP/TD VACCINES (1 - Tdap) 1984 PAP SMEAR 1986 PNEUMOCOCCAL VACCINE 50+ (1 of 1 - PCV) 2015 ZOSTER VACCINE (1 of 2) 2015 LIPID TESTING 06/27/2024 06/27/2019, 01/10/2019 DEPRESSION SCREENING 07/16/2024 COVID-19 VACCINE (1 - 2023-2 5 season) 2025 INFLUENZA VACCINE (#1) 2025 Respiratory Syncytial Virus (RSV) Vaccine Pt: or over 60 yrs (1 - 1-dose 75+ series) 2040 HEPATITIS B VACCINE Aged Out No longe r eligible based on patient's age to complete this topic HIB VACCINE Aged Out No longer eligi [...] LIPID PROFILE AM Draw 06/27/2019 5:44 AM TEXTILE PIN WORKER from Last 3 Months or Most Recently Relevant to Health Maintenance Results * (ABNORMAL) LIPID PROFILE (06/27/2019 5:44 AM TEXTILE PIN WORKER) Cholesterol 225(H) <200 mg/dL 06/27/2019 6:18 AM [facility] Triglycerides 52 <150 mg/dL 06/27/2019 6:18 AM [facility] HDL Cholesterol 104 >40 mg/dL 9 6:18 AM [facility] LDL Calculated 111 <130 mg/dL 06/27/2019 6:18 AM [facility] VLDL Calculated 10 <=30 mg/dL 9 6:18 AM [facility] Chol HDL Ratio 2.2 <4.5 06/27/2019 6:18 AM [facility] LDL/HDL Ratio 1.1 <5.0 06/27/2019 6:18 AM [facility] Blood BLOOD SPECIMEN / Unknown Lab Venipuncture / Unknown 06/27/2019 5:44 AM TEXTILE PIN WORKER 06/27/2019 5:48 AM TEXTILE PIN WORKER us Peter Baez MD LAB - CHEMISTRY ORDERABLES Fin al Result [facility] [address] [place] [address] from Last 3 Months or Most Recently Relevant to Health Maintenance Advance Directives * Full Code (Latest Code Status on File) Date Activated Date Inactivated Comments 06/26/2019 12:15 PM 07/10/2019 5:02 PM * Full Code Date Activated Date Inactivated Comments 01/09/2019 12:03 PM 01/22/2019 7:13 PM Care Teams Batch Records Clerk Relationship Specialty Start Date End Date Sachin Nguyen DO PCP - General Internal Medicine 08/08/16
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
--- OUTSIDE RECORDS SUMMARY | 2025-05-19 13:08 | XMS_ITS | Encounter Summary ---
Author Organization [employer] Address [address] [place] [address] Care Team Providers Care Annual Giving Manager Name Role Phone Neida Nguyen DO Primary Care Provider Unavailable Encounter Details Date Type Department Care Team (Late st Contact Info) Description 07/02/2008 Outpatient Historical [facility] [place], Authorized P NO ADDRESS ON FILE Leoncio Pham MD [address] [place] [address] Farrah Corbin [place] [id number] [address] Unspecified Intestinal Obstruction (CMS/HCC) Social History Tobacco Use Types Packs/Day Years Used Date Smoking Tobacco: Never Assessed Comments Unknown Sex and Gender Information Value Date Recorded Sex Assigned at Not on file Legal Sex Female 3:41 AM PHARMACOEPIDEMIOLOGIST Gender Identity Not on file Sexual Orientation Not on file documented as of this encounter Plan of Treatment Not on file documented as of this encounter Procedures Procedure Name Priority Date/Time Associated Diagnosis Comments CBC WITH DIFFERENTIAL Routine 07/04/2008 6:45 AM PHARMACOEPIDEMIOLOGIST BASIC METABOLIC PANEL Routine 07/04/2008 6:45 AM PHARMACOEPIDEMIOLOGIST XR SMALL BOWEL Routine 07/03/2008 8:05 AM PHARMACOEPIDEMIOLOGIST CBC WITH DIFFERENTIAL Routine 07/03/2008 4:55 AM PHARMACOEPIDEMIOLOGIST C-REACTIVE PROTEIN Timed Study 07/03/2008 4: 55 AM PHARMACOEPIDEMIOLOGIST BASIC METABOLIC PANEL Routine 07/03/2008 4:[address] ABDOMEN PELVIS W CONTRAST Stat 07/02/2008 8:11 PM PHARMACOEPIDEMIOLOGIST URINALYSIS WITH REFLEX CULTURE Stat 07/02/2008 5:56 PM PHARMACOEPIDEMIOLOGIST URINALYSIS W/REFLEX MICROSCOPIC Stat 07/02/2008 5:56 PM PHARMACOEPIDEMIOLOGIST CBC WITH DIFFERENTIAL Stat 07/02/2008 5:40 PM PHARMACOEPIDEMIOLOGIST C-REACTIVE PROTEIN Stat 07/02/2008 5: 40 PM PHARMACOEPIDEMIOLOGIST LIPASE Stat 07/02/2008 5:40 PM PHARMACOEPIDEMIOLOGIST AMYLASE Stat 07/02/2008 5:40 PM PHARMACOEPIDEMIOLOGIST COMPREHENSIVE METABOLIC PANEL Stat 07/02/2008 5:40 PM PHARMACOEPIDEMIOLOGIST documented in this encounter Results * (ABNORMAL) BASIC METABOLIC PANEL (07/04/2008 6:45 AM PHARMACOEPIDEMIOLOGIST) CALCIUM 9.1 8.6 - 10.2 mg/dL [facility] CO2 26 22 - 30 mmol/L [facility] POTASSIUM 4.2 3.5 - 4.9 mmol/L [facility] GLUCOSE 106(H) 65 - 99 mg/dL [facility] BUN 3(L) 6 - 20 mg/dL [facility] CHLORIDE 102 96 - 108 mmol/L [facility] CREATININE 0.63 0.51 - 0.95 mg/dL [facility] SODIUM 136 135 - 145 mmol/L [facility] GFR, >60 >=60 mL/min/1. 7 sq meter [facility] GFR >60 >=60 mL/min/1. 7 sq meter [facility] Comment: ansiModification of Diet in Renal Disease (MDRD) study formula. Estimated GFR rate interpretative information for both Americans and non- Americans is available on the [facility] Intranet at: [email or web address] Select: Lab Policies and Procedures Select: Reference Ranges - GFR Blood specimen (specimen) 07/04/2008 6:45 AM PHARMACOEPIDEMIOLOGIST 07/04/2008 7:34 AM PHARMACOEPIDEMIOLOGIST us Leoncio Pham MD CHEMISTRY ORDERABLES Edited INTERFACE SYSTEM Refer to clinic/hospital department [facility] CLIA# [id number] [address] [address] * (ABNORMAL) CBC WITH DIFFERENTIAL (07/04/2008 6:45 AM PHARMACOEPIDEMIOLOGIST) HEMATOCRIT 36.5 35.5 - 44.0 % [facility] RDW-STDEV 43.4 37.1 - 48.7 fL [facility] RBC 3.80(L) 3.90 - 4.90 M/uL [facility] MCHC 33.4 31.5 - 35.5 % [facility] MCV 96.1 82.0 - 99.0 fL [facility] PLATELETS 242 140 - 350 K/uL [facility] HEMOGLOBIN 12.2 11.8 - 14.8 g/dL [facility] RDW 12.6 11.5 - 14.5 % [facility] WBC 6.7 4.0 - 9.8 K/uL [facility] MCH 32.1 27.2 - 32.6 pg [facility] MPV 10.7 9.3 - 12.4 fL [facility] BASOPHILS 0 0 - 2 % [facility] BASOPHILS ABSOLUTE 0.01 0.00 - 0.20 K/uL [facility] MONOCYTES 12 3 - 13 % [facility] MONOCYTE ABSOLUTE 0.83 0.10 - 1.30 K/uL [facility] NEUTROPHILS 63 45 - 70 % [facility] NEUTROPHIL ABSOLUTE 4.25 1.90 - 7.00 K/uL [facility] EOSINOPHILS 5 0 - 7 % [facility] EOSINOPHIL ABSOLUTE 0.34 0.00 - 0.70 K/uL [facility] LYMPHOCYTES 19 16 - 45 % [facility] LYMPHOCYTE ABSOLUTE 1.30 0.70 - 4.50 K/uL [facility] Blood specimen (specimen) 07/04/2008 6:45 AM PHARMACOEPIDEMIOLOGIST 07/04/2008 7:34 AM PHARMACOEPIDEMIOLOGIST us Leoncio Pham MD HEMATOLOGY ORDERABLES Edited INTERFACE SYSTEM Refer to clinic/hospital department [facility] CLIA# [id number] [address] [facility] [place] [address] * XR SMALL BOWEL (07/03/2008 8:05 AM PHARMACOEPIDEMIOLOGIST) Anatomical Region Laterality Modality Abdomen Other 07/03/2008 8:05 AM PHARMACOEPIDEMIOLOGIST Narrative 07/03/2008 11:16 AM PHARMACOEPIDEMIOLOGIST [facility] [address] [place], [place] [address] Admit Date: 07/02/2008 JORDEN SOL Sex: F Admit Prov: LEONCIO PHAM Date: 1965 Primary Care Prov: PCP , NONE CMRN: [id number] Room: [address] [place] [address] SSN: [id number] IMAGING SERVICES Ordering Prov: N/A Accession Number: [id number] Interpretation Small bowel follow-through Jul 03, 2008 10:46:24 AM History: 43-year-old female with history of colonic resection with chronic abdominal pain. CT from the previous day suggested a small bowel obstruction. A phlebotomist radiograph reveals oral contrast in the rectum [...] 11:14 Procedure Note Neida Nj - 07/03/2008 [id number] [place], [place] [address] Admit Date: 07/02/2008 JORDEN SOL Sex: F Admit Prov: LEONCIO PHAM Date: 1965 Primary Care Prov: PCP , NONE CMRN: [id number] Room: [address] [place] [address] SSN: [id number] IMAGING SERVICES Ordering Prov: N/A Interpretation Small bowel follow-through Jul 03, 2008 10:46:24 AM History: 43-year-old female with history of colonic resection withchronic abdominal pain. CT from the previous day suggested a small bowel obstruction. A phlebotomist radiograph reveals oral contrast in the rectum [...] Result * C-REACTIVE PROTEIN (07/03/2008 4:55 AM PHARMACOEPIDEMIOLOGIST) Pathologist [facility] CRP <0.2 0.0 - 0.8 mg/dL [facility] Blood specimen (specimen) 07/03/2008 4:55 AM PHARMACOEPIDEMIOLOGIST 07/03/2008 5:48 AM PHARMACOEPIDEMIOLOGIST us Authorized P Er CHEMISTRY ORDERABLES Final Resul t INTERFACE SYSTEM Refer to clinic/hospital department [facility] CLIA# [id number] [address] [place] [address] * (ABNORMAL) BASIC METABOLIC PANEL (07/03/2008 4:55 AM PHARMACOEPIDEMIOLOGIST) Pathologist [facility] CALCIUM 8.9 8.6 - 10.2 mg/dL [facility] CO2 25 22 - 30 mmol/L [facility] CREATININE 0.64 0.51 - 0.95 mg/dL [facility] POTASSIUM 4.0 3.5 - 4.9 mmol/L [facility] BUN 7 6 - 20 mg/dL [facility] CHLORIDE 102 96 - 108 mmol/L [facility] GLUCOSE 148(H) 65 - 99 mg/dL [facility] SODIUM 137 135 - 145 mmol/L [facility] GFR, >60 >=60 mL/min/1. 7 sq meter [facility] GFR >60 >=60 mL/min/1. 7 sq meter [facility] Comment: Modification of Diet in Renal Disease (MDRD) study formula. Estimated GFR rate interpretative information for both Americans and non- Americans is available on the [facility] Intranet at: [email or web address] Select: Lab Policies and Procedures Select: Reference Ranges - GFR Blood specimen (specimen) 07/03/2008 4:55 AM PHARMACOEPIDEMIOLOGIST 07/03/2008 5:48 AM PHARMACOEPIDEMIOLOGIST us Authorized P Er CHEMISTRY ORDERABLES Edited INTERFACE SYSTEM Refer to clinic/hospital department [facility] CLIA# [id number] [address] [place] [address] * (ABNORMAL) CBC WITH DIFFERENTIAL (07/03/2008 4:55 AM PHARMACOEPIDEMIOLOGIST) MCV 93.8 82.0 - 99.0 fL [facility] PLATELETS 268 140 - 350 K/uL [facility] HEMOGLOBIN 12.6 11.8 - 14.8 g/dL [facility] RDW 12.4 11.5 - 14.5 % [facility] WBC 10.0(H) 4.0 - 9.8 K/uL [facility] MCH 32.3 27.2 - 32.6 pg [facility] MPV 11.0 9.3 - 12.4 fL [facility] HEMATOCRIT 36.6 35.5 - 44.0 % [facility] RDW-STDEV 42.3 37.1 - 48.7 fL [facility] RBC 3.90 3.90 - 4.90 M/uL [facility] MCHC 34.4 31.5 - 35.5 % [facility] EOSINOPHILS 2 0 - 7 % [facility] EOSINOPHIL ABSOLUTE 0.22 0.00 - 0.70 K/uL [facility] LYMPHOCYTES 18 16 - 45 % [facility] LYMPHOCYTE ABSOLUTE 1.79 0.70 - 4.50 K/uL [facility] BASOPHILS 0 0 - 2 % [facility] BASOPHILS ABSOLUTE 0.03 0.00 - 0.20 K/uL [facility] MONOCYTES 8 3 - 13 % [facility] MONOCYTE ABSOLUTE 0.83 0.10 - 1.30 K/uL [facility] NEUTROPHILS 71(H) 45 - 70 % [facility] NEUTROPHIL ABSOLUTE 7.15(H) 1.90 - 7.00 K/uL [facility] Blood specimen (specimen) 07/03/2008 4:55 AM PHARMACOEPIDEMIOLOGIST 07/03/2008 5:48 AM PHARMACOEPIDEMIOLOGIST us Authorized P Er HEMATOLOGY ORDERABLES Edited INTERFACE SYSTEM Refer to clinic/hospital department [facility] CLIA# [id number] [address] [place] [place] [address] * CT ABDOMEN PELVIS W CONTRAST (07/02/2008 8:11 PM PHARMACOEPIDEMIOLOGIST) Anatomical Region Laterality Modality Abdomen Other 07/02/2008 8:11 PM PHARMACOEPIDEMIOLOGIST Narrative 07/03/2008 1:34 AM PHARMACOEPIDEMIOLOGIST [facility] [address] [place], [place] [address] Admit Date: 07/02/2008 JORDEN SOL Sex: F Admit Prov: LEONCIO PHAM Date: 1965 Primary Care Prov: PCP , NONE CMRN: [id number] Room: [address] [place] [address] SSN: [id number] IMAGING SERVICES Ordering Prov: N/A Accession Number: [id number] Interpretation CT ABDOMEN AND PELVIS WITH INTRAVENOUS [...] Procedure Note William Katz MD - 07/03/2008 [facility] [address] [place], [place] [address] Admit Date: 07/02/2008 JORDEN SOL Sex: F Admit Prov: LEONCIO PHAM Date: 1965 Primary Care Prov: PCP , NONE CMRN: [id number] Room: [address] [place] [address] SSN: [id number] IMAGING SERVICES Ordering Prov: N/A Interpretation CT [...] Result * (ABNORMAL) URINALYSIS (07/02/2008 5:56 PM PHARMACOEPIDEMIOLOGIST) PH UA 5.0 5.0 - 8.0 [facility] KETONES UA Trace(A) Negative [facility] RBC UA <1 0 - 4 /HPF [facility] CLARITY UA Clear Clear [facility] PROTEIN UA Negative Negative [facility] BILIRUBIN UA Negative Negative [facility] LEUKOCYTE ESTERASE UA Negative Negative [facility] BACTERIA UA 1+(A) None Seen /HPF [facility] SPECIFIC GRAVITY UA 1.005 1.001 - 1.035 [facility] BLOOD UA Trace(A) Negative [facility] GLUCOSE UA Negative Negative [facility] COLOR UA Pale Yellow [facility] NITRITE UA Negative Negative [facility] UROBILINOGEN UA <1 <=1 mg/dL [facility] EPITHELIAL CELLS, URINE 2-5 /HPF [facility] 07/02/2008 5:56 PM PHARMACOEPIDEMIOLOGIST 07/02/2008 7:23 PM PHARMACOEPIDEMIOLOGIST Omid Young MD URINE ORDERABLES Final Resul t INTERFACE SYSTEM Refer to clinic/hospital department [facility] CLIA# [id number] [address] [place] [address] * URINALYSIS WITH REFLEX CULTURE (07/02/2008 5:56 PM PHARMACOEPIDEMIOLOGIST) URINE CULTURE ORDER Not indicated [facility] Comment: Criteria for a reflex culture include one or more of the following: Abnormal nitrite, leukocyte esterase, WBCs or RBCs. Lack of qualifying criteria does not exclude the possiblity of a urinary tract infection. Dilute urine, drug interference, etc. may decrease the sensitivity of the criteria analytes. Urine specimen (specimen) 07/02/2008 5:56 PM PHARMACOEPIDEMIOLOGIST 07/02/2008 7:23 PM PHARMACOEPIDEMIOLOGIST Omid Young MD URINE ORDERABLES Final Resul t Performing Organization Address [facility] Phone Number INTERFACE SYSTEM Refer to clinic/hospital department [facility] CLIA# [id number] [address] [place] [address] * LIPASE (07/02/2008 5:40 PM PHARMACOEPIDEMIOLOGIST) LIPASE 47 13 - 60 U/L [facility] Blood specimen (specimen) 07/02/2008 5:40 PM PHARMACOEPIDEMIOLOGIST 07/02/2008 6:01 PM PHARMACOEPIDEMIOLOGIST Omid Young MD CHEMISTRY ORDERABLES Final R esult Performing Organization Address [facility] Phone Number INTERFACE SYSTEM Refer to clinic/hospital department [facility] CLIA# [id number] [address] [place] [address] * C-REACTIVE PROTEIN (07/02/2008 5:40 PM PHARMACOEPIDEMIOLOGIST) CRP <0.2 0.0 - 0.8 mg/dL [facility] Blood specimen (specimen) 07/02/2008 5:40 PM PHARMACOEPIDEMIOLOGIST 07/02/2008 6:01 PM PHARMACOEPIDEMIOLOGIST Omid Young MD CHEMISTRY ORDERABLES Final R esult INTERFACE SYSTEM Refer to clinic/hospital department [facility] CLIA# [id number] [address] [place] [address] * (ABNORMAL) COMPREHENSIVE METABOLIC PANEL (07/02/2008 5:40 PM PHARMACOEPIDEMIOLOGIST) POTASSIUM 3.4(L) 3.5 - 4.9 mmol/L [facility] TOTAL PROTEIN 7.3 6.3 - 8.6 g/dL [facility] GLUCOSE 81 65 - 99 mg/dL [facility] AST 21 12 - 32 U/L [facility] BUN 10 6 - 20 mg/dL [facility] CALCIUM 9.7 8.6 - 10.2 mg/dL [facility] ALBUMIN 4.5 3.4 - 4.8 g/dL [facility] CHLORIDE 100 96 - 108 mmol/L [facility] CREATININE 0.66 0.51 - 0.95 mg/dL [facility] ALT 17 0 - 31 U/L [facility] SODIUM 136 135 - 145 mmol/L [facility] ALKALINE PHOSPHATASE 59 35 - 104 U/L [facility] CO2 23 22 - 30 mmol/L [facility] BILIRUBIN TOTAL 0.3 0.2 - 1.0 mg/dL [facility] GFR, >60 >=60 mL/min/1. 7 sq meter [facility] GFR >60 >=60 mL/min/1. 7 sq meter [facility] Comment: Modification of Diet in Renal Disease (MDRD) study formula. Estimated GFR rate interpretative information for both Americans and non- Americans is available on the [facility] Intranet at: [email or web address] Select: Lab Policies and Procedures Select: Reference Ranges - GFR Blood specimen (specimen) 07/02/2008 5:40 PM PHARMACOEPIDEMIOLOGIST 07/02/2008 6:01 PM PHARMACOEPIDEMIOLOGIST Omid Young MD CHEMISTRY ORDERABLES Edited INTERFACE SYSTEM Refer to clinic/hospital department [facility] CLIA# [id number] [address] [place] [address] * (ABNORMAL) CBC WITH DIFFERENTIAL (07/02/2008 5:40 PM PHARMACOEPIDEMIOLOGIST) RBC 3.75(L) 3.90 - 4.90 M/uL [facility] MCHC 35.0 31.5 - 35.5 % [facility] MCV 92.3 82.0 - 99.0 fL [facility] PLATELETS 277 140 - 350 K/uL [facility] HEMOGLOBIN 12.1 11.8 - 14.8 g/dL [facility] RDW 12.2 11.5 - 14.5 % [facility] WBC 7.7 4.0 - 9.8 K/uL [facility] MCH 32.3 27.2 - 32.6 pg [facility] MPV 10.8 9.3 - 12.4 fL [facility] HEMATOCRIT 34.6(L) 35.5 - 44.0 % [facility] RDW-STDEV 41.4 37.1 - 48.7 fL [facility] MONOCYTE ABSOLUTE 0.93 0.10 - 1.30 K/uL [facility] NEUTROPHILS 56 45 - 70 % [facility] NEUTROPHIL ABSOLUTE 4.32 1.90 - 7.00 K/uL [facility] EOSINOPHILS 5 0 - 7 % [facility] EOSINOPHIL ABSOLUTE 0.36 0.00 - 0.70 K/uL [facility] LYMPHOCYTES 27 16 - 45 % [facility] LYMPHOCYTE ABSOLUTE 2.08 0.70 - 4.50 K/uL [facility] BASOPHILS 1 0 - 2 % [facility] BASOPHILS ABSOLUTE 0.04 0.00 - 0.20 K/uL [facility] MONOCYTES 12 3 - 13 % [facility] Blood specimen (specimen) 07/02/2008 5:40 PM PHARMACOEPIDEMIOLOGIST 07/02/2008 6:01 PM PHARMACOEPIDEMIOLOGIST Omid Young MD HEMATOLOGY ORDERABLES Edited Performing Organization Address [facility] de Phone Number INTERFACE SYSTEM Refer to clinic/hospital department [facility] CLIA# [id number] [address] [place] [address] * AMYLASE (07/02/2008 5:40 PM PHARMACOEPIDEMIOLOGIST) AMYLASE 77 28 - 100 U/L [facility] Blood specimen (specimen) 07/02/2008 5:40 PM PHARMACOEPIDEMIOLOGIST 07/02/2008 6:01 PM PHARMACOEPIDEMIOLOGIST Omid Young MD CHEMISTRY ORDERABLES Final R esult Performing Organization Address [facility] de Phone Number INTERFACE SYSTEM Refer to clinic/hospital department [facility] CLIA# [id number] [address] [place] [address] documented in this encounter Visit Diagnoses Diagnosis Unspecified intestinal obstruction documented in this encounter Care Teams Annual Giving Manager Relationship Specialty Start Date End Date Neida Nguyen DO PCP - General Internal Medicine 05/01/13 documented as of this encounter
--- OUTSIDE RECORDS SUMMARY | 2025-05-19 13:08 | XMS_ITS | Encounter Summary ---
Author Organization [facility] Address [address] [place] [address] Care Team Providers Care Behavioral Health Associate Name Role Phone Sachin Nguyen DO Primary Care Provider Unavailable Encounter Details Date Type Department Care Team (Latest Contact Info) Description 07/30/2008 Outpatient Historical [facility], [address] Juan Arambula MD [address] [place] [address] Other Specified Gastritis without Mention of Hemorrhage Social History Tobacco Use Types Packs/Day Years Used Date Smoking Tobacco: Never Assessed Comments Unknown Sex and Gender Information Value Date Recorded Sex Assigned at Not on file Legal Sex Female 3:41 AM BUFFING WHEEL PRESSER Gender Identity Not on file Sexual Orientation Not on file documented as of this encounter Plan of Treatment Not on file documented as of this encounter Procedures Procedure Name Priority Date/Time Associated Diagnosis Comments PATHOLOGY Routine 07/30/2008 3:35 PM BUFFING WHEEL PRESSER documented in this encounter Results * PATHOLOGY (07/30/2008 3:35 PM BUFFING WHEEL PRESSER) FINAL REPORT [address] [address] Patient: JORDEN SOL : 1965 Procedure Date: 07/30/2008 Accession Date: 07/30/2008 Case No: [id number] Ordering Dr: JUAN ARAMBULA Case types AW, BW, FW, NW and SH are performed by [facility], [place], [place] SURGICAL PATHOLOGY & NON-GYNECOLOGIC CYTOPATHOLOGY REPORT [...] 06:42 am Microscopic: Received are slides labeled [id number] Jorden Sol. Sections of antrum sample antral [...] 12:18 pm INTERFACE SYSTEM 07/30/2008 3:35 PM BUFFING WHEEL PRESSER us Juan Arambula MD PATHOLOGY/CYTOLOGY ORDERABLE S Final Result INTERFACE SYSTEM Refer to clinic/hospital department documented in this encounter Visit Diagnoses Diagnosis Other specified gastritis without mention of hemorrhage documented in this encounter Care Teams Behavioral Health Associate Relationship Specialty Start Date End Date Sachin Nguyen DO PCP - General Internal Medicine 05/01/13 documented as of this encounter
[2025-05-19 13:14] LABS: Alanine Aminotransferase 79 U/L (6-35); Albumin Level 4.7 g/dL (3.5-5.1); Alkaline Phosphatase 83 U/L (38-126); Anion Gap 11 mmol/L (4-12); Aspartate Amino Transferase 85 U/L (14-36); Bilirubin,Total 0.5 mg/dL (0.2-1.3); Blood Urea Nitrogen 9 mg/dL (7-17); Calcium 9.8 mg/dL (8.4-10.2); Carbon Dioxide 25 mmol/L (22-30); Chloride 101 mmol/L (98-107); Cholesterol 256 mg/dL (0-200); Estimated Glomerular Filt Rate > 60; Glucose 96 mg/dL (65-110); HDL Direct 43 mg/dL; Potassium 3.9 mmol/L (3.4-5.0); Sodium 137 mmol/L (137-145); Total Protein 8.3 g/dL (6.3-8.2); Triglycerides 159 mg/dL (<150)
[2025-05-19 18:52] LABS: Hemoglobin A1C 5.3 % (<5.7)
== END 2025-05-19 10:59 | disposition home or self-care (01) ==
LOC: ANHGOSHLAB 11:00
PROVIDERS: PCP Nurse Practitioner; Visit Provider Nurse Practitioner
DX: E78.1 Pure hyperglyceridemia (principal); I10 Essential (primary) hypertension; E55.9 Vitamin D deficiency, unspecified; F10.20 Alcohol dependence, uncomplicated; R60.0 Localized edema; Z83.3 Family history of diabetes mellitus
CPT/HCPCS: 36415; 80053; 80061; 82306; 83036; 85025